=== PATIENT | female | born 1945 | race Caucasian/White ===

== ENCOUNTER 2023-02-27 00:36 | Observation (INO) ==
[2023-02-27 01:13] LABS: Basophils # (auto) 0.03 K/uL (0.00-0.20); Basophils % (auto) 0.5 %; Eosinophils # (auto) 0.15 K/uL (0.00-0.50); Eosinophils % (auto) 2.5 %; Hematocrit (blood only) 37.1 % (37.0-47.0); Hemoglobin 12.4 g/dl (12.0-16.0); Immature Granulocytes # (auto) 0.02 K/uL (0.01-0.20); Immature Granulocytes % (auto) 0.3 %; Lymphocytes # (auto) 1.72 K/uL (1.20-3.40); Lymphocytes % (auto) 28.3 %; Mean Corpuscular Hgb Conc 33.4 g/dL (32.0-36.0); Mean Corpuscular Volume 86.7 fL (80.0-100.0); Mean Platelet Volume 11.1 fL (9.4-12.4); Monocytes # (auto) 0.63 K/uL (0.11-0.59); Monocytes % (auto) 10.4 %; Neutrophils # (auto) 3.53 K/uL (1.40-6.50); Platelet Count 172 K/uL (130-400); RDW Coefficient of Variation 13.4 % (11.5-14.5); RDW Standard Deviation 41.5 fL (36.4-46.3); Red Blood Count 4.28 M/uL (4.20-5.40); White Blood Count 6.08 K/ul (4.8-10.8)
[2023-02-27 01:26] LABS: Albumin Level 3.9 gm/dl (3.4-5.0); Bilirubin,Total 0.3 mg/dl (0.2-1.0); Calcium 9.4 mg/dl (8.6-10.3); Potassium 3.9 mmol/L (3.5-5.1)
[2023-02-27 01:32] LABS: Albumin Globulin Ratio 1.4 (0.9-2); BUN Creatinine Ratio 27.6 (10-20); Creatinine Clr Calc Pharmacy 47.1 ml/min; Est GFR (African American) 73.4 ml/min; Est GFR (Non-African American) 63.4 ml/min; Globulin 2.7 gm/dl (2.5-4.0); Total Protein 6.6 gm/dl (6.0-8.3)
[2023-02-27] MEDS ORDERED: ONDANSETRON INJ 2 MG/ML 2 ML VIAL IV STA (01:46)
[2023-02-27] MEDS ORDERED: MoRPHine SULFATE 4 MG/ML 1 ML CARP\\VIAL IV STA (01:46)
--- NOTE | 2023-02-27 01:51 | Emergency Department Note ---
Impression & Plan Chest pain, Arm pain ED Provider Note NAME: SANTOS TOLEDO AGE: 77 SEX: F : 1945 ARRIVES VIA: Ambulance INFORMANT: Patient ED PROVIDER(S): Sonido Sparrow DO CHIEF COMPLAINT: chest pain and arm pain HPI: Patient is a 77-year-old female who presents to the ER with a past medical history of CAD, with bypass for chest tightness associated with right arm pain. Symptoms started around 9:00 and were severe and then improved and almost resolved. Chest tightness was to the right of the chest particular to the middle/sternal. Was initially tight and then became a pain. She was brought in by EMS. Was given nitro and aspirin. Denies any belly pain, nausea, vomiting, or diarrhea. No dysuria, urgency, or frequency. No other exacerbating or remitting factors. ADDITIONAL HISTORY OBTAINED: Per HPI Chronic Medical/Social Conditions Affecting Care: Per HPI PAST MEDICAL HISTORY:See Below PAST SURGICAL HISTORY:See Below FAMILY HISTORY:See Below SOCIAL HISTORY:See Below HOME MEDICATIONS:See Below ALLERGIES:See Below VITALS:See Below PHYSICAL EXAMINATION: GENERAL: Sitting up in bed, alert, well appearing, well nourished, no distress, non-toxic EYE EXAM: normal conjunctiva. PERRL and EOM's grossly intact. OROPHARYNX:mucous membranes are moist NECK: supple, no nuchal rigidity, no adenopathy, non-tender LUNGS: Clear to auscultation. Normal chest wall mechanics HEART: no murmurs, S1 normal and S2 normal ABDOMEN: abdomen soft, non-tender, normo-active bowel sounds, no masses, no rebound or guarding. BACK: Back is symmetrical on inspection and there is no deformity, no midline tenderness, no CVA tenderness. SKIN: no rashes and no bruising UPPER EXTREMITIES: upper extremities are grossly normal. LOWER EXTREMITIES: No pitting edema. NEURO EXAM: Normal sensorium, cranial nerves II-XII grossly intact, normal speech, no gross weakness of arms, no gross weakness of legs. No drift. Finger to nose intact. Gross sensation intact. MEDICAL DECISION MAKING: Patient is a 77-year-old female with a past medical history of aortic stenosis, CAD with a bypass, hyperlipidemia, and hypertension who presents the ER for chest pain and right arm pain. IV was established blood work was obtained. Labs show no significant leukocytosis or anemia. BMP with slightly elevated chloride at 109. LFTs bilirubin and lipase was unremarkable. Troponin was negative. She was given morphine as prior to arrival she was given aspirin nitro. Pain resolved with the morphine. Chest x-ray and EKG were clean. She was updated bedside. She was discussed with the hospitalist for further evaluation and monitoring due to her risk factors. External Records Reviewed: None Consults/Care Managements Discussions: Per MDM Triage Nursing notes reviewed. Limited review of prior medical records performed Vital Signs: reviewed and remarkable for no significant abnormalities Differential diagnosis: Cardiac ischemia, aortic dissection, pulmonary embolism, pneumothorax, pneumonia, pericarditis, myocarditis, esophageal rupture, GERD, cholecystitis, pancreatitis, musculoskeletal, as well as other pathologies. ER treatment provided: See below Diagnostics interpreted by me include EKG and cardiac monitoring as listed below: -Cardiac Monitoring: An order was placed for continuous cardiac monitoring. The monitor shows a rate of 70 with sinus rhythm. -ECG: Sinus rhythm rate of 69 Normal axis No PVCs Septal Q waves QTc 456 -Laboratory studies:Interpreted by me as stated above in MDM and shown below. Imaging studies: Xrays: As interpreted by me: Portable AP upright 1 view of the chest shows no focal infiltrate CTs show: none Procedures:none Critical Care: None Past Med/Surg History Medical History 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 Atherosclerotic heart disease of [place] coronary artery without angina pectoris CHF (congestive heart failure) Chronic pain syndrome Encephalopathy Essential hypertension GERD (gastroesophageal reflux disease) Hyperlipidemia Hypothyroidism Neurogenic claudication Osteoarthritis of shoulder region Surgical History H/O spinal fusion H/O: section History of hip replacement History of knee replacement Hx of tonsillectomy Family History Father Prostate cancer Mother Hypertension CHF (congestive heart failure) Brother Liver cancer Colon cancer Brother History of kidney cancer Diabetes CHF (congestive heart failure) Social History Smoking Status: Never smoker Hx Alcohol Use: Yes Alcohol type: wine Alcohol Intake Frequency: Monthly or Less Hx Substance Use: No Preferred Language: Georgian Feels Safe at Home: Yes Allergies Allergies Allergy/AdvReac Type Severity Reaction Status Date / Time aripiprazole Allergy Unknown UNKNOWN Unverified 08/31/21 16:00 baclofen Allergy Unknown UNKNOWN Unverified 08/31/21 16:00 diazepam Allergy Unknown UNKNOWN Unverified 08/31/21 16:00 ketorolac Allergy Unknown UNKNOWN Unverified 08/31/21 16:00 oxaprozin Allergy Unknown UNKNOWN Unverified 08/31/21 16:00 Home Meds Home Medications Medication Instructions Recorded Confirmed levothyroxine 137 mcg tablet 137 mcg PO DAILY 12/06/20 02/20/23 (Synthroid) omeprazole 20 mg tablet,delayed 20 mg PO DAILY 12/06/20 02/20/23 release potassium chloride 20 mEq oral 20 meq PO DAILY 12/06/20 02/20/23 packet trazodone 150 mg tablet 150 mg PO DAILY 12/06/20 02/20/23 atenolol 25 mg tablet 25 mg PO BID 01/17/21 02/20/23 acetaminophen 325 mg capsule 650 mg PO Q4H PRN 02/20/23 02/20/23 buspirone 7.5 mg tablet 7.5 mg PO TID 02/20/23 02/20/23 duloxetine 30 mg capsule,delayed 30 mg PO BID 02/20/23 02/20/23 release furosemide 20 mg tablet 20 mg PO BID 02/20/23 02/20/23 polyethylene glycol 3350 17 gram 17 g PO DAILY PRN 02/20/23 02/20/23 oral powder packet Previous Rx's Medication Instructions Recorded simvastatin 20 mg tablet 20 mg PO DAILY #90 tabs 08/31/21 Results & Data (ED) Vital Signs Vital Signs - 24 hr 02/27/23 00:43 02/27/23 01:00 02/27/23 01:21 Temperature 36.5 C Temperature Source Oral Pulse Rate 72 72 Pulse Rate [Apical] 71 Respiratory Rate 16 18 Blood Pressure 130/63 Blood Pressure [Right Arm] 126/64 Blood Pressure Mean 85 Blood Pressure Mean [Right Arm] 84 Pulse Oximetry 95 95 Oxygen Delivery Method Room Air Room Air Oxygen Flow Rate Sepsis Recent Fever Within 48 Hours No Sepsis New/Unexplained Change in Mental Status No Sepsis Action Taken by Nursing No Action Required Oxygen Flow Rate - Titration Pulse Oximetry Post Tiitration 02/27/23 02:31 02/27/23 02:40 02/27/23 03:00 Temperature Temperature Source Pulse Rate 69 Pulse Rate [Apical] 77 Respiratory Rate 16 18 Blood Pressure 112/66 Blood Pressure [Right Arm] 131/58 L Blood Pressure Mean 86 Blood Pressure Mean [Right Arm] 82 Pulse Oximetry 100 88 L 97 Oxygen Delivery Method Room Air Nasal Cannula Oxygen Flow Rate 0 2 Sepsis Recent Fever Within 48 Hours Sepsis New/Unexplained Change in Mental Status Sepsis Action Taken by Nursing Oxygen Flow Rate - Titration 2 Pulse Oximetry Post Tiitration 98 02/27/23 03:04 Temperature Temperature Source Pulse Rate Pulse Rate [Apical] Respiratory Rate Blood Pressure Blood Pressure [Right Arm] Blood Pressure Mean Blood Pressure Mean [Right Arm] Pulse Oximetry 98 Oxygen Delivery Method Nasal Cannula Oxygen Flow Rate 2 Sepsis Recent Fever Within 48 Hours Sepsis New/Unexplained Change in Mental Status Sepsis Action Taken by Nursing Oxygen Flow Rate - Titration Pulse Oximetry Post Tiitration Laboratory Data 02/27/23 00:44 02/27/23 00:44 Lab Results 02/27/23 Range/Units 00:44 WBC 6.08 (4.8-10.8) K/ul RBC 4.28 (4.20-5.40) M/uL Hgb 12.4 (12.0-16.0) g/dl Hct 37.1 (37.0-47.0) % MCV 86.7 (80.0-100.0) fL MCH 29.0 (25.0-34.0) pg MCHC 33.4 (32.0-36.0) g/dL RDW Std Deviation 41.5 (36.4-46.3) fL RDW Coeff of Vy 13.4 (11.5-14.5) % Plt Count 172 (130-400) K/uL MPV 11.1 (9.4-12.4) fL Immature Gran % (Auto) 0.3 % Neut % (Auto) 58.0 % Lymph % (Auto) 28.3 % [place] % (Auto) 10.4 % Eos % (Auto) 2.5 % Baso % (Auto) 0.5 % Neut # (Auto) 3.53 (1.40-6.50) K/uL Lymph # (Auto) 1.72 (1.20-3.40) K/uL [place] # (Auto) 0.63 H (0.11-0.59) K/uL Eos # (Auto) 0.15 (0.00-0.50) K/uL Baso # (Auto) 0.03 (0.00-0.20) K/uL Immature Gran # (Auto) 0.02 (0.01-0.20) K/uL Sodium 141 (136-145) mmol/L Potassium 3.9 (3.5-5.1) mmol/L Chloride 109 H (98-107) mmol/L Carbon Dioxide 26 (21-32) mmol/L Anion Gap 6 (3-11) BUN 24 H (6-23) mg/dl Creatinine 0.87 (0.6-1.2) mg/dl Est Cr Clr Drug Dosing 47.1 ml/min Est GFR ( Amer) 73.4 ml/min Est GFR (Non-Af Amer) 63.4 ml/min BUN/Creatinine Ratio 27.6 H (10-20) Glucose 99 (70-99(Fasting)) mg/dl Calcium 9.4 (8.6-10.3) mg/dl Total Bilirubin 0.3 (0.2-1.0) mg/dl AST 15 (13-39) U/L ALT 11 (7-52) U/L Alkaline Phosphatase 81 (34-104) U/L Troponin I High Sens 7.0 (0-14) pg/ml Total Protein 6.6 (6.0-8.3) gm/dl Albumin 3.9 (3.4-5.0) gm/dl Globulin 2.7 (2.5-4.0) gm/dl Albumin/Globulin Ratio 1.4 (0.9-2) Lipase 66 (11-82) U/L Administered Medications Discontinued Medications Morphine Sulfate (Morphine Sulfate 4 Mg/Ml 1 Ml Carp\Vial) 4 mg IV NOW STA Stop: 02/27/23 01:47 Last Admin: 02/27/23 01:52 Dose: 4 mg Documented By: MARY JO Ondansetron HCl (Ondansetron Inj 2 Mg/Ml 2 Ml Vial) 4 mg IV NOW STA Stop: 02/27/23 01:47 Last Admin: 02/27/23 01:52 Dose: 4 mg Documented By: MARY JO Discharge Plan Visit Data Chief Complaint: Chest Pain Stated Complaint: Chest Pain, R Arm Pain ED Provider: Sonido Sparrow Discharge Problem: Chest pain, Arm pain Forms Stand Alone Forms: My [facility] Prescriptions Prescriptions: No Action trazodone 150 mg tablet 150 mg PO DAILY levothyroxine [Synthroid] 137 mcg tablet 137 mcg PO DAILY potassium chloride 20 mEq packet 20 meq PO DAILY omeprazole 20 mg tablet,delayed release (DR/EC) 20 mg PO DAILY atenolol 25 mg tablet 25 mg PO BID furosemide 20 mg tablet 20 mg PO BID buspirone 7.5 mg tablet 7.5 mg PO TID duloxetine 30 mg capsule,delayed release(DR/EC) 30 mg PO BID acetaminophen 325 mg capsule 650 mg PO Q4H PRN polyethylene glycol 3350 17 gram powder in packet 17 g PO DAILY PRN simvastatin 20 mg tablet 20 mg PO DAILY Qty: 90 3RF Referrals Referrals: Kimberly Guerra [Primary Care Provider] - Discharge Problem: Chest pain Qualifiers: Chest pain type: unspecified Qualified Code(s): R07.9 - Chest pain, unspecified Arm pain Qualifiers: Laterality: right Qualified Code(s): M79.601 - Pain in right arm
--- NOTE | 2023-02-27 07:01 | History & Physical Report ---
Date of Service February 27, 2023 Assessment & Plan (1) Chest pain: Plan: 77-year-old female with past medical history significant for CAD s/p CABG, CHF hypertension, hyperlipidemia, hypothyroidism, aortic stenosis, after sleep apnea but not using CPAP comes from [facility] with chest pain. Chest pain History of CAD status post stents and CABG EKG and troponin Currently chest pain-free we will follow serial cardiac enzymes and echo We will repeat patient monitor in telemetry N.p.o. for now Continue atenolol and statin Consult cardiology. Chronic diastolic CHF Moderate to severe aortic stenosis Continue home Lasix Monitor for volume overload Hypothyroidism on Synthyroid Hypertension Atenolol and Lasix. Lower extremity edema mildly erythematous will check Doppler. DVT prophylaxis SCDs for now. Disposition Observation med/telemetry Full code History of Present Illness Chief Complaint: Chest pain Primary Care Provider: [facility] 77-year-old female with past medical history significant for CAD s/p CABG, CHF hypertension, hyperlipidemia, hypothyroidism, aortic stenosis, sleep apnea but not using CPAP comes from [facility] with chest pain. Around 9 PM last evening she had right-sided chest pain radiated to right arm severe in severity. Lasted until she got aspirin and nitro. Currently chest pain resolved. Denies any headache. Vision is okay. No runny nose or sore throat. No cough. No fevers. During the episode she felt short of breath. Had some dizziness. No nausea. No abdominal pain. Normal bowel and bladder movements. Ambulates with a walker. She states she has chronic lower extremity edema right greater than left because of vein graft from Right leg. Legs are slightly erythematous and she states it is chronic. Past medical history as mentioned above Past surgical history. CABG, s/p cardiac stents, bilateral hip replacement. Right knee arthroplasty. Lumbar fusion surgery. Social history. No smoking. No alcohol. No drugs. Family history. Positive for heart disease as per records Allergies Allergy/AdvReac Type Severity Reaction Status Date / Time aripiprazole Allergy Unknown UNKNOWN Unverified 08/31/21 16:00 baclofen Allergy Unknown UNKNOWN Unverified 08/31/21 16:00 diazepam Allergy Unknown UNKNOWN Unverified 08/31/21 16:00 ketorolac Allergy Unknown UNKNOWN Unverified 08/31/21 16:00 oxaprozin Allergy Unknown UNKNOWN Unverified 08/31/21 16:00 Home Medications Medication Instructions Recorded Confirmed Type levothyroxine 137 mcg tablet 137 mcg PO DAILY 12/06/20 02/27/23 History (Synthroid) omeprazole 20 mg tablet,delayed 20 mg PO DAILY 12/06/20 02/27/23 History release potassium chloride 20 mEq oral 20 meq PO DAILY 12/06/20 02/27/23 History packet trazodone 150 mg tablet 150 mg PO DAILY 12/06/20 02/27/23 History atenolol 25 mg tablet 25 mg PO BID 01/17/21 02/27/23 History simvastatin 20 mg tablet 20 mg PO DAILY #90 tabs 08/31/21 02/27/23 Rx acetaminophen 325 mg capsule 650 mg PO Q4H PRN Constipation 02/20/23 02/27/23 History buspirone 7.5 mg tablet 7.5 mg PO TID 02/20/23 02/27/23 History duloxetine 30 mg capsule,delayed 30 mg PO BID 02/20/23 02/27/23 History release furosemide 20 mg tablet 20 mg PO BID 02/20/23 02/27/23 History Past Med/Surg History Medical History 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 Atherosclerotic heart disease of [place] coronary artery without angina pectoris CHF (congestive heart failure) Chronic pain syndrome Encephalopathy Essential hypertension GERD (gastroesophageal reflux disease) Hyperlipidemia Hypothyroidism Neurogenic claudication Osteoarthritis of shoulder region Surgical History H/O spinal fusion H/O: section History of hip replacement History of knee replacement Hx of tonsillectomy Family History Father Prostate cancer Mother Hypertension CHF (congestive heart failure) Brother Liver cancer Colon cancer Brother History of kidney cancer Diabetes CHF (congestive heart failure) Social History Smoking Status: Never smoker Hx Alcohol Use: Yes Alcohol type: wine Alcohol Intake Frequency: Monthly or Less Hx Substance Use: No Preferred Language: Estonian Feels Safe at Home: Yes Review of Systems Review of Systems: All systems reviewed & are unremarkable except as noted in HPI & below Physical Exam 2 Physical Exam: General- Not in distress Head- atraumatic Eyes- PERRL. ENT- oropharynx clear Neck- supple, no JVD. Lungs- clear to auscultation no wheezing or crackles. Heart- regular rhythm; no murmur, no gallop. Abdomen- normal bowel sounds, soft, nontender, no distension. Extremities- b/l lower extremity edema present Rt>Lt. Mild erythematous changes seen in lower extremity Neuro- alert, oriented x 3; PERRL, ; no facial palsy; no dysarthria; Skin- warm & dry Results & Data Results & Data Vital Signs (Past 12 Hours) Vital Signs Temp Pulse Pulse Resp BP BP Pulse Ox 02/27/23 05:30 64 18 117/63 98 02/27/23 05:00 64 22 125/63 96 02/27/23 04:30 67 18 121/70 98 02/27/23 04:00 71 14 121/61 96 02/27/23 03:30 65 18 125/67 96 02/27/23 03:04 98 02/27/23 03:00 69 18 112/66 97 02/27/23 02:40 88 L 02/27/23 02:31 77 16 131/58 L 100 02/27/23 01:21 72 02/27/23 01:00 71 18 126/64 95 02/27/23 00:43 36.5 C 72 16 130/63 95 O2 Del Method O2 Flow Rate 02/27/23 05:30 02/27/23 05:00 02/27/23 04:30 02/27/23 04:00 02/27/23 03:30 02/27/23 03:04 Nasal Cannula 2 02/27/23 03:00 Nasal Cannula 2 02/27/23 02:40 0 02/27/23 02:31 Room Air 02/27/23 01:21 02/27/23 01:00 Room Air 02/27/23 00:43 Room Air Diagnostic Findings Laboratory Results WBC 6.08 K/ul (4.8-10.8) 02/27/23 00:44 RBC 4.28 M/uL (4.20-5.40) 02/27/23 00:44 Hgb 12.4 g/dl (12.0-16.0) 02/27/23 00:44 Hct 37.1 % (37.0-47.0) 02/27/23 00:44 MCV 86.7 fL (80.0-100.0) 02/27/23 00:44 MCH 29.0 pg (25.0-34.0) 02/27/23 00:44 MCHC 33.4 g/dL (32.0-36.0) 02/27/23 00:44 RDW Std Deviation 41.5 fL (36.4-46.3) 02/27/23 00:44 RDW Coeff of Vy 13.4 % (11.5-14.5) 02/27/23 00:44 Plt Count 172 K/uL (130-400) 02/27/23 00:44 MPV 11.1 fL (9.4-12.4) 02/27/23 00:44 Immature Gran % (Auto) 0.3 % 02/27/23 00:44 Neut % (Auto) 58.0 % 02/27/23 00:44 Lymph % (Auto) 28.3 % 02/27/23 00:44 [place] % (Auto) 10.4 % 02/27/23 00:44 Eos % (Auto) 2.5 % 02/27/23 00:44 Baso % (Auto) 0.5 % 02/27/23 00:44 Neut # (Auto) 3.53 K/uL (1.40-6.50) 02/27/23 00:44 Lymph # (Auto) 1.72 K/uL (1.20-3.40) 02/27/23 00:44 [place] # (Auto) 0.63 K/uL (0.11-0.59) H 02/27/23 00:44 Eos # (Auto) 0.15 K/uL (0.00-0.50) 02/27/23 00:44 Baso # (Auto) 0.03 K/uL (0.00-0.20) 02/27/23 00:44 Immature Gran # (Auto) 0.02 K/uL (0.01-0.20) 02/27/23 00:44 Sodium 141 mmol/L (136-145) 02/27/23 00:44 Potassium 3.9 mmol/L (3.5-5.1) 02/27/23 00:44 Chloride 109 mmol/L (98-107) H 02/27/23 00:44 Carbon Dioxide 26 mmol/L (21-32) 02/27/23 00:44 Anion Gap 6 (3-11) 02/27/23 00:44 BUN 24 mg/dl (6-23) H 02/27/23 00:44 Creatinine 0.87 mg/dl (0.6-1.2) 02/27/23 00:44 Est Cr Clr Drug Dosing 47.1 ml/min 02/27/23 00:44 Est GFR ( Amer) 73.4 ml/min 02/27/23 00:44 Est GFR (Non-Af Amer) 63.4 ml/min 02/27/23 00:44 BUN/Creatinine Ratio 27.6 (10-20) H 02/27/23 00:44 Glucose 99 mg/dl (70-99(Fasting)) 02/27/23 00:44 Calcium 9.4 mg/dl (8.6-10.3) 02/27/23 00:44 Total Bilirubin 0.3 mg/dl (0.2-1.0) 02/27/23 00:44 AST 15 U/L (13-39) 02/27/23 00:44 ALT 11 U/L (7-52) 02/27/23 00:44 Alkaline Phosphatase 81 U/L (34-104) 02/27/23 00:44 Troponin I High Sens 7.0 pg/ml (0-14) 02/27/23 00:44 Total Protein 6.6 gm/dl (6.0-8.3) 02/27/23 00:44 Albumin 3.9 gm/dl (3.4-5.0) 02/27/23 00:44 Globulin 2.7 gm/dl (2.5-4.0) 02/27/23 00:44 Albumin/Globulin Ratio 1.4 (0.9-2) 02/27/23 00:44 Lipase 66 U/L (11-82) 02/27/23 00:44 ECG Additional Comments: ECG. Normal sinus rhythm with rate of 69. No significant change was found. Code Status & VTE Plan VTE Prophylaxis Plan VTE Prophylaxis will be ordered: Yes (1) Chest pain Chest pain type: unspecified Qualified Code(s): R07.9 - Chest pain, unspecified
--- NOTE | 2023-02-27 07:05 | XRay Report ---
XR chest 1V portable HISTORY: 77 years-old Female Chest pain, nonspecific COMPARISON: Left shoulder radiographs 09/30/2018 TECHNIQUE: AP view of the chest FINDINGS: Cardiac silhouette is enlarged. Sternotomy wires are noted. No pneumothorax, pleural effusion, airspa ce consolidation or pulmonary edema. Degenerative changes of the spine and right shoulder. Left shoul calista postoperative changes with arthroplasty revision. IMPRESSION: Cardiomegaly without acute process. ACT 112: Negative or not required by law. The above report was generated using voice recognition software. It may contain grammatical, syntax o r spelling errors. Electronically signed by: Chavez Palma M.D. 02/27/2023 7:03 AM
[2023-02-27] MEDS ORDERED: POLYETHYLENE (MIRALAX) 17 GM PACK PO PRN (07:46)
[2023-02-27] MEDS ORDERED: NITROGLYCERIN SL 0.4 MG/TAB TAB SL PRN (07:46)
--- NOTE | 2023-02-27 08:36 | Electrocardiogram Report ---
Test Reason : Blood Pressure : / mmHG Vent. Rate : 069 BPM Atrial Rate : 069 BPM P-R Int : 196 ms QRS Dur : 088 ms QT Int : 426 ms P-R-T Axes : 051 -03 036 degrees QTc Int : 456 ms Normal sinus rhythm Normal ECG When compared with ECG of 04-FEB-2015 07:57, No significant change was found Confirmed by Shawn Kumar ([id number]) on 02/27/2023 8:35:45 AM Referred By: [facility] Confirmed By:Shawn Kumar
[2023-02-27] MEDS ORDERED: SIMVASTATIN 20 MG TAB PO SCH (09:00)
[2023-02-27 09:11] LABS: Basophils # (auto) 0.03 K/uL (0.00-0.20); Basophils % (auto) 0.5 %; Eosinophils # (auto) 0.15 K/uL (0.00-0.50); Eosinophils % (auto) 2.6 %; Hematocrit (blood only) 36.8 % (37.0-47.0); Hemoglobin 12.1 g/dl (12.0-16.0); Immature Granulocytes # (auto) 0.02 K/uL (0.01-0.20); Immature Granulocytes % (auto) 0.4 %; Lymphocytes % (auto) 31.7 %; Mean Corpuscular Hgb Conc 32.9 g/dL (32.0-36.0); Mean Corpuscular Volume 88.2 fL (80.0-100.0); Mean Platelet Volume 10.4 fL (9.4-12.4); Monocytes # (auto) 0.62 K/uL (0.11-0.59); Monocytes % (auto) 10.9 %; Neutrophils # (auto) 3.05 K/uL (1.40-6.50); Neutrophils % (auto) 53.9 %; Platelet Count 143 K/uL (130-400); RDW Coefficient of Variation 13.4 % (11.5-14.5); RDW Standard Deviation 43.3 fL (36.4-46.3); Red Blood Count 4.17 M/uL (4.20-5.40); White Blood Count 5.67 K/ul (4.8-10.8)
[2023-02-27 09:19] LABS: BUN Creatinine Ratio 31.7 (10-20); Calcium 9.3 mg/dl (8.6-10.3); Est GFR (African American) 78.9 ml/min; Est GFR (Non-African American) 68.1 ml/min; Potassium 4.3 mmol/L (3.5-5.1)
[2023-02-27 09:24] LABS: Troponin I High Sensitivity 5.6 pg/ml (0-14)
--- NOTE | 2023-02-27 09:51 | XCELERA ---
[id number]
[2023-02-27] MEDS: LEVOTHYROXINE SODIUM 137 MCG TABLET PO SCH (09:52)
--- NOTE | 2023-02-27 10:04 | Ultrasound Report ---
BILATERAL LOWER EXTREMITY VENOUS DOPPLER HISTORY: Acute pain and swelling of the lower legs b/l lower extremity edema and eythema. dvt? COMPARISON STUDY: 01/17/2023 FINDINGS: There is normal compressibility, flow, and augmentation within the bilateral lower extremit y deep venous systems. IMPRESSION: No DVT within the right or left lower extremity. ACT 112: Negative or not required by law. Electronically signed by: Chavez Palma M.D. 02/27/2023 10:02 AM
--- NOTE | 2023-02-27 10:45 | Cardiology Consultation ---
Date of Consultation February 27, 2023 Assessment & Plan (1) Right shoulder pain: (2) CAD (coronary artery disease): (3) S/P CABG x 2: (4) Severe aortic stenosis: (5) (HFpEF) heart failure with preserved ejection fraction: (6) Ambulatory dysfunction: (7) Essential hypertension: Plan 1. Shoulder pain: 77-year-old woman with severe aortic stenosis and longstanding coronary artery disease with multiple revascularizations (including CABG) who had abrupt onset of severe right shoulder and chest discomfort yesterday with normal ECG and negative serial troponin draws. Her shoulder pain seems most likely musculoskeletal or neuropathic and should be addressed as such. There is no evidence of ongoing myocardial ischemia, congestive heart failure, or dysrhythmia. 2. CAD/CABG: Would not recommend stress testing at this point, since an abnormal study would not likely change advisor. In the absence of lifestyle limiting symptoms directly attributable to myocardial ischemia, continued medical management of her coronary artery disease would be more appropriate than revascularization. Since her shoulder pain seems noncardiac, attempts at improving her cardiac status will not affect her symptoms. Unclear why she is no longer taking aspirin 81 mg daily, if no contraindication would resume aspirin. She has been on longstanding atenolol, the dose was reduced last year, unclear whether it was increased back to twice daily or current dosing does not reflect this change. With history of syncope, presence of severe aortic stenosis, and borderline bradycardia, would recommend reducing atenolol from 25 mg twice daily to 25 mg daily. Continue statin indefinitely, would recommend changing from simvastatin to atorvastatin 20 mg daily given reduced potential for medication interactions w ith atorvastatin. 3. Severe aortic stenosis/ambulatory dysfunction: Although echocardiographically severe, she currently does not have lifestyle limiting symptoms, as her activity is more limited by ambulatory dysfunction then valvular disease. Although she would be a transcatheter aortic valve replacement (TAVR) candidate, would only consider this if she had lifestyle limiting symptoms (severe dyspnea on exertion, angina at low workloads, recurrent syncope). 4. HFpEF: No overt heart failure or hospitalizations for heart failure. Presumptive diagnosis based on the fact she is on furosemide 20 mg twice daily. She appears euvolemic currently, no change in her routine diuretic regimen. 5. Hypertension: BP normotensive on atenolol and furosemide. As noted, would recommend reducing atenolol dosing. History of Present Illness Reason for Consultation: Chest pain Requesting Physician: Eldon Vickers MD Attending Physician: Cr Dubose MD History of Present Illness 77-year-old woman with severe aortic stenosis, longstanding coronary artery disease (remote NV, 6 stents, CABG 2017, details unavailable), mild HFpEF, and ambulatory dysfunction (walks with a walker) who is a resident of [facility] and was admitted earlier today with right shoulder discomfort radiating to her chest. 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 Although she had does have limitations from the right shoulder she does not have chronic pain. Yesterday, while at rest, she noted abrupt onset of right shoulder discomfort radiating to her chest and right elbow. She still had the pain upon ER presentation where ECG was normal and troponin unremarkable. She states that the discomfort gradually improved but never resolved, she still has a "dull ache" right shoulder which is not exacerbated by positional change. She has discomfort when pushing her right arm against resistance, but this is "different" in character than her right shoulder discomfort. She denies any diaphoresis, nausea, dyspnea, palpitations, presyncope, or syncope. She does note periodic vertigo type symptoms which can occur when she is lying down. She does have severe aortic stenosis and dyspnea on moderate levels of exertion. She states that her dyspneic symptoms are not lifestyle limiting and are unchanged over the past year. She denies orthopnea or PND. She has chronic mild right leg edema. She had a hospitalization March 2022 for ureteral stone, upon discharge she had a mechanical fall and a subsequent stay at [facility] due to ambulatory dysfunction. She did have an unexplained syncopal episode early in 2021 and it is recommended that her atenolol be reduced from 25 mg twice daily to once daily at that time. Most recently, she had been able to ambulate with her walker without difficulty and felt reasonably well. At the time of my evaluation this morning, she still had very mild right shoulder achiness but no other somatic complaints at rest. Allergies Allergy/AdvReac Type Severity Reaction Status Date / Time aripiprazole Allergy Unknown UNKNOWN Unverified 08/31/21 16:00 baclofen Allergy Unknown UNKNOWN Unverified 08/31/21 16:00 diazepam Allergy Unknown UNKNOWN Unverified 08/31/21 16:00 ketorolac Allergy Unknown UNKNOWN Unverified 08/31/21 16:00 oxaprozin Allergy Unknown UNKNOWN Unverified 08/31/21 16:00 Home Medications Medication Instructions Recorded Confirmed Type levothyroxine 137 mcg tablet 137 mcg PO DAILY 12/06/20 02/27/23 History (Synthroid) omeprazole 20 mg tablet,delayed 20 mg PO DAILY 12/06/20 02/27/23 History release potassium chloride 20 mEq oral 20 meq PO DAILY 12/06/20 02/27/23 History packet trazodone 150 mg tablet 150 mg PO DAILY 12/06/20 02/27/23 History atenolol 25 mg tablet 25 mg PO BID 01/17/21 02/27/23 History simvastatin 20 mg tablet 20 mg PO DAILY #90 tabs 08/31/21 02/27/23 Rx acetaminophen 325 mg capsule 650 mg PO Q4H PRN Constipation 02/20/23 02/27/23 History buspirone 7.5 mg tablet 7.5 mg PO TID 02/20/23 02/27/23 History duloxetine 30 mg capsule,delayed 30 mg PO BID 02/20/23 02/27/23 History release furosemide 20 mg tablet 20 mg PO BID 02/20/23 02/27/23 History Patient History Medical History Neurogenic claudication Chronic pain syndrome CHF (congestive heart failure) 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 Atherosclerotic heart disease of [place] coronary artery without angina pectoris Hypothyroidism Osteoarthritis of shoulder region Hyperlipidemia GERD (gastroesophageal reflux disease) Essential hypertension Encephalopathy Surgical History H/O: section Hx of tonsillectomy History of knee replacement History of hip replacement H/O spinal fusion Family History Father Prostate cancer Mother Hypertension CHF (congestive heart failure) Brother Liver cancer Colon cancer Brother History of kidney cancer Diabetes CHF (congestive heart failure) Social History Smoking Status: Never smoker Hx Alcohol Use: Yes Alcohol type: wine Alcohol Intake Frequency: Monthly or Less Hx Substance Use: No Communication Ability: Effective Beliefs That Will Affect Care: None Current Living Situation: Personal Care Facility Feels Safe at Home: Yes Safety Concerns: Feels Safe At This Time Physical Exam Physical Exam: No distress. BP normotensive. Pulse 64 bpm and regular without ectopy. Respirations unlabored. Skin: no ecchymoses or generalized lesions. HEENT: unremarkable. Neck: JVP at the clavicle at 90 degrees, bilateral transmitted carotid murmur. Lungs: clear. Cardiac: regular rhythm, diminished but audible aortic closure sound, 3/6 elias cendo decrescendo systolic ejection murmur right upper sternal border rating widely (carotids, left sternal border), 2/6 apical holosystolic murmur rating to the axilla, no diastolic murmur. Abdomen: benign. Extremities: Trace pretibial edema, right greater than left, pulses intact. Neurologic: normal affect and conversation, nonfocal. Results & Data Laboratory Results Troponin values of 7.0 and 5.6. Normal CBC. Normal electrolytes with BUN 26 and creatinine 0.82. Magnesium 2.0. Diagnostic Findings ECG on admission showed sinus rhythm at 69 bpm and was completely unremarkable. Compared with 2014 ECG, no significant change. Echocardiogram done today showed EF 60 to 65% with moderate LVH and grade 1 diastolic dysfunction, severe AR/mild to moderate MR. Unchanged compared with September 2021 study. Chest x-ray showed cardiomegaly without acute process. Venous Doppler showed no DVT right or left lower extremity. PG Care Time/CCT Total # of Minutes Spent Total Time Spent with Patient: Total time spent is greater than 50% in coordination of care (as documented) at patient's floor/unit and/or counseling patient: Coding Level of Care Code 53568 IN/OBS CONSULT LVL 4,60M Diagnoses Right shoulder pain M25.511 CAD (coronary artery disease) I25.10 S/P CABG x 2 Z95.1 Severe aortic stenosis I35.0 (HFpEF) heart failure with preserved ejection fraction I50.30 Ambulatory dysfunction R26.2 Essential hypertension I10
[2023-02-27] MEDS: POTASSIUM CHLORIDE PWD 20 MEQ PACK PO SCH (10:58)
[2023-02-27] MEDS: busPIRone 7.5 MG TAB PO SCH ×3 (10:59→21:43)
[2023-02-27] MEDS: DULoxetine HCL 30 MG CAP PO SCH ×3 (11:00→21:46)
[2023-02-27] MEDS: FUROSEMIDE 20 MG TAB PO SCH ×2 (11:00→17:24)
[2023-02-27] MEDS: PANTOprazole 40 MG TAB PO SCH (11:00)
[2023-02-27] MEDS: ATENOLOL 25 MG TABLET PO SCH ×2 (11:01→21:43)
--- NOTE | 2023-02-27 14:07 | XRay Report ---
XR shoulder RT min 2V routine CLINICAL HISTORY: r shoulder pain TECHNIQUE: 3 views of the right shoulder were obtained. Comparison: None available at the time of this dictation. FINDINGS: There is no evidence of an acute fracture. Degenerative changes are seen in the glenohumeral joint. T he overlying soft tissues are unremarkable. The visualized portions of the lungs are clear. IMPRESSION: Degenerative changes without evidence of acute abnormality. ACT 112: Negative or not required by law. Electronically signed by: Humza Butcher M.D. 02/27/2023 2:06 PM
[2023-02-27] MEDS ORDERED: traZODone HCL 50 MG TAB PO SCH (21:00)
[2023-02-27] MEDS: ACETAMINOPHEN 325 MG TAB PO PRN (21:41)
[2023-02-28] MEDS: LEVOTHYROXINE SODIUM 137 MCG TABLET PO SCH (06:42)
[2023-02-28] MEDS: ACETAMINOPHEN 325 MG TAB PO PRN (06:48)
[2023-02-28] MEDS: DULoxetine HCL 30 MG CAP PO SCH (08:36)
[2023-02-28] MEDS: FUROSEMIDE 20 MG TAB PO SCH ×2 (08:36→16:38)
[2023-02-28] MEDS: ATENOLOL 25 MG TABLET PO SCH (08:36)
[2023-02-28] MEDS: PANTOprazole 40 MG TAB PO SCH (08:36)
[2023-02-28] MEDS: busPIRone 7.5 MG TAB PO SCH ×2 (08:36→13:53)
[2023-02-28] MEDS: POTASSIUM CHLORIDE PWD 20 MEQ PACK PO SCH (08:36)
[2023-02-28] MEDS ORDERED: ATORVASTATIN 20 MG TAB PO SCH ×2 (09:00→21:00)
[2023-02-28] MEDS ORDERED: Nursing to Pharmacy Communication SCH (10:00)
--- NOTE | 2023-02-28 13:06 | Cardiology Progress Note ---
Date of Service February 28, 2023 Assessment & Plan (1) Right shoulder pain: (2) CAD (coronary artery disease): (3) S/P CABG x 2: (4) Severe aortic stenosis: (5) (HFpEF) heart failure with preserved ejection fraction: (6) Ambulatory dysfunction: (7) Essential hypertension: Plan As noted, pain seems either musculoskeletal or neuropathic. No cardiac testing planned. Despite significant ongoing symptoms and her ECG and enzymes remain normal. Would recommend resuming aspirin 81 mg daily for CAD/CABG patient. Given blunted heart rate response despite physiologic stress of pain/discomfort, could decrease atenolol to 25 mg daily As noted, would not proceed to TAVR in the absence of lifestyle limiting symptoms (which are not present currently). Appears euvolemic and no overt heart failure on her usual diuretic regimen of furosemide 20 mg twice daily. BP normotensive on atenolol and furosemide. Admission and Anticipated Discharge Date Admission Date: February 27, 2023 Subjective Uneventful night. Patient notes that this morning she "aches all over". No chest pain but still has right shoulder discomfort which is mild to moderate and essentially unchanged over the past 24 hours. No dyspnea, palpitations, or lightheadedness. Telemetry showed sinus rhythm in the 60 to 70 bpm range with no significant ectopy or dysrhythmia. Physical Exam Physical Exam: No distress. BP normotensive. Pulse 68 bpm and regular without ectopy. Respirations unlabored. Skin: no ecchymoses or generalized lesions. HEENT: unremarkable. Neck: JVP at the clavicle at 90 degrees, bilateral transmitted carotid murmur. Lungs: clear. Cardiac: regular rhythm, diminished but audible aortic closure sound, 3/6 crescendo decrescendo systolic ejection murmur right upper sternal border rating widely (carotids, left sternal border), 2/6 apical holosystolic murmur rating to the axilla, no diastolic murmur. Abdomen: benign. Extremities: Trace pretibial edema, right greater than left, pulses intact. Neurologic: normal affect and conversation, nonfocal. Results & Data Vital Signs (Past 12 Hours) Vital Signs Temp Pulse Pulse Resp BP Pulse Ox O2 Del Method 02/28/23 12:59 97.9 F 69 18 113/66 97 Room Air 02/28/23 08:15 69 02/28/23 08:13 97.7 F 71 14 111/69 96 Room Air 02/28/23 03:40 97.5 F L 68 18 140/82 95 Room Air Laboratory Results Troponin negative x4. Diagnostic Findings ECG today showed sinus rhythm with loss of a small R wave in V2 versus yesterday (likely lead placement), otherwise no significant change. ST segments were isoelectric. PG Care Time/CCT Total # of Minutes Spent Total Time Spent with Patient: Total time spent is greater than 50% in coordination of care (as documented) at patient's floor/unit and/or counseling patient: Coding Level of Care Code 37491 SUB INP/OBS CARE 2/35MIN Diagnoses Right shoulder pain M25.511 CAD (coronary artery disease) I25.10 S/P CABG x 2 Z95.1 Severe aortic stenosis I35.0 (HFpEF) heart failure with preserved ejection fraction I50.30 Ambulatory dysfunction R26.2 Essential hypertension I10
--- NOTE | 2023-02-28 13:59 | Hospitalist Progress Note ---
Date of Service February 28, 2023 Assessment & Plan (1) Chest pain: Plan: per admitting service notes with addendum: 77-year-old female with past medical history significant for CAD s/p CABG, CHF hypertension, hyperlipidemia, hypothyroidism, aortic stenosis, after sleep apnea but not using CPAP comes from [facility] with chest pain. 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 Kumar no further cardiac diagnostic studies/interventions at this time recommend: ASA 81mg po daily, Decrease Atenolol to 25mg daily (patient declines as she needs BID dosing for BP control), change Simvastatin to Rosuvastatin R shoulder Pain, secondary to Osteoarthritis Shoulder Xray: There is no evidence of an acute fracture. Degenerative changes are seen in the glenohumeral joint. The overlying soft tissues are unremarkable. The visualized portions of the lungs are clear. IMPRESSION: Degenerative changes without evidence of acute abnormality. patient would like to ff up with [facility] as outpatient, for possible steroid injection Chronic diastolic CHF Moderate to severe aortic stenosis Continue home Lasix Hypothyroidism on Synthyroid Hypertension Atenolol and Lasix. Lower extremity edema mildly erythematous check Doppler: no DVT DVT prophylaxis SCDs for now. Disposition return to [facility] ff up with PCP in 1 week ff up with Ortho in 1 week Admission and Anticipated Discharge Date Admission Date: February 27, 2023 Subjective ff up for R shoulder pain, etc seen resting in chair, comfortable states she feels fine overall mild R shoulder discomfort no chest pain, dyspnea, palpitations, dizziness no R arm numbness, weakness, paresthesias no other symptom Review of Systems Review of Systems: all noted and negative except for above Physical Exam Physical Exam: General- oriented x 3, not in distress, speaks in sentences with no effort or accessory muscle use Eyes- anicteric Neck- no JVD Lungs- clear breath sounds bilaterally, no rales/wheezes Heart- normal rate, regular rhythm; no murmurs Abdomen- normal bowel sounds, nondistended, soft, nontender Extremities- no pretibial edema, no calf tenderness Neuro- alert, oriented x 3; no gross focal neurologic deficits Skin- warm & dry Results & Data Results & Data Vital Signs (Past 12 Hours) Vital Signs Temp Pulse Pulse Resp BP Pulse Ox O2 Del Method 02/28/23 12:59 36.6 C 69 18 113/66 97 Room Air 02/28/23 08:15 69 02/28/23 08:13 36.5 C 71 14 111/69 96 Room Air 02/28/23 03:40 36.4 C L 68 18 140/82 95 Room Air all noted and reviewed including below (1) Chest pain Chest pain type: unspecified Qualified Code(s): R07.9 - Chest pain, unspecified
--- NOTE | 2023-02-28 14:14 | Discharge Summary ---
Discharge Summary Date of Service February 28, 2023 Notes For Next Care Provider Medication Changes From Visit TAKE A BABY ASPIRIN DAILY, ALWAYS WITH A FULL STOMACH CHANGE SIMVASTATIN TO ROSUVASTATIN Admission HPI Per Admitting Provider 77-year-old female with past medical history significant for CAD s/p CABG, CHF hypertension, hyperlipidemia, hypothyroidism, aortic stenosis, sleep apnea but not using CPAP comes from [facility] with chest pain. Around 9 PM last evening she had right-sided chest pain radiated to right arm severe in severity. Lasted until she got aspirin and nitro. Currently chest pain resolved. Denies any headache. Vision is okay. No runny nose or sore throat. No cough. No fevers. During the episode she felt short of breath. Had some dizziness. No nausea. No abdominal pain. Normal bowel and bladder movements. Ambulates with a walker. She states she has chronic lower extremity edema right greater than left because of vein graft from Right leg. Legs are slightly erythematous and she states it is chronic. Past medical history as mentioned above Past surgical history. CABG, s/p cardiac stents, bilateral hip replacement. Right knee arthroplasty. Lumbar fusion surgery. Social history. No smoking. No alcohol. No drugs. Family history. Positive for heart disease as per records Admission Exam Per Admitting Provider General- Not in distress Head- atraumatic Eyes- PERRL. ENT- oropharynx clear Neck- supple, no JVD. Lungs- clear to auscultation no wheezing or crackles. Heart- regular rhythm; no murmur, no gallop. Abdomen- normal bowel sounds, soft, nontender, no distension. Extremities- b/l lower extremity edema present Rt>Lt. Mild erythematous changes seen in lower extremity Neuro- alert, oriented x 3; PERRL, ; no facial palsy; no dysarthria; Skin- warm & dry Principal Dx & Hospital Course #1 = Principal Diagnosis (1) Chest pain: per admitting service notes with addendum: 77-year-old female with past medical history significant for CAD s/p CABG, CHF hypertension, hyperlipidemia, hypothyroidism, aortic stenosis, after sleep apnea but not using CPAP comes from [facility] with chest pain. 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 Degenerative changes are seen in the glenohumeral joint. The overlying soft tissues are unremarkable. The visualized portions of the lungs are clear. IMPRESSION: Degenerative changes without evidence of acute abnormality. patient would like to ff up with [facility] as outpatient, for possible steroid injection Chronic diastolic CHF Moderate to severe aortic stenosis Continue home Lasix Hypothyroidism on Synthyroid Hypertension Atenolol and Lasix. Lower extremity edema mildly erythematous check Doppler: no DVT DVT prophylaxis SCDs for now. Disposition return to [facility] ff up with PCP in 1 week ff up with Ortho in 1 week Discharge Exam General- oriented x 3, not in distress, speaks in sentences with no effort or accessory muscle use Eyes- anicteric Neck- no JVD Lungs- clear breath sounds bilaterally, no rales/wheezes Heart- normal rate, regular rhythm; no murmurs Abdomen- normal bowel sounds, nondistended, soft, nontender Extremities- no pretibial edema, no calf tenderness Neuro- alert, oriented x 3; no gross focal neurologic deficits Skin- warm & dry Updated Medication List Medication Instructions Recorded Confirmed Type levothyroxine 137 mcg tablet 137 mcg PO DAILY 12/06/20 02/27/23 History (Synthroid) omeprazole 20 mg tablet,delayed 20 mg PO DAILY 12/06/20 02/27/23 History release potassium chloride 20 mEq oral 20 meq PO DAILY 12/06/20 02/27/23 History packet trazodone 150 mg tablet 150 mg PO DAILY 12/06/20 02/27/23 History atenolol 25 mg tablet 25 mg PO BID 01/17/21 02/27/23 History simvastatin 20 mg tablet 20 mg PO DAILY #90 tabs 08/31/21 02/27/23 Rx acetaminophen 325 mg capsule 650 mg PO Q4H PRN Constipation 02/20/23 02/27/23 History buspirone 7.5 mg tablet 7.5 mg PO TID 02/20/23 02/27/23 History duloxetine 30 mg capsule,delayed 30 mg PO BID 02/20/23 02/27/23 History release furosemide 20 mg tablet 20 mg PO BID 02/20/23 02/27/23 History aspirin 81 mg tablet,delayed 81 mg PO DAILY #30 tabs 02/28/23 Rx release (Ecotrin Low Strength) atorvastatin 20 mg tablet 20 mg PO HS #30 tabs 02/28/23 Rx Hospital Stay Data Consultations 02/27/23 02:49 ED Decision to Admit Stat 02/27/23 08:00 Consult Cardiology Routine 02/27/23 19:33 Consult Orthopedic Surgery Routine Diagnostic Imagining Performed 02/27/23 08:13 US venous doppler LE BI Urgent Pending Results Patient Have Any Pending Studies at Discharge: No Discharge Instructions Given to Patient (Per Discharging Provider) PLEASE REFER TO YOUR NEW MEDICATION LIST AND FOLLOW INSTRUCTIONS CAREFULLY. YOUR NEW MEDICATIONS INCLUDE: TAKE A BABY ASPIRIN DAILY, ALWAYS WITH A FULL STOMACH CHANGE SIMVASTATIN TO ROSUVASTATIN PLEASE CALL YOUR PRIMARY CARE PHYSICIAN OR RETURN TO THE ER IF WITH WORSENING OF SYMPTOMS, INCLUDING WORSENING SHOULDER PAIN, ARM WEAKNESS/NUMBNESS, CHEST PAIN, SHORTNESS OF BREATH, PALPITATIONS, DIZZINESS, ETC FOLLOW UP WITH PRIMARY CARE PHYSICIAN IN 1 WEEK. FOLLOW UP WITH ORTHOPEDIC SURGEON IN 1-2 WEEKS FOR POSSIBLE STEROID INJECTION. PLEASE CONTACT THEIR OFFICE TO SET UP AN APPOINTMENT: [facility] [address] [place] [address], [place] [address] or Hours: 8 pm 5 pm Total Time Total Time Spent Total Time Spent (In Minutes): >30 MINUTES
--- NOTE | 2023-02-28 15:07 | Orthopedic Consultation ---
Date of Consultation February 28, 2023 Assessment & Plan (1) Rotator cuff tear arthropathy of right shoulder: She has obvious chronic right shoulder rotator cuff tear arthropathy. It sounds like her right shoulder pain has been progressively worsening over quite some time, but got more severe in the past few days. She has never had this treated before. No urgent orthopedic surgical intervention required. Recommend follow- up in clinic for further more detailed evaluation and treatment of this chronic shoulder problem. Follow-up with Dr. Pathak in orthopedic surgery clinic at some point 2 to 4 weeks after discharge. Please call [facility] at [phone] to make an appointment. History of Present Illness Reason for Consultation: "R shoulder pain" Attending Physician: Cr Dubose MD History of Present Illness Ms. Pham is a 77-year-old female with acute on chronic right shoulder pain. She initially stated that the right shoulder only started hurting her 2 days ago, but upon further questioning she does admit to more chronic pain. She says that her right shoulder has really been hurting her all her life. 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 She notes pain whenever she lays on that shoulder. She has had to switch most activities to her nondominant left arm over the past year due to increased right shoulder pain. She has never had the right shoulder evaluated or treated in the past. She notes multiple other joint replacements, including in her left shoulder. Allergies Allergy/AdvReac Type Severity Reaction Status Date / Time aripiprazole Allergy Unknown UNKNOWN Unverified 08/31/21 16:00 baclofen Allergy Unknown UNKNOWN Unverified 08/31/21 16:00 diazepam Allergy Unknown UNKNOWN Unverified 08/31/21 16:00 ketorolac Allergy Unknown UNKNOWN Unverified 08/31/21 16:00 oxaprozin Allergy Unknown UNKNOWN Unverified 08/31/21 16:00 Home Medications Medication Instructions Recorded Confirmed Type levothyroxine 137 mcg tablet 137 mcg PO DAILY 12/06/20 02/27/23 History (Synthroid) omeprazole 20 mg tablet,delayed 20 mg PO DAILY 12/06/20 02/27/23 History release potassium chloride 20 mEq oral 20 meq PO DAILY 12/06/20 02/27/23 History packet trazodone 150 mg tablet 150 mg PO DAILY 12/06/20 02/27/23 History atenolol 25 mg tablet 25 mg PO BID 01/17/21 02/27/23 History simvastatin 20 mg tablet 20 mg PO DAILY #90 tabs 08/31/21 02/27/23 Rx acetaminophen 325 mg capsule 650 mg PO Q4H PRN Constipation 02/20/23 02/27/23 History buspirone 7.5 mg tablet 7.5 mg PO TID 02/20/23 02/27/23 History duloxetine 30 mg capsule,delayed 30 mg PO BID 02/20/23 02/27/23 History release furosemide 20 mg tablet 20 mg PO BID 02/20/23 02/27/23 History aspirin 81 mg tablet,delayed 81 mg PO DAILY #30 tabs 02/28/23 Rx release (Ecotrin Low Strength) atorvastatin 20 mg tablet 20 mg PO HS #30 tabs 02/28/23 Rx Patient History Medical History Neurogenic claudication Chronic pain syndrome CHF (congestive heart failure) 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 Hypothyroidism Osteoarthritis of shoulder region Hyperlipidemia GERD (gastroesophageal reflux disease) Essential hypertension Encephalopathy Surgical History H/O: section Hx of tonsillectomy History of knee replacement History of hip replacement H/O spinal fusion Family History Father Prostate cancer Mother Hypertension CHF (congestive heart failure) Brother Liver cancer Colon cancer Brother History of kidney cancer Diabetes CHF (congestive heart failure) Social History Smoking Status: Never smoker Hx Alcohol Use: Yes Alcohol type: wine Alcohol Intake Frequency: Monthly or Less Hx Substance Use: No Communication Ability: Effective Beliefs That Will Affect Care: None Current Living Situation: Personal Care Facility Feels Safe at Home: Yes Safety Concerns: Feels Safe At This Time Assistive Devices: Glasses and Walker Physical Exam Physical Exam: Examination of the right shoulder is limited and suboptimal due to patient's current inpatient status in bed. She does have limited shoulder abduction up to about 80 degrees, which she states is normal for her and has been that way for many years. Results & Data Vital Signs (Past 12 Hours) Vital Signs Temp Pulse Pulse Resp BP Pulse Ox O2 Del Method 02/28/23 12:59 36.6 C 69 18 113/66 97 Room Air 02/28/23 08:15 69 02/28/23 08:13 36.5 C 71 14 111/69 96 Room Air 02/28/23 03:40 36.4 C L 68 18 140/82 95 Room Air Diagnostic Findings Right shoulder x-rays were independently interpreted by me. They show moderate to severe glenohumeral joint arthritis. There is obvious proximal migration of the humeral head with remodeling changes on the undersurface of the acromion consistent with obvious chronic rotator cuff tear arthropathy.
--- NOTE | 2023-03-01 15:29 | Electrocardiogram Report ---
Test Reason : Blood Pressure : / mmHG Vent. Rate : 065 BPM Atrial Rate : 065 BPM P-R Int : 180 ms QRS Dur : 084 ms QT Int : 436 ms P-R-T Axes : 052 -05 043 degrees QTc Int : 453 ms Poor data quality, interpretation may be adversely affected Normal sinus rhythm Left atrial enlargement Cannot rule out Old Septal infarct Abnormal ECG When compared with ECG of 27-FEB-2023 00:41, Borderline Criteria for Septal infarct is now Present Confirmed by Shawn Kumar ([id number]) on 03/01/2023 3:29:01 PM Referred By: [facility] Confirmed By:Shawn Kumar
== END 2023-02-28 17:42 ==
LOC: EDINP 00:36 → ED 00:36 → SUATTDRO 05:43 → 2N 07:47

== ENCOUNTER 2024-02-10 09:14 | Inpatient (IN) ==
[2024-02-10 09:36] LABS: Basophils # (auto) 0.06 K/uL (0.00-0.20); Basophils % (auto) 0.8 %; Eosinophils # (auto) 0.24 K/uL (0.00-0.50); Hematocrit (blood only) 38.6 % (37.0-47.0); Hemoglobin 12.6 g/dl (12.0-16.0); Immature Granulocytes # (auto) 0.02 K/uL (0.01-0.20); Immature Granulocytes % (auto) 0.3 %; Lymphocytes # (auto) 1.82 K/uL (1.20-3.40); Lymphocytes % (auto) 23.1 %; Mean Corpuscular Hgb Conc 32.6 g/dL (32.0-36.0); Mean Corpuscular Volume 88.7 fL (80.0-100.0); Mean Platelet Volume 10.6 fL (9.4-12.4); Monocytes # (auto) 0.58 K/uL (0.11-0.59); Monocytes % (auto) 7.4 %; Neutrophils # (auto) 5.16 K/uL (1.40-6.50); Neutrophils % (auto) 65.4 %; Platelet Count 198 K/uL (130-400); RDW Coefficient of Variation 13.7 % (11.5-14.5); Red Blood Count 4.35 M/uL (4.20-5.40); White Blood Count 7.88 K/ul (4.8-10.8)
--- NOTE | 2024-02-10 09:44 | XRay Report ---
XR chest 1V portable HISTORY: 78 years-old Female Chest pain, nonspecific COMPARISON: 01/24/2024 TECHNIQUE: AP view of the chest FINDINGS: Cardiac silhouette is enlarged. Median sternotomy. Mild chronic interstitial coarsening. No pneumotho rax, pleural effusion or overt pulmonary edema. Prominent epicardial fat pad redemonstrated. Unchange d appearance of the left humerus. IMPRESSION: Cardiomegaly without acute process. ACT 112: Negative or not required by law. The above report was generated using voice recognition software. It may contain grammatical, syntax o r spelling errors. Electronically signed by: Chavez Palma M.D. 02/10/2024 9:43 AM
[2024-02-10 09:57] LABS: Albumin Globulin Ratio 1.4 (0.9-2); BUN Creatinine Ratio 21.3 (10-20); Bilirubin,Total 0.4 mg/dl (0.2-1.0); Calcium 9.4 mg/dl (8.6-10.3); Creatinine Clr Calc Pharmacy 53.7 ml/min; Globulin 2.9 gm/dl (2.5-4.0); Potassium 4.1 mmol/L (3.5-5.1); Total Protein 6.9 gm/dl (6.0-8.3)
[2024-02-10] MEDS: NITROGLYCERIN SL 0.4 MG/TAB TAB SL STA (09:58)
[2024-02-10 10:00] LABS: Prothrombin Time 10.5 Seconds (9.0-12.0)
--- NOTE | 2024-02-10 10:02 | Emergency Department Note ---
Impression & Plan Chest pain ED Provider Note HISTORY OF PRESENT ILLNESS: Patient is an 78-year-old female presenting with chest pain. Patient reports that she was in bed at around 6 AM this morning when she developed substernal chest pressure. Describes the pain as a pressure sensation and states that it does not radiate. She reports she was short of breath with the chest pain. She states this pain feels similar to her previous episodes of chest pain when she is required stenting or a bypass. She was given 324 mg of aspirin and a nitro prehospital. Reports that her pain went from a 10 to a 6 out of 10. She is still complaining of some substernal chest pressure. She reports that the nitro she was given did seem to help. She has a history of cardiac stents and cardiac bypass. She is on aspirin daily but no other anticoagulation or antiplatelet therapy. She denies any recent cough or fevers. Denies any nausea or vomiting. Denies any abdominal pain ROS: as above PHYSICAL EXAM: Constitutional: Patient appears in no acute distress. HENT: Head: Normocephalic and atraumatic. Eyes: EOMI, PERRL Mouth/Throat: Mucous membranes moist. Neck: Trachea midline. Neck supple. Cardiovascular: RRR, No murmurs, rubs or gallops. Intact distal pulses. Pulmonary/Chest: No respiratory distress. Breath sounds clear and equal bilaterally. No wheezes or rales. Abdominal: Abdomen soft, no tenderness, rebound or guarding. Musculoskeletal: No edema, tenderness or deformity noted. Skin: Warm and dry. No rash, erythema, pallor or cyanosis Psychiatric: Appropriate mood and affect for situation. Neurological: Alert and keenly responsive. CN II-XII grossly intact, moving all extremities equally and fully. MDM: - Vitals signs showed hypertension - History obtained via patient. History as above. - Chronic conditions affecting care: CAD (S/p CABG); CHF; HTN; HLD; hypothyroidism; aortic stenosis - Differential diagnoses include, but are not limited to: Acute coronary syndrome; pulmonary embolism; dissection; tension pneumothorax; esophageal rupture; pneumonia - Order placed for continuous cardiac monitoring. At this time, monitor showed rate of 80 bpm with normal sinus rhythm, per my interpretation. - External medical records reviewed. Cardiology visit note dated was reviewed. Patient follows in their clinic for her multiple cardiac etiologies. She was switched to bumetanide from furosemide at that visit. - EKG interpreted by myself showed normal sinus rhythm. Rate 72 bpm. QT 408. No acute ischemic changes. Noted to have some ST depressions in V5. - Laboratory workup interpreted by myself showed normal WBC; stable electrolytes; normal troponin; elevated BNP (172); normal lipase - CXR negative for pneumonia, per my interpretation - Patient given 0.4 mg SL nitro in ER with some slight improvement in her chest pressure - Repeat troponin within normal limits. - Moderate HEART score. No recent cardiac testing in our system. - Discussion was had with case checker about patient's case and need for admission - Hospitalist consulted for admission [facility] ASSESSMENT AND PLAN: Diagnosis: Chest pain Plan: admit Past Med/Surg History Problem List (Updated 02/10/24 @ 12:08 by Debbie Gleason MD) Chest pain (Acute) Stented coronary artery LVH (left ventricular hypertrophy) Rotator cuff tear arthropathy of right shoulder (HFpEF) heart failure with preserved ejection fraction S/P CABG x 2 (Acute) Ambulatory dysfunction CAD (coronary artery disease) Severe aortic stenosis Right shoulder pain Arm pain (Acute) Chest pain (Acute) Antiplatelet or antithrombotic long-term use Neurogenic claudication Lumbar spinal stenosis Chronic pain syndrome (Acute) Atherosclerotic heart disease of [place] coronary artery without angina pectoris Hypothyroidism Hyperlipidemia GERD (gastroesophageal reflux disease) Essential hypertension Weakness generalized (Acute) Medical History Neurogenic claudication Chronic pain syndrome CHF (congestive heart failure) 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 Hypothyroidism Osteoarthritis of shoulder region Hyperlipidemia GERD (gastroesophageal reflux disease) Essential hypertension Encephalopathy Surgical History H/O: section Hx of tonsillectomy History of knee replacement History of hip replacement H/O spinal fusion Family History Father Prostate cancer Mother Hypertension CHF (congestive heart failure) Brother Liver cancer Colon cancer Brother History of kidney cancer Diabetes CHF (congestive heart failure) Social History Smoking Status: Never smoker Hx Alcohol Use: Yes Alcohol type: wine Alcohol Intake Frequency: Monthly or Less Hx Substance Use: No Communication Ability: Effective Beliefs That Will Affect Care: None Current Living Situation: Personal Care Facility Feels Safe at Home: Yes Assistive Devices: Glasses and Walker Allergies Allergies Allergy/AdvReac Type Severity Reaction Status Date / Time aripiprazole Allergy Unknown UNKNOWN Unverified 01/24/24 18:52 baclofen Allergy Unknown UNKNOWN Unverified 01/24/24 18:52 diazepam Allergy Unknown UNKNOWN Unverified 01/24/24 18:52 ketorolac Allergy Unknown UNKNOWN Unverified 01/24/24 18:52 oxaprozin Allergy Unknown UNKNOWN Unverified 01/24/24 18:52 Home Meds Home Medications Medication Instructions Recorded Confirmed levothyroxine 137 mcg tablet 112 mcg PO QAM 12/06/20 02/10/24 (Synthroid) trazodone 150 mg tablet 150 mg PO HS 12/06/20 02/10/24 atenolol 25 mg tablet 25 mg PO BID 01/17/21 02/10/24 acetaminophen 325 mg capsule 650 mg PO Q4H PRN mild pain/fever 02/20/23 02/10/24 duloxetine 30 mg capsule,delayed 30 mg PO QAM 08/01/23 02/10/24 release omeprazole 20 mg capsule,delayed 20 mg PO QAM 01/24/24 02/10/24 release oxybutynin chloride 10 mg 10 mg PO QAM 01/24/24 02/10/24 tablet,extended release 24 hr potassium chloride 20 mEq 20 meq PO QAM 01/24/24 02/10/24 tablet,extended release(part/cryst) aspirin 81 mg tablet,delayed 81 mg PO QAM 02/10/24 02/10/24 release (Ecotrin Low Strength) bumetanide 1 mg tablet 3 mg PO UD 02/10/24 02/10/24 lidocaine 5 % topical patch 1 patch topical DAILY PRN Pain 02/10/24 02/10/24 polyethylene glycol 3350 17 17 g PO DAILY PRN Constipation 02/10/24 02/10/24 gram/dose oral powder (Miralax) Previous Rx's Medication Instructions Recorded atorvastatin 20 mg tablet 20 mg PO HS #30 tabs 11/16/23 Results & Data (ED) Vital Signs Vital Signs - 24 hr 02/10/24 09:14 02/10/24 09:14 02/10/24 09:24 Temperature 36.6 C Temperature Source Oral Pulse Rate 82 Pulse Rate [Apical] Respiratory Rate 17 Respiratory Effort / Characteristics Non-Labored Respiratory Depth Normal Blood Pressure 152/76 H Blood Pressure [Right Arm] Blood Pressure Mean 101 Blood Pressure Mean [Right Arm] Blood Pressure Position Lying Pulse Oximetry 95 98 Oxygen Delivery Method Room Air Room Air Room Air Sepsis Recent Fever Within 48 Hours No Sepsis New/Unexplained Change in Mental Status No Sepsis Action Taken by Nursing No Action Required 02/10/24 09:45 02/10/24 11:22 Temperature Temperature Source Pulse Rate 79 Pulse Rate [Apical] 71 Respiratory Rate 20 Respiratory Effort / Characteristics Non-Labored Respiratory Depth Normal Blood Pressure Blood Pressure [Right Arm] 134/83 Blood Pressure Mean Blood Pressure Mean [Right Arm] 100 Blood Pressure Position Pulse Oximetry 98 Oxygen Delivery Method Room Air Sepsis Recent Fever Within 48 Hours Sepsis New/Unexplained Change in Mental Status Sepsis Action Taken by Nursing Laboratory Data 02/10/24 09:22 02/10/24 09:22 Lab Results 02/10/24 02/10/24 02/10/24 Range/Units 09:22 09:29 11:19 WBC 7.88 (4.8-10.8) K/ul RBC 4.35 (4.20-5.40) M/uL Hgb 12.6 (12.0-16.0) g/dl Hct 38.6 (37.0-47.0) % MCV 88.7 (80.0-100.0) fL MCH 29.0 (25.0-34.0) pg MCHC 32.6 (32.0-36.0) g/dL RDW Std Deviation 45.0 (36.4-46.3) fL RDW Coeff of Vy 13.7 (11.5-14.5) % Plt Count 198 (130-400) K/uL MPV 10.6 (9.4-12.4) fL Immature Gran % (Auto) 0.3 % Neut % (Auto) 65.4 % Lymph % (Auto) 23.1 % [place] % (Auto) 7.4 % Eos % (Auto) 3.0 % Baso % (Auto) 0.8 % Neut # (Auto) 5.16 (1.40-6.50) K/uL Lymph # (Auto) 1.82 (1.20-3.40) K/uL [place] # (Auto) 0.58 (0.11-0.59) K/uL Eos # (Auto) 0.24 (0.00-0.50) K/uL Baso # (Auto) 0.06 (0.00-0.20) K/uL Immature Gran # (Auto) 0.02 (0.01-0.20) K/uL PT 10.5 (9.0-12.0) Seconds INR 1.0 (0.9-1.1) Sodium 141 (136-145) mmol/L Potassium 4.1 (3.5-5.1) mmol/L Chloride 110 H (98-107) mmol/L Carbon Dioxide 24 (21-32) mmol/L Anion Gap 7 (3-11) BUN 17 (6-23) mg/dl Creatinine 0.80 (0.6-1.2) mg/dl Est Cr Clr Drug Dosing 53.7 ml/min eGFR 74.44 BUN/Creatinine Ratio 21.3 H (10-20) Glucose 95 (70-99(Fasting)) mg/dl Calcium 9.4 (8.6-10.3) mg/dl Magnesium 2.0 (1.7-2.4) mg/dl Total Bilirubin 0.4 (0.2-1.0) mg/dl AST 16 (13-39) U/L ALT 12 (7-52) U/L Alkaline Phosphatase 91 (34-104) U/L Troponin I High Sens 9.8 7.7 (0-14) pg/ml B-Natriuretic Peptide 172 H (0-100) pg/ml Total Protein 6.9 (6.0-8.3) gm/dl Albumin 4.0 (3.4-5.0) gm/dl Globulin 2.9 (2.5-4.0) gm/dl Albumin/Globulin Ratio 1.4 (0.9-2) Lipase 36 (11-82) U/L Administered Medications Discontinued Medications Nitroglycerin (Nitroglycerin Sl 0.4 Mg/Tab Tab) 0.4 mg SL NOW STA Stop: 02/10/24 09:52 Last Admin: 02/10/24 09:58 Dose: 0.4 mg Documented By: ES Imaging Data Radiologist's Impression: Chest X-Ray 02/10/24 09:23 XR chest 1V portable HISTORY: 78 years-old Female Chest pain, nonspecific COMPARISON: 01/24/2024 TECHNIQUE: AP view of the chest FINDINGS: Cardiac silhouette is enlarged. Median sternotomy. Mild chronic interstitial coarsening. No pneumothorax, pleural effusion or overt pulmonary edema. Prominent epicardial fat pad redemonstrated. Unchanged appearance of the left humerus. IMPRESSION: Cardiomegaly without acute process. ACT 112: Negative or not required by law. The above report was generated using voice recognition software. It may contain grammatical, syntax or spelling errors. Electronically signed by: Chavez Palma M.D. 02/10/2024 9:43 AM Discharge Plan Visit Data Chief Complaint: Chest Pain Stated Complaint: chest pain ED Provider: Debbie Gleason Discharge Problem: Chest pain Forms Stand Alone Forms: [facility] Prescriptions Prescriptions: No Action trazodone 150 mg tablet 150 mg PO HS levothyroxine [Synthroid] 137 mcg tablet 112 mcg PO QAM atenolol 25 mg tablet 25 mg PO BID acetaminophen 325 mg capsule 650 mg PO Q4H PRN (Reason: mild pain/fever) duloxetine 30 mg capsule,delayed release(DR/EC) 30 mg PO QAM atorvastatin 20 mg Tablet 20 mg PO HS Qty: 30 2RF oxybutynin chloride 10 mg tablet extended release 24hr 10 mg PO QAM potassium chloride 20 mEq tablet,ER particles/crystals 20 meq PO QAM omeprazole 20 mg capsule,delayed release(DR/EC) 20 mg PO QAM lidocaine 5 % Adhesive Patch,Medicated 1 patch TOPICAL DAILY PRN (Reason: Pain) Rx Instructions: leave on most painful area for up to 12 hrs polyethylene glycol 3350 [Miralax] 17 gram/dose Powder 17 g PO DAILY PRN (Reason: Constipation) aspirin [Ecotrin Low Strength] 81 mg tablet,delayed release (DR/EC) 81 mg PO QAM bumetanide 1 mg tablet 3 mg PO UD Rx Instructions: Take 3 tablets by mouth daily until breathing and body weight are at baseline. When at baseline take 2mg (1mg x2) [facility]
[2024-02-10 10:04] LABS: Troponin I High Sensitivity 9.8 pg/ml (0-14)
--- NOTE | 2024-02-10 12:20 | History & Physical Report ---
Date of Service February 10, 2024 Assessment & Plan (1) Chest pain: Plan: This is an 78 y/o female with hx CAD s/p CABG x 2, PCI x 2, severe aortic stenosis, HFpEF, moderate LVH, HTN, GERD, dyslipidemia, OA, hypothyroid, and depression who presented to the ED today from [facility] with chest pain. Today's episode of chest discomfort and shortness of breath at rest was preceded by approximately one week of progressive exertional symptoms that have gradually worsened. Initial work-up in the ED showed normal troponin x 2, mildly elevated BNP, chest x-ray without acute process. She received nitro x 2 doses with improvement but not resolution of pain. Due to her multiple cardiac risk factors, pt was referred for admission for further cardiac evaluation. She is on aspirin but not plavix at baseline. - Admit to PCU - Trend troponin, repeat EKG in the AM - Update ECHO - Consult cardiology for additional recommendations - Continue aspirin, pt is not on clopidogrel at baseline (2) CAD (coronary artery disease): Plan: See plan for #1 (3) Severe aortic stenosis: Plan: Plan per last cardio note was for TAVR but pt has not been able to lie flat for the cardiac cath Update ECHO as above Cardio consult as discussed (4) (HFpEF) heart failure with preserved ejection fraction: Plan: Chronic Continue outpatient bumetanide (5) Essential hypertension: Plan: Chronic, stable Continue outpatient regimen (6) GERD (gastroesophageal reflux disease): Plan: Chronic, stable Continue daily PPI (7) Hypothyroidism: Plan: Chronic, stable Continue levothyroxine (8) Hyperlipidemia: Plan: Chronic, stable Continue statin Plan Pt seen and reviewed with Dr. Woodruff. Plan of care discussed and as outlined above. Code status: Full code DVT prophylaxis: lovenox Admit to PCU Noa Johnson PA-C History of Present Illness Chief Complaint: chest pain Primary Care Provider: Eren Ybarra DO This is an 78 y/o female with hx CAD s/p CABG x 2, PCI x 2, severe aortic stenosis, HFpEF, moderate LVH, HTN, GERD, dyslipidemia, OA, hypothyroid, and depression who presented to the ED today from [facility] with chest pain. She reports that this morning, around 6 am, she developed chest discomfort and pressure in the substernal region with associated shortness of breath. She reports about one week of dyspnea on exertion with occasional similar chest discomfort. This FERNÁNDEZ has been worsening in severity, and she now finds that the she has to stop and rest multiple times just walking from her room to the dining room at the facility, which is new for her. Today was the first time she had symptoms at rest. She notes sleeping in a chair chronically since she has difficulty lying flat. EMS was called and gave patient aspirin and a dose of nitro pre-hospital with improvement but not resolution of pain. In the ED, pt received another dose of nitro with improvement though still not resolution of the discomfort. She now notes associated upped back discomfort as well. She denies palpitations, syncope, DELA CRUZ, N/V. Her breathing has improved. She denies significant peripheral edema, recent illness, changes in bowel or bladder function. She follows with [facility] with last visit in July 2023 at which time her diuretics were changed from furosemide to bumetanide as the furosemide no longer seemed to be working. She has known severe aortic stenosis and was being considered for a TAVR once her HF was improved (specifically needing to be able to lie flat for the pre-valve cardia cath, but patient reports nothing has been discussed regarding the procedure since her last appointment. She reports being compliant with her medications. ECHO - EF 60-65%, normal LV wall motion, moderate concentric LVH, grade I diastolic dysfunction, severe valvular aortic stenosis, moderate mitral annular calcification, mild to moderate mitral regurgitation. Allergies Allergy/AdvReac Type Severity Reaction Status Date / Time aripiprazole Allergy Unknown UNKNOWN Unverified 01/24/24 18:52 baclofen Allergy Unknown UNKNOWN Unverified 01/24/24 18:52 diazepam Allergy Unknown UNKNOWN Unverified 01/24/24 18:52 ketorolac Allergy Unknown UNKNOWN Unverified 01/24/24 18:52 oxaprozin Allergy Unknown UNKNOWN Unverified 01/24/24 18:52 Home Medications Medication Instructions Recorded Confirmed Type levothyroxine 137 mcg tablet 112 mcg PO QAM 12/06/20 02/10/24 History (Synthroid) trazodone 150 mg tablet 150 mg PO HS 12/06/20 02/10/24 History atenolol 25 mg tablet 25 mg PO BID 01/17/21 02/10/24 History acetaminophen 325 mg capsule 650 mg PO Q4H PRN mild pain/fever 02/20/23 02/10/24 History atorvastatin 20 mg tablet 20 mg PO HS #30 tabs 02/28/23 02/10/24 Rx duloxetine 30 mg capsule,delayed 30 mg PO QAM 08/01/23 02/10/24 History release omeprazole 20 mg capsule,delayed 20 mg PO QAM 01/24/24 02/10/24 History release oxybutynin chloride 10 mg 10 mg PO QAM 01/24/24 02/10/24 History tablet,extended release 24 hr potassium chloride 20 mEq 20 meq PO QAM 01/24/24 02/10/24 History tablet,extended release(part/cryst) aspirin 81 mg tablet,delayed 81 mg PO QAM 02/10/24 02/10/24 History release (Ecotrin Low Strength) bumetanide 1 mg tablet 3 mg PO UD 02/10/24 02/10/24 History lidocaine 5 % topical patch 1 patch topical DAILY PRN Pain 02/10/24 02/10/24 History polyethylene glycol 3350 17 17 g PO DAILY PRN Constipation 02/10/24 02/10/24 History gram/dose oral powder (Miralax) Past Med/Surg History Problem List (Updated 02/10/24 @ 12:56 by Isidra Johnson PA-C) Chest pain (Acute) Stented coronary artery LVH (left ventricular hypertrophy) Rotator cuff tear arthropathy of right shoulder (HFpEF) heart failure with preserved ejection fraction S/P CABG x 2 (Acute) Ambulatory dysfunction CAD (coronary artery disease) Severe aortic stenosis Right shoulder pain Arm pain (Acute) Chest pain (Acute) Antiplatelet or antithrombotic long-term use Neurogenic claudication Lumbar spinal stenosis Chronic pain syndrome (Acute) Atherosclerotic heart disease of [place] coronary artery without angina pectoris Hypothyroidism Hyperlipidemia GERD (gastroesophageal reflux disease) Essential hypertension Weakness generalized (Acute) Medical History Neurogenic claudication Chronic pain syndrome CHF (congestive heart failure) 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 Atherosclerotic heart disease of [place] coronary artery without angina pectoris Hypothyroidism Osteoarthritis of shoulder region Hyperlipidemia GERD (gastroesophageal reflux disease) Essential hypertension Encephalopathy Surgical History H/O: section Hx of tonsillectomy History of knee replacement History of hip replacement H/O spinal fusion Family History Father Prostate cancer Mother Hypertension CHF (congestive heart failure) Brother Liver cancer Colon cancer Brother History of kidney cancer Diabetes CHF (congestive heart failure) Social History Smoking Status: Never smoker Hx Alcohol Use: Yes Alcohol type: wine Alcohol Intake Frequency: Monthly or Less Hx Substance Use: No Communication Ability: Effective Beliefs That Will Affect Care: None Current Living Situation: Personal Care Facility Feels Safe at Home: Yes Assistive Devices: Glasses and Walker Review of Systems Review of Systems: All systems reviewed & are unremarkable except as noted in Subjective Physical Exam Physical Exam: General: awake, alert, NAD HEENT: no scleral icterus, moist oral mucosa Heart: RRR, +systolic murmur Lungs: CTA bilaterally, no W/R/R Abdomen: soft, NT, +BS Extremities: no pedal edema Skin: warm, dry, no jaundice Neurologic: O x 3, no confusion or dysarthria, moving all extremities, no focal deficits Results & Data Results & Data Vital Signs (Past 12 Hours) Vital Signs Temp Pulse Pulse Resp BP BP Pulse Ox 02/10/24 11:22 71 20 134/83 98 02/10/24 09:45 79 02/10/24 09:24 98 02/10/24 09:14 95 02/10/24 09:14 36.6 C 82 17 152/76 H O2 Del Method 02/10/24 11:22 Room Air 02/10/24 09:45 02/10/24 09:24 Room Air 02/10/24 09:14 Room Air 02/10/24 09:14 Room Air Laboratory Results Lab Results 02/10/24 02/10/24 02/10/24 Range/Units 09:22 09:29 11:19 WBC 7.88 (4.8-10.8) K/ul RBC 4.35 (4.20-5.40) M/uL Hgb 12.6 (12.0-16.0) g/dl Hct 38.6 (37.0-47.0) % MCV 88.7 (80.0-100.0) fL MCH 29.0 (25.0-34.0) pg MCHC 32.6 (32.0-36.0) g/dL RDW Std Deviation 45.0 (36.4-46.3) fL RDW Coeff of Vy 13.7 (11.5-14.5) % Plt Count 198 (130-400) K/uL MPV 10.6 (9.4-12.4) fL Immature Gran % (Auto) 0.3 % Neut % (Auto) 65.4 % Lymph % (Auto) 23.1 % [place] % (Auto) 7.4 % Eos % (Auto) 3.0 % Baso % (Auto) 0.8 % Neut # (Auto) 5.16 (1.40-6.50) K/uL Lymph # (Auto) 1.82 (1.20-3.40) K/uL [place] # (Auto) 0.58 (0.11-0.59) K/uL Eos # (Auto) 0.24 (0.00-0.50) K/uL Baso # (Auto) 0.06 (0.00-0.20) K/uL Immature Gran # (Auto) 0.02 (0.01-0.20) K/uL PT 10.5 (9.0-12.0) Seconds INR 1.0 (0.9-1.1) Sodium 141 (136-145) mmol/L Potassium 4.1 (3.5-5.1) mmol/L Chloride 110 H (98-107) mmol/L Carbon Dioxide 24 (21-32) mmol/L Anion Gap 7 (3-11) BUN 17 (6-23) mg/dl Creatinine 0.80 (0.6-1.2) mg/dl Est Cr Clr Drug Dosing 53.7 ml/min eGFR 74.44 BUN/Creatinine Ratio 21.3 H (10-20) Glucose 95 (70-99(Fasting)) mg/dl Calcium 9.4 (8.6-10.3) mg/dl Magnesium 2.0 (1.7-2.4) mg/dl Total Bilirubin 0.4 (0.2-1.0) mg/dl AST 16 (13-39) U/L ALT 12 (7-52) U/L Alkaline Phosphatase 91 (34-104) U/L Troponin I High Sens 9.8 7.7 (0-14) pg/ml B-Natriuretic Peptide 172 H (0-100) pg/ml Total Protein 6.9 (6.0-8.3) gm/dl Albumin 4.0 (3.4-5.0) gm/dl Globulin 2.9 (2.5-4.0) gm/dl Albumin/Globulin Ratio 1.4 (0.9-2) Lipase 36 (11-82) U/L Diagnostic Findings Chest X-Ray 02/10/24 09:23 XR chest 1V portable HISTORY: 78 years-old Female Chest pain, nonspecific COMPARISON: 01/24/2024 TECHNIQUE: AP view of the chest FINDINGS: Cardiac silhouette is enlarged. Median sternotomy. Mild chronic interstitial coarsening. No pneumothorax, pleural effusion or overt pulmonary edema. Prominent epicardial fat pad redemonstrated. Unchanged appearance of the left humerus. IMPRESSION: Cardiomegaly without acute process. ACT 112: Negative or not required by law. The above report was generated using voice recognition software. It may contain grammatical, syntax or spelling errors. Electronically signed by: Chavez Palma M.D. 02/10/2024 9:43 AM Medications Administered Discontinued Medications Nitroglycerin (Nitroglycerin Sl 0.4 Mg/Tab Tab) 0.4 mg SL NOW STA Stop: 02/10/24 09:52 Last Admin: 02/10/24 09:58 Dose: 0.4 mg Documented By: [place] Supervising Physician Co-Signing Physician Notes Attending addendum: The patient was seen and examined in the emergency room She has been complaining of exertional shortness of breath associated with chest tightness/pain for the last few days Her chest pain does not radiate and is not associated with any radiation, palpitation, nausea and vomiting She has cough without any phlegm She does not have any leg swelling On examination Lying in bed without any acute distress Remains hemodynamically stable with blood pressure at 152/72 Chestminimal crackles at the bases HeartS1-S2 regular with a 2/6 ESM over precordium Abdomenbenign Extremities trace edema bilaterally CNSalert, awake and oriented x 3 Her admission labs, EKG and imaging studies reviewed Came in with chest pain and exertional dyspnea with significant cardiac history of stent placement and CABG. No evidence of any ACS with normal troponin and EKG now Will get serial troponins and an echo Cardiology evaluation Agree with assessment and plan as outlined above by Karen Johnson PA-C and take the full response rate of the care Dr Regine Woodruff (1) Chest pain Chest pain type: unspecified Qualified Code(s): R07.9 - Chest pain, unspecified (2) CAD (coronary artery disease) Associated angina: without angina Coronary Disease-Associated Artery/Lesion type: [place] artery [place] vs. transplanted heart: [place] heart Qualified Code(s): I25.10 - Atherosclerotic heart disease of [place] coronary artery without angina pectoris (4) (HFpEF) heart failure with preserved ejection fraction Heart failure chronicity: acute on chronic Qualified Code(s): I50.33 - Acute on chronic diastolic (congestive) heart failure (6) GERD (gastroesophageal reflux disease) Esophagitis presence: esophagitis presence not specified Qualified Code(s): K21.9 - Gastro-esophageal reflux disease without esophagitis (7) Hypothyroidism Hypothyroidism type: unspecified Qualified Code(s): E03.9 - Hypothyroidism, unspecified (8) Hyperlipidemia Hyperlipidemia type: unspecified Qualified Code(s): E78.5 - Hyperlipidemia, unspecified
[2024-02-10] MEDS ORDERED: POLYETHYLENE (MIRALAX) 17 GM PACK PO PRN (13:40)
[2024-02-10] MEDS ORDERED: NITROGLYCERIN SL 0.4 MG/TAB TAB SL PRN (13:40)
--- NOTE | 2024-02-10 15:19 | Cardiology Consultation ---
Date of Consultation February 10, 2024 Assessment & Plan (1) Chest pain: (2) CAD (coronary artery disease): (3) Severe aortic stenosis: (4) Shortness of breath: Plan 1. Chest pain: Possibly related to her known aortic stenosis. This would account for some exertional symptoms but not her rest symptoms. This does not appear to be related to coronary insufficiency or an acute coronary syndrome. Extended episodes without elevation of biomarkers. She does have a history of "atypical" chest pain as well. This can be treated symptomatically. 2. Dyspnea: This appears to be a chronic issue as well. She states that it was worse over the past couple of weeks. She does not appear to be hypervolemic. Lung examination relatively unremarkable. Chest x-ray also clear. She seems quite comfortable lying in bed currently. I think she can continue on her daily dose of diuretic. Dyspnea on exertion could be related to her valvular heart disease as well. 3. Coronary disease: She has an extensive history of coronary disease with postsurgical and percutaneous revascularization. As noted above her current symptoms do not appear to be related to ischemic heart disease. At this point she is simply continue on her aspirin, atenolol and atorvastatin. 4. Aortic stenosis: Noted to be severe. Echocardiogram today confirmed the severity of her aortic stenosis. This certainly could account for much of her symptoms. It seems she was being prepared for evaluation of a TAVR. She seems interested in proceeding. 1 step would simply be coronary angiography prior to referral and this could possibly be accomplished tomorrow. 5. Mitral valve disease: She also has an element of mitral valve disease both moderate insufficiency and stenosis. Not likely to be causing symptoms at this point. History of Present Illness Reason for Consultation: Chest pain, breathing difficulty, known aortic stenosis Requesting Physician: Alex Attending Physician: Adelia Woodruff MD History of Present Illness The patient is an 78-year-old woman with a known history of coronary artery disease having previously undergone both percutaneous and surgical revascularization. She is also known to have severe aortic stenosis a history of heart failure with preserved ejection fraction and sleep apnea. She lives in an assisted living facility. It seems that she requested transfer to the hospital due to symptoms of chest pressure. The patient will occasionally have symptoms of chest pressure. She describes this as a heavy feeling in the precordium. This tends to occur when she is walking long distances or moving more quickly than usual. Over the years she states that she has learned to "pace herself" and if she does so she rarely has these symptoms. More recently she has been short of breath as well. She states this seems to be worse over t he past 2 weeks. Due to the intense nature of her chest pressure and the fact that it did not resolve rapidly she sought medical attention. She did receive some nitroglycerin in the emergency room with limited relief. She continues to have an element of mild chest discomfort. No breathing difficulty at rest. She does not describe overt orthopnea, but seems to have some difficulty laying flat both due to back pain and difficulty taking a deep breath. There are no pleuritic symptoms. She has not noticed any palpitations or rapid heartbeats. She states that she does have an element of mild dizziness when changing positions but not presyncope. No history of syncope. She has not been checking her weight recently. She has not noticed any lower extremity edema. Allergies Allergy/AdvReac Type Severity Reaction Status Date / Time aripiprazole Allergy Unknown UNKNOWN Unverified 01/24/24 18:52 baclofen Allergy Unknown UNKNOWN Unverified 01/24/24 18:52 diazepam Allergy Unknown UNKNOWN Unverified 01/24/24 18:52 ketorolac Allergy Unknown UNKNOWN Unverified 01/24/24 18:52 oxaprozin Allergy Unknown UNKNOWN Unverified 01/24/24 18:52 Home Medications Medication Instructions Recorded Confirmed Type levothyroxine 137 mcg tablet 112 mcg PO QAM 12/06/20 02/10/24 History (Synthroid) trazodone 150 mg tablet 150 mg PO HS 12/06/20 02/10/24 History atenolol 25 mg tablet 25 mg PO BID 01/17/21 02/10/24 History acetaminophen 325 mg capsule 650 mg PO Q4H PRN mild pain/fever 02/20/23 02/10/24 History atorvastatin 20 mg tablet 20 mg PO HS #30 tabs 02/28/23 02/10/24 Rx duloxetine 30 mg capsule,delayed 30 mg PO QAM 08/01/23 02/10/24 History release omeprazole 20 mg capsule,delayed 20 mg PO QAM 01/24/24 02/10/24 History release oxybutynin chloride 10 mg 10 mg PO QAM 01/24/24 02/10/24 History tablet,extended release 24 hr potassium chloride 20 mEq 20 meq PO QAM 01/24/24 02/10/24 History tablet,extended release(part/cryst) aspirin 81 mg tablet,delayed 81 mg PO QAM 02/10/24 02/10/24 History release (Ecotrin Low Strength) bumetanide 1 mg tablet 3 mg PO UD 02/10/24 02/10/24 History lidocaine 5 % topical patch 1 patch topical DAILY PRN Pain 02/10/24 02/10/24 History polyethylene glycol 3350 17 17 g PO DAILY PRN Constipation 02/10/24 02/10/24 History gram/dose oral powder (Miralax) Patient History Medical History Neurogenic claudication Chronic pain syndrome CHF (congestive heart failure) 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 Atherosclerotic heart disease of [place] coronary artery without angina pectoris Hypothyroidism Osteoarthritis of shoulder region Hyperlipidemia GERD (gastroesophageal reflux disease) Essential hypertension Encephalopathy Surgical History H/O: section Hx of tonsillectomy History of knee replacement History of hip replacement H/O spinal fusion Family History Father Prostate cancer Mother Hypertension CHF (congestive heart failure) Brother Liver cancer Colon cancer Brother History of kidney cancer Diabetes CHF (congestive heart failure) Social History Smoking Status: Never smoker Hx Alcohol Use: Yes Alcohol type: wine Alcohol Intake Frequency: Monthly or Less Hx Substance Use: No Communication Ability: Effective Sisal Operator Required: No Beliefs That Will Affect Care: None Current Living Situation: Personal Care Facility Other Information That Helps Us Care for You: No Feels Safe at Home: Yes Safety Concerns: Feels Safe At This Time Assistive Devices: CPAP, Glasses and Walker Review of Systems Review of Systems: Per HPI Physical Exam Physical Exam: She is alert and oriented x3. Mood affect appear normal. She answered all questions appropriately. Lying somewhat upright. HEENT: Sclerae are anicteric. Pupils are equal and reactive to light and accommodation. Extraocular movements were intact. Neuro: Cranial nerves intact Lungs: Lungs are clear to auscultation bilaterally. There are no rales wheezes or rhonchi. She has normal respiratory effort without use of accessory muscles. There is normal pulmonary excursion. Cardiac: The rhythm was regular. S1 and S2 were normal. Fairly soft crescendo systolic murmur. The PMI was not markedly displaced on palpation. Abdomen: The abdomen was soft and nontender. Obese Extremities: Patient has bilateral radial pulses that are equal in intensity. There is no evidence cyanosis or clubbing. There was no evidence of significant peripheral edema bilaterally. Skin: There are no rashes noted on examination today. Results & Data Vital Signs (Past 12 Hours) Vital Signs Temp Pulse Pulse Resp BP BP Pulse Ox 02/10/24 14:18 74 02/10/24 13:17 02/10/24 13:17 36.5 C 78 18 152/80 H 97 02/10/24 12:52 62 20 133/75 96 02/10/24 12:15 64 20 152/72 H 96 02/10/24 11:22 71 20 134/83 98 02/10/24 09:45 79 02/10/24 09:24 98 02/10/24 09:14 95 02/10/24 09:14 36.6 C 82 17 152/76 H O2 Del Method 02/10/24 14:18 02/10/24 13:17 Room Air 02/10/24 13:17 Room Air 02/10/24 12:52 Room Air 02/10/24 12:15 Room Air 02/10/24 11:22 Room Air 02/10/24 09:45 02/10/24 09:24 Room Air 02/10/24 09:14 Room Air 02/10/24 09:14 Room Air Laboratory Results Abnormal Lab Results 02/10/24 02/10/24 02/10/24 09:22 09:29 11:19 WBC 7.88 RBC 4.35 Hgb 12.6 Hct 38.6 MCV 88.7 MCH 29.0 MCHC 32.6 RDW Std Deviation 45.0 RDW Coeff of Vy 13.7 Plt Count 198 MPV 10.6 Immature Gran % (Auto) 0.3 Neut % (Auto) 65.4 Lymph % (Auto) 23.1 [place] % (Auto) 7.4 Eos % (Auto) 3.0 Baso % (Auto) 0.8 Neut # (Auto) 5.16 Lymph # (Auto) 1.82 [place] # (Auto) 0.58 Eos # (Auto) 0.24 Baso # (Auto) 0.06 Immature Gran # (Auto) 0.02 PT 10.5 INR 1.0 Sodium 141 Potassium 4.1 Chloride 110 H Carbon Dioxide 24 Anion Gap 7 BUN 17 Creatinine 0.80 Est Cr Clr Drug Dosing 53.7 eGFR 74.44 BUN/Creatinine Ratio 21.3 H Glucose 95 Calcium 9.4 Magnesium 2.0 Total Bilirubin 0.4 AST 16 ALT 12 Alkaline Phosphatase 91 Troponin I High Sens 9.8 7.7 B-Natriuretic Peptide 172 H Total Protein 6.9 Albumin 4.0 Globulin 2.9 Albumin/Globulin Ratio 1.4 Lipase 36 Diagnostic Findings Echocardiogram 02/27/2023: Normal LV systolic function with ejection fraction of 60 to 65%. Moderate LVH. Severe aortic stenosis. Moderate mitral annular calcification and mild to moderate mitral regurgitation. Echocardiogram 02/02/2024: Normal LV systolic function with ejection fraction of 60 to 65%. Mild LVH. Severe calcific aortic stenosis. Moderate mitral annular calcification. Moderate mitral stenosis and regurgitation. Chest x-ray obtained the time admission not really acute cardiopulmonary process. ECG Additional Comments: EKG obtained the time admission revealed normal sinus rhythm with sinus arrhythmia. Forearm progression in the precordial leads without other notable findings. PG Care Time/CCT Total # of Minutes Spent Total Time Spent with Patient: Total time spent is greater than 50% in coordination of care (as documented) at patient's floor/unit and/or counseling patient: Coding Level of Care Code 75520 INT INP/OBS CARE 3/75MIN Diagnoses Chest pain, unspecified type R07.9 Chest pain type: unspecified Coronary artery disease involving [place] coronary artery of [place] heart without angina pectoris I25.10 Associated angina: without angina Coronary Disease-Associated Artery/Lesion type: [place] artery [place] vs. transplanted heart: [place] heart Severe aortic stenosis I35.0 Shortness of breath R06.02 (1) Chest pain Chest pain type: unspecified Qualified Code(s): R07.9 - Chest pain, unspecified (2) CAD (coronary artery disease) Associated angina: without angina Coronary Disease-Associated Artery/Lesion type: [place] artery [place] vs. transplanted heart: [place] heart Qualified Code(s): I25.10 - Atherosclerotic heart disease of [place] coronary artery without angina pectoris
[2024-02-10] MEDS: ACETAMINOPHEN 325 MG TAB PO PRN (15:25)
--- NOTE | 2024-02-10 15:56 | XCELERA ---
[id number]
--- NOTE | 2024-02-10 17:23 | Electrocardiogram Report ---
Test Reason : Blood Pressure : */* mmHG Vent. Rate : 72 BPM Atrial Rate : 72 BPM P-R Int : 192 ms QRS Dur : 80 ms QT Int : 408 ms P-R-T Axes : 51 -23 65 degrees QTcB Int : 446 ms Normal sinus rhythm with sinus arrhythmia Possible Left atrial enlargement Minimal voltage criteria for LVH, may be normal variant Abnormal ECG When compared with ECG of 24-Jan-2024 17:59, T wave inversion now evident in Lateral leads Confirmed by Albino Power ([id number]) on 02/10/2024 5:22:45 PM Referred By: [facility] Confirmed By: Albino Power
[2024-02-10] MEDS: ATENOLOL 25 MG TABLET PO SCH (19:57)
[2024-02-10] MEDS: ATORVASTATIN 20 MG TAB PO SCH (19:57)
[2024-02-10] MEDS: traZODone HCL 50 MG TAB PO SCH (19:57)
[2024-02-11] MEDS: LEVOTHYROXINE SODIUM 112 MCG TABLET PO SCH (06:29)
[2024-02-11 07:25] LABS: Basophils # (auto) 0.05 K/uL (0.00-0.20); Basophils % (auto) 0.6 %; Eosinophils # (auto) 0.24 K/uL (0.00-0.50); Hematocrit (blood only) 39.3 % (37.0-47.0); Hemoglobin 13.4 g/dl (12.0-16.0); Immature Granulocytes # (auto) 0.03 K/uL (0.01-0.20); Immature Granulocytes % (auto) 0.4 %; Lymphocytes # (auto) 1.88 K/uL (1.20-3.40); Lymphocytes % (auto) 23.9 %; Mean Corpuscular Hgb Conc 34.1 g/dL (32.0-36.0); Mean Corpuscular Volume 88.1 fL (80.0-100.0); Mean Platelet Volume 10.8 fL (9.4-12.4); Monocytes # (auto) 0.64 K/uL (0.11-0.59); Monocytes % (auto) 8.1 %; Neutrophils # (auto) 5.04 K/uL (1.40-6.50); Platelet Count 182 K/uL (130-400); RDW Coefficient of Variation 13.8 % (11.5-14.5); RDW Standard Deviation 44.9 fL (36.4-46.3); Red Blood Count 4.46 M/uL (4.20-5.40); White Blood Count 7.88 K/ul (4.8-10.8)
[2024-02-11 07:40] LABS: BUN Creatinine Ratio 22.7 (10-20); Calcium 9.7 mg/dl (8.6-10.3); Magnesium 2.1 mg/dl (1.7-2.4); Potassium 4.4 mmol/L (3.5-5.1)
[2024-02-11 07:55] LABS: Thyroid Stimulating Hormone 0.408 uIu/ml (0.300-4.500)
--- NOTE | 2024-02-11 08:13 | Hospitalist Progress Note ---
Date of Service February 11, 2024 Assessment & Plan (1) Chest pain: Plan: This is an 78 y/o female with hx CAD s/p CABG x 2, PCI x 2, severe aortic stenosis, HFpEF, moderate LVH, HTN, GERD, dyslipidemia, OA, hypothyroid, and depression who presented to the ED from [facility] with chest pain. Current episode of chest discomfort and shortness of breath at rest was preceded by approximately one week of progressive exertional symptoms that have gradually worsened. Initial work-up in the ED showed normal troponin x 2, mildly elevated BNP, chest x-ray without acute process. She received nitro x 2 doses with improvement but not resolution of pain. Due to her multiple cardiac risk factors, pt was referred for admission for further cardiac evaluation. She is on aspirin but not plavix at baseline. - Admitted to PCU - Trending troponin, repeated EKG - Update echo - Continue aspirin, pt is not on clopidogrel at baseline - Consulted cardiology for additional recommendations and discussed with - Plan for cardiac cath / preparation for TAVR - cath postponed as awaiting records from [place] regarding her CABG, pt wants to wait another night - if not able to get cath tmrw - will plan for DC and outpt follow up/ outpt cath scheduled (2) CAD (coronary artery disease): Plan: See plan for #1 (3) Severe aortic stenosis: Plan: Plan per last cardio note was for TAVR but pt has not been able to lie flat for the cardiac cath Update ECHO as above Cardio consult as discussed (4) (HFpEF) heart failure with preserved ejection fraction: Plan: Chronic Continue outpatient bumetanide (5) Essential hypertension: Plan: Chronic, stable Continue outpatient regimen (6) GERD (gastroesophageal reflux disease): Plan: Chronic, stable Continue daily PPI (7) Hypothyroidism: Plan: Chronic, stable Continue levothyroxine (8) Hyperlipidemia: Plan: Chronic, stable Continue statin Plan DVT prophylaxis: lovenox Admit to PCU Admission and Anticipated Discharge Date Admission Date: February 10, 2024 Subjective Pt seen in follow up of chest pain, hx of Currently sitting up in chair in NAD, overall says she is feeling better She has hx of chest pain and dyspnea on exertion Plan for cardiac cath / preparation for TAVR - discussed with cardiology and the pt in detail - cath postponed as awaiting records from [place] regarding her CABG, pt wants to wait another night - if not able to get cath tmrw - will plan for DC and outpt follow up/ outpt cath scheduled Review of Systems Review of Systems: All systems reviewed & are unremarkable except as noted in Subjective Physical Exam Physical Exam: General: awake, alert, NAD HEENT: no scleral icterus, moist oral mucosa Heart: RRR, +systolic murmur Lungs: CTA bilaterally, no W/R/R Abdomen: soft, NT, +BS Extremities: no pedal edema Skin: warm, dry, no jaundice Neurologic: awake, alert, O x 3, no confusion or dysarthria, moving all extremities, no focal deficits Results & Data Results & Data Vital Signs (Past 12 Hours) Vital Signs Temp Pulse Pulse Resp BP Pulse Ox O2 Del Method 02/11/24 07:55 36.4 C L 66 18 179/68 H 97 Room Air 02/11/24 02:30 36.3 C L 71 18 129/76 98 Room Air 02/10/24 22:45 36.4 C L 60 18 137/75 96 Room Air 02/10/24 22:42 60 Laboratory Results 02/11/24 02/11/24 02/10/24 Range/Units 06:48 01:13 18:38 WBC 7.88 (4.8-10.8) K/ul RBC 4.46 (4.20-5.40) M/uL Hgb 13.4 (12.0-16.0) g/dl Hct 39.3 (37.0-47.0) % MCV 88.1 (80.0-100.0) fL MCH 30.0 (25.0-34.0) pg MCHC 34.1 (32.0-36.0) g/dL RDW Std Deviation 44.9 (36.4-46.3) fL RDW Coeff of Vy 13.8 (11.5-14.5) % Plt Count 182 (130-400) K/uL MPV 10.8 (9.4-12.4) fL Immature Gran % (Auto) 0.4 % Neut % (Auto) 64.0 % Lymph % (Auto) 23.9 % [place] % (Auto) 8.1 % Eos % (Auto) 3.0 % Baso % (Auto) 0.6 % Neut # (Auto) 5.04 (1.40-6.50) K/uL Lymph # (Auto) 1.88 (1.20-3.40) K/uL [place] # (Auto) 0.64 H (0.11-0.59) K/uL Eos # (Auto) 0.24 (0.00-0.50) K/uL Baso # (Auto) 0.05 (0.00-0.20) K/uL Immature Gran # (Auto) 0.03 (0.01-0.20) K/uL PT (9.0-12.0) Seconds INR (0.9-1.1) Sodium 142 (136-145) mmol/L Potassium 4.4 (3.5-5.1) mmol/L Chloride 110 H (98-107) mmol/L Carbon Dioxide 25 (21-32) mmol/L Anion Gap 7 (3-11) BUN 17 (6-23) mg/dl Creatinine 0.75 (0.6-1.2) mg/dl Est Cr Clr Drug Dosing 57.0 ml/min eGFR 80.43 BUN/Creatinine Ratio 22.7 H (10-20) Glucose 89 (70-99(Fasting)) mg/dl Calcium 9.7 (8.6-10.3) mg/dl Magnesium 2.1 (1.7-2.4) mg/dl Total Bilirubin (0.2-1.0) mg/dl AST (13-39) U/L ALT (7-52) U/L Alkaline Phosphatase (34-104) U/L Troponin I High Sens 9.2 7.2 (0-14) pg/ml B-Natriuretic Peptide (0-100) pg/ml Total Protein (6.0-8.3) gm/dl Albumin (3.4-5.0) gm/dl Globulin (2.5-4.0) gm/dl Albumin/Globulin Ratio (0.9-2) Lipase (11-82) U/L TSH 0.408 (0.300-4.500) uIu/ml 02/10/24 02/10/24 02/10/24 Range/Units 11:19 09:29 09:22 WBC 7.88 (4.8-10.8) K/ul RBC 4.35 (4.20-5.40) M/uL Hgb 12.6 (12.0-16.0) g/dl Hct 38.6 (37.0-47.0) % MCV 88.7 (80.0-100.0) fL MCH 29.0 (25.0-34.0) pg MCHC 32.6 (32.0-36.0) g/dL RDW Std Deviation 45.0 (36.4-46.3) fL RDW Coeff of Vy 13.7 (11.5-14.5) % Plt Count 198 (130-400) K/uL MPV 10.6 (9.4-12.4) fL Immature Gran % (Auto) 0.3 % Neut % (Auto) 65.4 % Lymph % (Auto) 23.1 % [place] % (Auto) 7.4 % Eos % (Auto) 3.0 % Baso % (Auto) 0.8 % Neut # (Auto) 5.16 (1.40-6.50) K/uL Lymph # (Auto) 1.82 (1.20-3.40) K/uL [place]undy # (Auto) 0.58 (0.11-0.59) K/uL Eos # (Auto) 0.24 (0.00-0.50) K/uL Baso # (Auto) 0.06 (0.00-0.20) K/uL Immature Gran # (Auto) 0.02 (0.01-0.20) K/uL PT 10.5 (9.0-12.0) Seconds INR 1.0 (0.9-1.1) Sodium 141 (136-145) mmol/L Potassium 4.1 (3.5-5.1) mmol/L Chloride 110 H (98-107) mmol/L Carbon Dioxide 24 (21-32) mmol/L Anion Gap 7 (3-11) BUN 17 (6-23) mg/dl Creatinine 0.80 (0.6-1.2) mg/dl Est Cr Clr Drug Dosing 53.7 ml/min eGFR 74.44 BUN/Creatinine Ratio 21.3 H (10-20) Glucose 95 (70-99(Fasting)) mg/dl Calcium 9.4 (8.6-10.3) mg/dl Magnesium 2.0 (1.7-2.4) mg/dl Total Bilirubin 0.4 (0.2-1.0) mg/dl AST 16 (13-39) U/L ALT 12 (7-52) U/L Alkaline Phosphatase 91 (34-104) U/L Troponin I High Sens 7.7 9.8 (0-14) pg/ml B-Natriuretic Peptide 172 H (0-100) pg/ml Total Protein 6.9 (6.0-8.3) gm/dl Albumin 4.0 (3.4-5.0) gm/dl Globulin 2.9 (2.5-4.0) gm/dl Albumin/Globulin Ratio 1.4 (0.9-2) Lipase 36 (11-82) U/L TSH (0.300-4.500) uIu/ml Medications Administered Current Inpatient Medications Acetaminophen (Acetaminophen 325 Mg Tab) 650 mg PO Q4H PRN PRN Reason: Pain or Fever Stop: 03/11/24 13:39 Last Admin: 02/10/24 19:59 Dose: 650 mg Aspirin (Aspirin 81 Mg Ectab) 81 mg PO QAM CALLIE Stop: 03/12/24 08:59 Atenolol (Atenolol 25 Mg Tablet) 25 mg PO BID CALLIE Stop: 03/11/24 20:59 Last Admin: 02/10/24 19:57 Dose: 25 mg Atorvastatin Calcium (Atorvastatin 20 Mg Tab) 20 mg PO HS CALLIE Stop: 03/11/24 20:59 Last Admin: 02/10/24 19:57 Dose: 20 mg Bumetanide (Bumetanide 1 Mg Tab) 2 mg PO DAILY CALLIE Stop: 03/12/24 08:59 Duloxetine HCl (Duloxetine Hcl 30 Mg Cap) 30 mg PO QAM CALLIE Stop: 03/12/24 08:59 Enoxaparin Sodium (Enoxaparin Inj 40 Mg/0.4 Ml Syr) 40 mg SQ QAM CALLIE Stop: 03/12/24 08:59 Levothyroxine Sodium (Levothyroxine Sodium 112 Mcg Tablet) 112 mcg PO DAILYBB CALLIE Stop: 03/12/24 06:29 Last Admin: 02/11/24 06:29 Dose: 112 mcg Nitroglycerin (Nitroglycerin Sl 0.4 Mg/Tab Tab) 0.4 mg SL Q5M PRN PRN Reason: Chest Pain Stop: 03/11/24 13:39 Oxybutynin Chloride (Oxybutynin Chloride Xl 5 Mg Tabcr) 10 mg PO QAM CALLIE Stop: 03/12/24 08:59 Pantoprazole Sodium (Pantoprazole 40 Mg Tab) 40 mg PO QAM CALLIE Stop: 03/12/24 08:59 Polyethylene Glycol (Polyethylene (Miralax) 17 Gm Pack) 17 gm PO DAILY PRN PRN Reason: Constipation Stop: 03/11/24 13:39 Potassium Chloride (Potassium Chloride Crtab 20 Meq Tabcr) 20 meq PO QAM CALLIE Stop: 03/12/24 08:59 Trazodone HCl (Trazodone Hcl 50 Mg Tab) 150 mg PO HS CALLIE Stop: 03/11/24 20:59 Last Admin: 02/10/24 19:57 Dose: 150 mg (1) Chest pain Chest pain type: unspecified Qualified Code(s): R07.9 - Chest pain, unspecified (2) CAD (coronary artery disease) Associated angina: without angina Coronary Disease-Associated Artery/Lesion type: [place] artery [place] vs. transplanted heart: [place] heart Qualified Code(s): I25.10 - Atherosclerotic heart disease of [place] coronary artery without angina pectoris (4) (HFpEF) heart failure with preserved ejection fraction Heart failure chronicity: acute on chronic Qualified Code(s): I50.33 - Acute on chronic diastolic (congestive) heart failure (6) GERD (gastroesophageal reflux disease) Esophagitis presence: esophagitis presence not specified Qualified Code(s): K21.9 - Gastro-esophageal reflux disease without esophagitis (7) Hypothyroidism Hypothyroidism type: unspecified Qualified Code(s): E03.9 - Hypothyroidism, unspecified (8) Hyperlipidemia Hyperlipidemia type: unspecified Qualified Code(s): E78.5 - Hyperlipidemia, unspecified
[2024-02-11] MEDS: OXYBUTYNIN CHLORIDE XL 5 MG TABCR PO SCH (08:21)
[2024-02-11] MEDS: DULoxetine HCL 30 MG CAP PO SCH (08:22)
[2024-02-11] MEDS: PANTOprazole 40 MG TAB PO SCH (08:22)
[2024-02-11] MEDS: POTASSIUM CHLORIDE CRTAB 20 MEQ TABCR PO SCH (08:22)
[2024-02-11] MEDS: ASPIRIN 81 MG ECTAB PO SCH (08:22)
[2024-02-11] MEDS ORDERED: ENOXAPARIN INJ 40 MG/0.4 ML SYR SQ SCH (09:00)
[2024-02-11] MEDS: BUMETANIDE 1 MG TAB PO SCH (11:07)
--- NOTE | 2024-02-11 11:19 | Electrocardiogram Report ---
Test Reason : Blood Pressure : */* mmHG Vent. Rate : 50 BPM Atrial Rate : 50 BPM P-R Int : 188 ms QRS Dur : 92 ms QT Int : 472 ms P-R-T Axes : 59 -8 51 degrees QTcB Int : 430 ms Sinus bradycardia Possible Left atrial enlargement Abnormal ECG When compared with ECG of 10-Feb-2024 09:19, Nonspecific T wave abnormality now evident in Inferior leads Confirmed by Albino Power ([id number] on 02/11/2024 11:19:00 AM Referred By: [facility] Confirmed By: Albino Power
--- NOTE | 2024-02-11 16:33 | Cardiology Progress Note ---
Date of Service February 11, 2024 Assessment & Plan (1) Chest pain: (2) CAD (coronary artery disease): (3) Severe aortic stenosis: (4) Shortness of breath: Plan 1. Chest pain: Most of her chest pain appears to be noncardiac. She continues to have symptoms of chest pain even at rest. Extended in duration without elevation in biomarkers. Not related to aortic stenosis. 2. Dyspnea: She seems very comfortable today. I have asked to see how she responds to ambulation. 3. Coronary disease: She has an extensive history of coronary disease with postsurgical and percutaneous revascularization. As noted above her current symptoms do not appear to be related to ischemic heart disease. At this point she is simply continue on her aspirin, atenolol and atorvastatin. 4. Aortic stenosis: Noted to be severe. It would seem reasonable to begin an evaluation for possible valve replacement. Several factors are of concern 1 being her inability to lay flat. I think she would be able to tolerate coronary angiography although if this were performed via the femoral arterial approach it could be quite difficult. Apparently she has had attempts at catheterization through the right arm previously but this arm cannot be laid straight and would not facilitate passage of a catheter. She is also had extensive surgery on the left shoulder and diminished pulse in the left wrist. Again, femoral access could be used but this may pose a problem afterwards if she needs to lay flat for an extended period. Additionally, we do not know her coronary anatomy. We are still trying to obtain the records of her bypass surgery performed in 2017. She believes it was performed in [place] at [facility]. Will make some inquiries. At this point it is unclear when angiography could be performed. I would not perform the procedure unless we had her operative report from 2017. This can certainly be addressed in the outpatient setting if she is otherwise ready for discharge. 5. Mitral valve disease: She also has an element of mitral valve disease both moderate insufficiency and stenosis. Not likely to be causing symptoms at this point. Admission and Anticipated Discharge Date Admission Date: February 10, 2024 Subjective This morning patient clinically feeling well. Stated that her breathing was improved. She has not been very ambulatory. No sense of palpitation. Continue chest pain. Review of Systems Review of Systems: Per HPI Physical Exam Physical Exam: She is alert and oriented x3. Mood affect appear normal. She answered all qu estions appropriately. HEENT: Sclerae are anicteric. Pupils are equal and reactive to light and accommodation. Extraocular movements were intact. Neuro: Cranial nerves intact Lungs: Lungs are clear to auscultation bilaterally. There are no rales wheezes or rhonchi. She has normal respiratory effort without use of accessory muscles. There is normal pulmonary excursion. Cardiac: The rhythm was regular. S1 and S2 were normal. Fairly soft crescendo systolic murmur. The PMI was not markedly displaced on palpation. Extremities: Patient has bilateral radial pulses that are equal in intensity. There is no evidence cyanosis or clubbing. There was no evidence of significant peripheral edema bilaterally. Skin: There are no rashes noted on examination today. Results & Data Vital Signs (Past 12 Hours) Vital Signs Temp Pulse Pulse Resp BP Pulse Ox O2 Del Method 02/11/24 15:44 36.7 C 67 20 115/73 96 Room Air 02/11/24 14:04 72 02/11/24 11:11 36.6 C 80 18 178/81 H 97 Room Air 02/11/24 08:00 53 L 02/11/24 07:55 36.4 C L 66 18 179/68 H 97 Room Air Laboratory Results Abnormal Lab Results 02/10/24 02/11/24 02/11/24 18:38 01:13 06:48 WBC 7.88 RBC 4.46 Hgb 13.4 Hct 39.3 MCV 88.1 MCH 30.0 MCHC 34.1 RDW Std Deviation 44.9 RDW Coeff of Vy 13.8 Plt Count 182 MPV 10.8 Immature Gran % (Auto) 0.4 Neut % (Auto) 64.0 Lymph % (Auto) 23.9 [place] % (Auto) 8.1 Eos % (Auto) 3.0 Baso % (Auto) 0.6 Neut # (Auto) 5.04 Lymph # (Auto) 1.88 [place] # (Auto) 0.64 H Eos # (Auto) 0.24 Baso # (Auto) 0.05 Immature Gran # (Auto) 0.03 Sodium 142 Potassium 4.4 Chloride 110 H Carbon Dioxide 25 Anion Gap 7 BUN 17 Creatinine 0.75 Est Cr Clr Drug Dosing 57.0 eGFR 80.43 BUN/Creatinine Ratio 22.7 H Glucose 89 Calcium 9.7 Magnesium 2.1 Troponin I High Sens 7.2 9.2 TSH 0.408 PG Care Time/CCT Total # of Minutes Spent Total Time Spent with Patient: Total time spent is greater than 50% in coordination of care (as documented) at patient's floor/unit and/or counseling patient: Coding Level of Care Code 99360 SUB INP/OBS CARE 2/35MIN Diagnoses Chest pain, unspecified type R07.9 Chest pain type: unspecified Coronary artery disease involving [place] coronary artery of [place] heart without angina pectoris I25.10 Coronary Disease-Associated Artery/Lesion type: [place] artery [place] vs. transplanted heart: [place] heart Associated angina: without angina Severe aortic stenosis I35.0 Shortness of breath R06.02 (1) Chest pain Chest pain type: unspecified Qualified Code(s): R07.9 - Chest pain, unspecified (2) CAD (coronary artery disease) Coronary Disease-Associated Artery/Lesion type: [place] artery [place] vs. transplanted heart: [place] heart Associated angina: without angina Qualified Code(s): I25.10 - Atherosclerotic heart disease of [place] coronary artery without angina pectoris
[2024-02-12 07:16] VITALS: RESP 18
[2024-02-12 07:20] LABS: Hematocrit (blood only) 38.4 % (37.0-47.0); Hemoglobin 12.8 g/dl (12.0-16.0); Mean Corpuscular Hemoglobin 29.4 pg (25.0-34.0); Mean Corpuscular Hgb Conc 33.3 g/dL (32.0-36.0); Mean Corpuscular Volume 88.1 fL (80.0-100.0); Mean Platelet Volume 11.5 fL (9.4-12.4); Platelet Count 178 K/uL (130-400); RDW Coefficient of Variation 13.7 % (11.5-14.5); RDW Standard Deviation 44.3 fL (36.4-46.3); Red Blood Count 4.36 M/uL (4.20-5.40); White Blood Count 7.55 K/ul (4.8-10.8)
[2024-02-12 07:40] LABS: BUN Creatinine Ratio 24.2 (10-20); Calcium 9.2 mg/dl (8.6-10.3); Creatinine Clr Calc Pharmacy 45.5 ml/min; Phosphorus 3.2 mg/dl (2.5-4.9); Potassium 4.2 mmol/L (3.5-5.1)
[2024-02-12 11:25] VITALS: BP 125/78; TEMP 97.3; O2SAT 94
--- NOTE | 2024-02-12 11:52 | Electrocardiogram Report ---
Test Reason : Blood Pressure : */* mmHG Vent. Rate : 76 BPM Atrial Rate : 76 BPM P-R Int : 188 ms QRS Dur : 92 ms QT Int : 436 ms P-R-T Axes : 55 -13 72 degrees QTcB Int : 490 ms Normal sinus rhythm Possible Left atrial enlargement Nonspecific T wave abnormality Prolonged QT Abnormal ECG When compared with ECG of 11-Feb-2024 05:14, Vent. rate has increased by 26 bpm Nonspecific T wave abnormality no longer evident in Inferior leads QT has lengthened Confirmed by Albino Power ([id number]) on 02/12/2024 11:52:12 AM Referred By: [facility] Confirmed By: Albino Power
--- NOTE | 2024-02-12 13:59 | Cardiology Progress Note ---
Date of Service February 12, 2024 Assessment & Plan (1) Chest pain: (2) CAD (coronary artery disease): (3) Severe aortic stenosis: (4) Shortness of breath: Plan 1. Chest pain: Most of her chest pain appears to be noncardiac. She continues to have symptoms of chest pain even at rest. Extended in duration without elevation in biomarkers. Not related to aortic stenosis. 2. Dyspnea: She seems very comfortable today. Some dyspnea with ambulation. Certainly possible this is related to her aortic stenosis. However she is also quite deconditioned and may have dyspnea for other reasons as well. 3. Coronary disease: She has an extensive history of coronary disease with postsurgical and percutaneous revascularization. As noted above her current symptoms do not appear to be related to ischemic heart disease. At this point she is simply continue on her aspirin, atenolol and atorvastatin. 4. Aortic stenosis: Noted to be severe. Will refer her for an evaluation. Possible TAVR candidate. She does have an element of mitral valve disease as well. This can be accomplished in the outpatient setting. 5. Mitral valve disease: She also has an element of mitral valve disease both moderate insufficiency and stenosis. Not likely to be causing symptoms at this point. Admission and Anticipated Discharge Date Admission Date: February 10, 2024 Subjective This afternoon the patient reported continued chest pain. This precordial in nature. Improved with lying down. Worse with sitting up or activity. She did report ambulating earlier today. Some dyspnea. Some chest pain. She reports sleeping somewhat upright last night and at home sleeps nearly entirely upright in a recliner with her feet elevated. Review of Systems Review of Systems: Per HPI Physical Exam Physical Exam: She is alert and oriented x3. Mood affect appear normal. She answered all questions appropriately. HEENT: Sclerae are anicteric. Pupils are equal and reactive to light and accommodation. Extraocular movements were intact. Neuro: Cranial nerves intact Lungs: Lungs are clear in the apices. Some crackles at the bases bilaterally. No expiratory wheezing. She has normal respiratory effort without use of accessory muscles. There is normal pulmonary excursion. Cardiac: The rhythm was regular. S1 and S2 were normal. Fairly soft crescendo systolic murmur. The PMI was not markedly displaced on palpation. Extremities: Patient has bilateral radial pulses that are equal in intensity. There is no evidence cyanosis or clubbing. There was no evidence of significant peripheral edema bilaterally. Skin: There are no rashes noted on examination today. Results & Data Vital Signs (Past 12 Hours) Vital Signs Temp Pulse Pulse Resp BP Pulse Ox O2 Del Method 02/12/24 11:24 36.3 C L 71 18 125/78 94 Room Air 02/12/24 08:00 74 02/12/24 07:15 36.6 C 79 18 119/73 96 Room Air 02/12/24 04:20 36.4 C L 76 16 163/86 H 95 Room Air Laboratory Results Abnormal Lab Results 02/12/24 06:36 WBC 7.55 RBC 4.36 Hgb 12.8 Hct 38.4 MCV 88.1 MCH 29.4 MCHC 33.3 RDW Std Deviation 44.3 RDW Coeff of Vy 13.7 Plt Count 178 MPV 11.5 Sodium 140 Potassium 4.2 Chloride 108 H Carbon Dioxide 25 Anion Gap 7 BUN 22 Creatinine 0.91 Est Cr Clr Drug Dosing 45.5 eGFR 63.78 BUN/Creatinine Ratio 24.2 H Glucose 93 Calcium 9.2 Phosphorus 3.2 Magnesium 2.0 PG Care Time/CCT Total # of Minutes Spent Total Time Spent with Patient: Total time spent is greater than 50% in coordination of care (as documented) at patient's floor/unit and/or counseling patient: Coding Level of Care Code 94318 SUB INP/OBS CARE 235MIN Diagnoses Chest pain, unspecified type R07.9 Chest pain type: unspecified Coronary artery disease involving [place] coronary artery of [place] heart without angina pectoris I25.10 Coronary Disease-Associated Artery/Lesion type: [place] artery [place] vs. transplanted heart: [place] heart Associated angina: without angina Severe aortic stenosis I35.0 Shortness of breath R06.02 (1) Chest pain Chest pain type: unspecified Qualified Code(s): R07.9 - Chest pain, unspecified (2) CAD (coronary artery disease) Coronary Disease-Associated Artery/Lesion type: [place] artery [place] vs. transplanted heart: [place] heart Associated angina: without angina Qualified Code(s): I25.10 - Atherosclerotic heart disease of [place] coronary artery without angina pectoris
[2024-02-12 14:43] VITALS: PULSE 71
--- NOTE | 2024-02-13 00:06 | Discharge Summary ---
Discharge Summary Date of Service February 12, 2024 Principal Dx & Hospital Course #1 = Principal Diagnosis Admission HPI Per Admitting Provider This is an 78 y/o female with hx CAD s/p CABG x 2, PCI x 2, severe aortic stenosis, HFpEF, moderate LVH, HTN, GERD, dyslipidemia, OA, hypothyroid, and depression who presented to the ED today from [facility] with chest pain. She reports that this morning, around 6 am, she developed chest discomfort and pressure in the substernal region with associated shortness of breath. She reports about one week of dyspnea on exertion with occasional similar chest discomfort. This FERNÁNDEZ has been worsening in severity, and she now finds that the she has to stop and rest multiple times just walking from her room to the dining room at the facility, which is new for her. Today was the first time she had symptoms at rest. She notes sleeping in a chair chronically since she has difficulty lying flat. EMS was called and gave patient aspirin and a dose of nitro pre-hospital with improvement but not resolution of pain. In the ED, pt received another dose of nitro with improvement though still not resolution of the discomfort. She now notes associated upped back discomfort as well. She denies palpitations, syncope, DELA CRUZ, N/V. Her breathing has improved. She denies significant peripheral edema, recent illness, changes in bowel or bladder function. She follows with [facility] cardiology with last visit in July 2023 at which time her diuretics were changed from furosemide to bumetanide as the furosemide no longer seemed to be working. She has known severe aortic stenosis and was being considered for a TAVR once her HF was improved (specifically needing to be able to lie flat for the pre-valve cardia cath, but patient reports nothing has been discussed regarding the procedure since her last appointment. She reports being compliant with her medications. ECHO - EF 60-65%, normal LV wall motion, moderate concentric LVH, grade I diastolic dysfunction, severe valvular aortic stenosis, moderate mitral annular calcification, mild to moderate mitral regurgitation. Updated Medication List Medication Instructions Recorded Confirmed Type levothyroxine 137 mcg tablet 112 mcg PO QAM 12/06/20 02/10/24 History (Synthroid) trazodone 150 mg tablet 150 mg PO HS 12/06/20 02/10/24 History atenolol 25 mg tablet 25 mg PO BID 01/17/21 02/10/24 History acetaminophen 325 mg capsule 650 mg PO Q4H PRN mild pain/fever 02/20/23 02/10/24 History atorvastatin 20 mg tablet 20 mg PO HS #30 tabs 02/28/23 02/10/24 Rx duloxetine 30 mg capsule,delayed 30 mg PO QAM 08/01/23 02/10/24 History release omeprazole 20 mg capsule,delayed 20 mg PO QAM 01/24/24 02/10/24 History release oxybutynin chloride 10 mg 10 mg PO QAM 01/24/24 02/10/24 History tablet,extended release 24 hr potassium chloride 20 mEq 20 meq PO QAM 01/24/24 02/10/24 History tablet,extended release(part/cryst) aspirin 81 mg tablet,delayed 81 mg PO QAM 02/10/24 02/10/24 History release (Ecotrin Low Strength) bumetanide 1 mg tablet 3 mg PO UD 02/10/24 02/10/24 History lidocaine 5 % topical patch 1 patch topical DAILY PRN Pain 02/10/24 02/10/24 History polyethylene glycol 3350 17 17 g PO DAILY PRN Constipation 02/10/24 02/10/24 History gram/dose oral powder (Miralax) Hospital Stay Data Consultations 02/10/24 11:22 ED Decision to Admit Stat 02/10/24 13:40 Consult Cardiology Routine Discharge Instructions Given to Patient (Per Discharging Provider) Claudia, You are seen by the fishery division chief for your chest pain. There is concerned that your aortic valve might need to be replaced as well as the possibility of you needing to have a heart catheterization completed. Your fishery division chief recommends outpatient follow-up for this at the [facility] after further discussion with you. They recommend that you continue the aspirin, atenolol, and your home atorvastatin. Please keep close follow-up with your fishery division chief after discharge. Please also keep close follow up with your primary care provider after discharge. Please do not hesitate to come back to the emergency room if your symptoms wo rsen or return. It was a pleasure taking care of you while you were here.
== END 2024-02-12 15:22 | disposition home or self-care (01) | DRG 313 ==
LOC: ED 09:14 → 2S 12:00 → SUATTDRO 12:00 → 2S 12:52

== ENCOUNTER 2024-04-22 17:25 | Inpatient (IN) ==
--- NOTE | 2024-04-22 17:45 | Emergency Department Note ---
Impression & Plan Chest pain, (HFpEF) heart failure with preserved ejection fraction, Hypervolemia, Elevated troponin ED Provider Note NAME: SANTOS TOLEDO AGE: 78 SEX: F : 1945 ARRIVES VIA: Ambulance INFORMANT: Patient ED PROVIDER(S): Erasmo Morgan MD CHIEF COMPLAINT: Chest pain PLAN: Disposition: Admit MEDICAL DECISION MAKING: The patient is a pleasant 78-year-old woman with a past medical history of LVH, CHF with preserved EF, CAD, history of CABG x 2, severe aortic stenosis, spinal stenosis, hypertension, hyperlipidemia, GERD, hypothyroidism who presents to emergency department via EMS from her personal fdc at [facility] for evaluation of chest pain that began this afternoon after eating lunch and she reports has been intermittent and feels like a pressure. She reports increased belching but does not feel this is her reflux. She reports having worsening pain after ambulate to the dining hussein and felt short of breath. She was given 324 mg of aspirin by EMS. She reports mild residual pressure at this time. She denies weighing herself daily to monitor use of her Bumex but reports her legs have felt more swollen recently. She denies any fevers. She reports mild cough. She denies any GI or symptoms. On evaluation the patient is no distress, afebrile with heart in the 90s duarte otherwise stable. She appears hypervolemic with 1+ bilateral lower extremity edema. Patient's weight today is 88.5 kg which appears to be at least 6kg up from patient's baseline. EKG without overt acute ischemia. CXR negative for acute cardiopulmonary process per my personal preliminary review/interpretation. WBC, Hbg and platelets within normal limits. Chemistry without metabolic acidosis. Electrolytes without significant abnormality. Initial high sensitivity troponin was 209 with delta 2-hour HS troponin 216, nonspecific and suspected to be related to the patient's hypervolemia. Respiratory BioFire was negative. Given the patient's elevated troponin in the setting of her chest pain and hypervolemia patient was referred to the hospital service for admission for further management. Treatment initiated with IV Bumex. Case was discussed with Dr. Vickers, [facility] hospitalist, who will evaluate the patient for admission. Further management per admitting team. Triage Nursing notes reviewed and agree them. Prior/external medical records reviewed Vital Signs: reviewed Differential diagnosis: Cardiac ischemia, aortic dissection, pulmonary embolism, pneumothorax, pneumonia, pericarditis, myocarditis, esophageal rupture, GERD, cholecystitis, pancreatitis, musculoskeletal, as well as other pathologies. ER treatment provided: See below. Diagnostics interpreted by me: ECG: Normal sinus rhythm, 94 bpm, no ectopy, no overt ST elevation or depression, QTc 497, QRS 80. Cardiac Monitoring: An order for continuous cardiac monitoring was placed and demonstrated Normal sinus rhythm, 94 bpm, no ectopy. Laboratory studies: See below Imaging studies: See below Consultation(s): Case was discussed with Dr. Vickers, [facility] hospitalist, who will evaluate the patient for admission. HPI: The patient is a pleasant 78-year-old woman with a past medical history of LVH, CHF with preserved EF, CAD, history of CABG x 2, severe aortic stenosis, spinal stenosis, hypertension, hyperlipidemia, GERD, hypothyroidism who presents to emergency department via EMS from her personal fdc at [facility] for evaluation of chest pain that began this afternoon after eating lunch and she reports has been intermittent and feels like a pressure. She reports increased belching but does not feel this is her reflux. She reports having worsening pain after ambulate to the dining hussein and felt short of breath. She was given 324 mg of aspirin by EMS. She reports mild residual pressure at this time. She denies weighing herself daily to monitor use of her Bumex but reports her legs have felt more swollen recently. She denies any fevers. She reports mild cough. She denies any GI or symptoms. ROS: See above HPI for pertinent positives & negatives. A total of 10 systems reviewed and were otherwise negative. VITALS:See Below PHYSICAL EXAMINATION: GENERAL: Awake, alert, in no distress, BMI 37.9. HENT: Normocephalic, atraumatic. Oropharynx unremarkable. EYES: Normal conjunctiva. Sclera non-icteric. NECK: Supple. No nuchal rigidity. FROM. No JVD. RESPIRATORY: Clear to auscultation. CARDIAC: Regular rate, normal rhythm. 3/6 systolic murmur. Extremities warm and well perfused. Pulses equal. ABDOMEN: Soft, non-distended. No tenderness to palpation. No rebound or guarding. No masses. MUSCULOSKELETAL: Chest examination reveals no tenderness. The back is symmetrical on inspection without obvious abnormality. There is no CVA tenderness to palpation. No joint edema. LOWER EXTREMITIES: Calves are equal size bilaterally and non-tender. 1+ BLE pitting edema. No discoloration. NEURO: Normal sensorium. No sensory or motor deficits noted. SKIN: No rash or jaundice noted. Erasmo Morgan MD Past Med/Surg History Problem List (Updated 04/23/24 @ 19:16 by Erasmo Morgan MD) Exertional angina Demand ischemia Acute CHF Elevated troponin (Acute) Hypervolemia (Acute) Chest pain (Acute) Atypical chest pain Stented coronary artery LVH (left ventricular hypertrophy) Rotator cuff tear arthropathy of right shoulder (HFpEF) heart failure with preserved ejection fraction (Acute) S/P CABG x 2 (Acute) Ambulatory dysfunction CAD (coronary artery disease) Severe aortic stenosis Right shoulder pain Arm pain (Acute) Chest pain (Acute) Antiplatelet or antithrombotic long-term use Neurogenic claudication Lumbar spinal stenosis Chronic pain syndrome (Acute) Atherosclerotic heart disease of [place] coronary artery without angina pectoris Hypothyroidism Hyperlipidemia GERD (gastroesophageal reflux disease) Essential hypertension Weakness generalized (Acute) Medical History CHF (congestive heart failure) 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 Encephalopathy Surgical History H/O: section Hx of tonsillectomy History of knee replacement History of hip replacement H/O spinal fusion Family History Father Prostate cancer Mother Hypertension CHF (congestive heart failure) Brother Liver cancer Colon cancer Brother History of kidney cancer Diabetes CHF (congestive heart failure) Social History Smoking Status: Never smoker Hx Alcohol Use: Yes Alcohol type: wine Alcohol Intake Frequency: Monthly or Less Hx Substance Use: No Preferred Language: Kitt[place] Communication Ability: Effective Sustainability Purchasing Agent Required: No Beliefs That Will Affect Care: None Current Living Situation: Personal Care Facility Other Information That Helps Us Care for You: No Feels Safe at Home: Yes Safety Concerns: Feels Safe At This Time Assistive Devices: Walker Allergies Allergies Allergy/AdvReac Type Severity Reaction Status Date / Time aripiprazole Allergy Unknown UNKNOWN Unverified 04/12/24 12:28 baclofen Allergy Unknown UNKNOWN Unverified 02/27/24 10:31 diazepam Allergy Unknown UNKNOWN Unverified 02/27/24 10:31 ketorolac Allergy Unknown UNKNOWN Unverified 02/27/24 10:31 oxaprozin Allergy Unknown UNKNOWN Unverified 02/27/24 10:31 Home Meds Home Medications Medication Instructions Recorded Confirmed aspirin 81 mg tablet,delayed 81 mg PO DAILY 04/22/24 04/22/24 release atenolol 25 mg tablet 25 mg PO BID 04/22/24 04/22/24 atorvastatin 20 mg tablet 20 mg PO DAILY 04/22/24 04/22/24 bumetanide 1 mg tablet 3 mg PO DAILY 04/22/24 04/22/24 duloxetine 30 mg capsule,delayed 30 mg PO DAILY 04/22/24 04/22/24 release levothyroxine 137 mcg tablet 137 mcg PO DAILY 04/22/24 04/22/24 lidocaine 5 % topical patch 1 patch topical DAILY PRN Pain 04/22/24 04/22/24 omeprazole 20 mg capsule,delayed 20 mg PO DAILY 04/22/24 04/22/24 release oxybutynin chloride 10 mg 10 mg PO DAILY 04/22/24 04/22/24 tablet,extended release 24 hr polyethylene glycol 3350 17 gram 17 g PO DAILY PRN Constipation 04/22/24 04/22/24 oral powder packet (Miralax) potassium chloride 20 mEq 20 meq PO DAILY 04/22/24 04/22/24 tablet,extended release trazodone 150 mg tablet 150 mg PO HS 04/22/24 04/22/24 Results & Data (ED) Vital Signs Vital Signs - 24 hr 04/22/24 19:20 04/22/24 20:39 Pulse Rate [Apical] 93 H 94 H Respiratory Rate 18 Blood Pressure [Right Arm] 142/85 H 157/90 H Blood Pressure Mean [Right Arm] 104 112 Blood Pressure Position [Right Arm] Semi-fowlers Oxygen Delivery Method Room Air Laboratory Data Attestation: I reviewed the patient's lab results. 04/23/24 05:25 04/23/24 05:25 Lab Results 04/22/24 04/22/24 04/22/24 Range/Units 17:44 18:40 20:17 WBC 10.65 (4.8-10.8) K/ul RBC 4.14 L (4.20-5.40) M/uL Hgb 12.1 (12.0-16.0) g/dl Hct 35.9 L (37.0-47.0) % MCV 86.7 (80.0-100.0) fL MCH 29.2 (25.0-34.0) pg MCHC 33.7 (32.0-36.0) g/dL RDW Std Deviation 43.0 (36.4-46.3) fL RDW Coeff of Vy 14.0 (11.5-14.5) % Plt Count 179 (130-400) K/uL MPV 10.5 (9.4-12.4) fL Immature Gran % (Auto) 0.4 % Neut % (Auto) 74.2 % Lymph % (Auto) 17.2 % Parmer % (Auto) 6.6 % Eos % (Auto) 1.2 % Baso % (Auto) 0.4 % Neut # (Auto) 7.91 H (1.40-6.50) K/uL Lymph # (Auto) 1.83 (1.20-3.40) K/uL Parmer # (Auto) 0.70 H (0.11-0.59) K/uL Eos # (Auto) 0.13 (0.00-0.50) K/uL Baso # (Auto) 0.04 (0.00-0.20) K/uL Immature Gran # (Auto) 0.04 (0.01-0.20) K/uL PT 10.0 (9.0-12.0) Seconds INR 0.9 (0.9-1.1) Sodium 140 (136-145) mmol/L Potassium 4.0 (3.5-5.1) mmol/L Chloride 110 H (98-107) mmol/L Carbon Dioxide 23 (21-32) mmol/L Anion Gap 7 (3-11) BUN 17 (6-23) mg/dl Creatinine 0.83 (0.6-1.2) mg/dl Est Cr Clr Drug Dosing 52.3 ml/min eGFR 71.22 BUN/Creatinine Ratio 20.5 H (10-20) Glucose 93 (70-99(Fasting)) mg/dl Calcium 9.4 (8.6-10.3) mg/dl Phosphorus 3.2 (2.5-4.9) mg/dl Magnesium 1.9 (1.7-2.4) mg/dl Total Bilirubin 0.3 (0.2-1.0) mg/dl AST 17 (13-39) U/L ALT 11 (7-52) U/L Alkaline Phosphatase 84 (34-104) U/L Troponin I High Sens 209.6 H* 216.1 H* (0-14) pg/ml B-Natriuretic Peptide 196 H (0-100) pg/ml Total Protein 6.7 (6.0-8.3) gm/dl Albumin 3.8 (3.4-5.0) gm/dl Globulin 2.9 (2.5-4.0) gm/dl Albumin/Globulin Ratio 1.3 (0.9-2) Lipase 82 (11-82) U/L Adenovirus (PCR) Not Detected (NotDetected) B. pertussis DNA (PCR) Not Detected (NotDetected) B.parapertussis DNA PCR Not Detected (NotDetected) C. pneumoniae DNA (PCR) Not Detected (NotDetected) Coronavirus OC43 (PCR) Not Detected (NotDetected) Coronavirus HKU1 (PCR) Not Detected (NotDetected) Coronavirus 229E (PCR) Not Detected (NotDetected) SARS-CoV-2 (PCR) Not Detected (NotDetected) Coronavirus NL63 (PCR) Not Detected (NotDetected) Human Metapneumovir PCR Not Detected (NotDetected) Influenza Type A (PCR) Not Detected (NotDetected) Influenza Type B (PCR) Not Detected (NotDetected) M. pneumoniae (PCR) Not Detected (NotDetected) Parainfluenza 1 (PCR) Not Detected (NotDetected) Parainfluenza 2 (PCR) Not Detected (NotDetected) Parainfluenza 3 (PCR) Not Detected (NotDetected) Parainfluenza 4 (PCR) Not Detected (NotDetected) RSV (PCR) Not Detected (NotDetected) Entero/Rhino (PCR) Not Detected (NotDetected) Administered Medications Acetaminophen (Acetaminophen 325 Mg Tab) 650 mg PO Q4H PRN PRN Reason: Pain or Fever Stop: 05/22/24 23:04 Last Admin: 04/23/24 10:36 Dose: 650 mg Documented By: WILY Aspirin (Aspirin 81 Mg Ectab) 81 mg PO DAILY [facility] Stop: 05/23/24 08:59 Last Admin: 04/23/24 08:50 Dose: 81 mg Documented By: WILY Atenolol (Atenolol 25 Mg Tablet) 25 mg PO BID [facility] Stop: 05/22/24 23:04 Last Admin: 04/23/24 08:50 Dose: 25 mg Documented By: Admin: 04/23/24 00:28 Dose: 25 mg Documented By: ADRI Atorvastatin Calcium (Atorvastatin 20 Mg Tab) 20 mg PO DAILY [facility] Stop: 05/23/24 08:59 Last Admin: 04/23/24 08:50 Dose: 20 mg Documented By: WILY Clotrimazole (Clotrimazole 1% Cr 15 Gm Tube) 1 appln EXT BID [facility] Stop: 05/23/24 11:29 Last Admin: 04/23/24 13:01 Dose: 1 appln Documented By: WILY Duloxetine HCl (Duloxetine Hcl 30 Mg Cap) 30 mg PO DAILY [facility] Stop: 05/23/24 08:59 Last Admin: 04/23/24 08:50 Dose: 30 mg Documented By: WILY Enoxaparin Sodium (Enoxaparin Inj 40 Mg/0.4 Ml Syr) 40 mg SQ Q24H [facility] Stop: 05/22/24 23:04 Last Admin: 04/23/24 00:28 Dose: 40 mg Documented By: ADRI Levothyroxine Sodium (Levothyroxine Sodium 137 Mcg Tablet) 137 mcg PO DAILYBB [facility] Stop: 05/23/24 06:29 Last Admin: 04/23/24 06:44 Dose: 137 mcg Documented By: JED Miscellaneous (Remove Lidoderm Patch) 1 each N/A DAILY@2100 [facility] Stop: 05/22/24 23:04 Last Admin: 04/23/24 00:28 Dose: 1 each Documented By: ADRI Oxybutynin Chloride (Oxybutynin Chloride Xl 5 Mg Tabcr) 10 mg PO DAILY [facility] Stop: 05/23/24 08:59 Last Admin: 04/23/24 08:50 Dose: 10 mg Documented By: WILY Pantoprazole Sodium (Pantoprazole 40 Mg Tab) 40 mg PO DAILY [facility] Stop: 05/23/24 08:59 Last Admin: 04/23/24 08:50 Dose: 40 mg Documented By: WILY Potassium Chloride (Potassium Chloride Crtab 20 Meq Tabcr) 20 meq PO DAILY [facility] Stop: 05/23/24 08:59 Last Admin: 04/23/24 08:52 Dose: 20 meq Documented By: WILY Trazodone HCl (Trazodone Hcl 50 Mg Tab) 150 mg PO HS [facility] Stop: 05/22/24 23:04 Last Admin: 04/23/24 00:27 Dose: 150 mg Documented By: ADRI Discontinued Medications Bumetanide 4 mg/ Syringe 16 mls @ 4 mls/min IV ONE ONE Stop: 04/22/24 19:27 Last Admin: 04/22/24 20:39 Dose: 4 mls/min Documented By: GWEN Bumetanide 4 mg/ Syringe 16 mls @ 4 mls/min IV DAILY [facility] Stop: 05/23/24 08:59 Last Admin: 04/23/24 08:50 Dose: 4 mls/min Documented By: WILY Perflutren Lipid Microsphere (Perflutren Lipid Microsphere (Definity)) 2 ml IV ONCE ONE Stop: 04/23/24 08:49 Last Admin: 04/23/24 08:48 Dose: 2 ml Documented By: WILY Imaging Data Radiologist's Impression: Chest X-Ray 04/22/24 17:44 Chest radiograph, one view History: Chest pain Comparison: 04/12/2024 Findings: Single AP view of the chest performed. No focal consolidation or pleural effusion. No pneumothorax. The cardiomediastinal silhouette is within normal limits. CABG changes. Normal pulmonary vascularity. No evidence for lymphadenopathy. No visualized bony or soft tissue abnormality. Median sternotomy wires in place. Chronic deformity of the left shoulder. Impression: No acute process Electronically signed by Albino Barker 04-22-2024 6:11 PM Discharge Plan Visit Data Chief Complaint: Cardiac Assessment Stated Complaint: CHEST PAIN ED Provider: Erasmo Morgan Discharge Problem: Chest pain, (HFpEF) heart failure with preserved ejection fraction, Hypervolemia, Elevated troponin Patient Disposition: Admitted As Inpatient Discharge Instructions Interventions: ED Discharge Assessment Last Done: 04/22/24 22:16 Discharge Problem: Chest pain Qualifiers: Chest pain type: unspecified Qualified Code(s): R07.9 - Chest pain, unspecified (HFpEF) heart failure with preserved ejection fraction Qualifiers: Heart failure chronicity: acute on chronic Qualified Code(s): I50.33 - Acute on chronic diastolic (congestive) heart failure Hypervolemia Qualifiers: Hypervolemia type: unspecified Qualified Code(s): E87.70 - Fluid overload, unspecified
[2024-04-22 18:07] LABS: Basophils # (auto) 0.04 K/uL (0.00-0.20); Basophils % (auto) 0.4 %; Eosinophils # (auto) 0.13 K/uL (0.00-0.50); Eosinophils % (auto) 1.2 %; Hematocrit (blood only) 35.9 % (37.0-47.0); Hemoglobin 12.1 g/dl (12.0-16.0); Immature Granulocytes # (auto) 0.04 K/uL (0.01-0.20); Immature Granulocytes % (auto) 0.4 %; Lymphocytes # (auto) 1.83 K/uL (1.20-3.40); Lymphocytes % (auto) 17.2 %; Mean Corpuscular Hemoglobin 29.2 pg (25.0-34.0); Mean Corpuscular Hgb Conc 33.7 g/dL (32.0-36.0); Mean Corpuscular Volume 86.7 fL (80.0-100.0); Mean Platelet Volume 10.5 fL (9.4-12.4); Monocytes % (auto) 6.6 %; Neutrophils # (auto) 7.91 K/uL (1.40-6.50); Neutrophils % (auto) 74.2 %; Platelet Count 179 K/uL (130-400); Red Blood Count 4.14 M/uL (4.20-5.40); White Blood Count 10.65 K/ul (4.8-10.8)
--- NOTE | 2024-04-22 18:11 | XRay Report ---
Chest radiograph, one view History: Chest pain Comparison: 04/12/2024 Findings: Single AP view of the chest performed. No focal consolidation or pleural effusion. No pneumothorax. The cardiomediastinal silhouette is within normal limits. CABG changes. Normal pulmonary vascularity. No evidence for lymphadenopathy. No visualized bony or soft tissue abnormality. Median sternotomy wires in place. Chronic deformity of the left shoulder. Impression: No acute process Electronically signed by Albino Barker 04-22-2024 6:11 PM
[2024-04-22 18:25] LABS: Albumin Globulin Ratio 1.3 (0.9-2); Albumin Level 3.8 gm/dl (3.4-5.0); BUN Creatinine Ratio 20.5 (10-20); Bilirubin,Total 0.3 mg/dl (0.2-1.0); Calcium 9.4 mg/dl (8.6-10.3); Creatinine Clr Calc Pharmacy 52.3 ml/min; Globulin 2.9 gm/dl (2.5-4.0); Magnesium 1.9 mg/dl (1.7-2.4); Phosphorus 3.2 mg/dl (2.5-4.9); Total Protein 6.7 gm/dl (6.0-8.3)
[2024-04-22 18:36] LABS: INR 0.9 (0.9-1.1)
[2024-04-22 18:45] LABS: Troponin I High Sensitivity 209.6 pg/ml (0-14)
[2024-04-22 19:36] LABS: Adenovirus PCR Not Detected (NotDetected); Bordetella parapertussis PCR Not Detected (NotDetected); Bordetella pertussis PCR Not Detected (NotDetected); Chlamydia pneumoniae PCR Not Detected (NotDetected); Coronavirus 229E PCR Not Detected (NotDetected); Coronavirus CoV-2 (COVID19)PCR Not Detected (NotDetected); Coronavirus HKU1 PCR Not Detected (NotDetected); Coronavirus NL63 PCR Not Detected (NotDetected); Coronavirus OC43PCR Not Detected (NotDetected); Human Metapneumovirus PCR Not Detected (NotDetected); Influenza A PCR Not Detected (NotDetected); Influenza B PCR Not Detected (NotDetected); Mycoplasma pneumoniae PCR Not Detected (NotDetected); Parainfluenza Virus 1 PCR Not Detected (NotDetected); Parainfluenza Virus 2 PCR Not Detected (NotDetected); Parainfluenza Virus 3 PCR Not Detected (NotDetected); Parainfluenza Virus 4 PCR Not Detected (NotDetected); Respiratory Syncytial VirusPCR Not Detected (NotDetected); Rhinovirus/Enterovirus PCR Not Detected (NotDetected)
[2024-04-22] MEDS: BUMETANIDE 4 MG in SYRINGE 0 ML IV ONE (20:39)
[2024-04-22] MEDS ORDERED: POLYETHYLENE (MIRALAX) 17 GM PACK PO PRN ×2 (23:05)
[2024-04-22] MEDS ORDERED: LIDOCAINE 5% 1 PATCH TD PRN (23:05)
[2024-04-23] MEDS: traZODone HCL 50 MG TAB PO SCH (00:27)
[2024-04-23] MEDS: ATENOLOL 25 MG TABLET PO SCH (00:28)
[2024-04-23] MEDS: ENOXAPARIN INJ 40 MG/0.4 ML SYR SQ SCH (00:28)
[2024-04-23 02:08] LABS: Appearance Urine Clear (Clear); Bilirubin Urine Negative (Negative); Blood Urine Negative (Negative); Color Urine Yellow; Glucose Urine UA Negative (Negative); Ketones Urine Negative (Negative); Leukocyte Esterase Urine Negative (Negative); Nitrite Urine Negative (Negative); Protein Urine Negative (Negative); Specific Gravity Urine 1.006 (1.000-1.030); Urobilinogen Urine Negative (Negative)
--- NOTE | 2024-04-23 05:49 | History & Physical Report ---
Date of Service April 22, 2024 Assessment & Plan (1) Acute CHF: Plan: 78-year-old female with past medical history significant for CAD status post CABG, PCI x 2, severe aortic stenosis, heart failure with preserved ejection fraction, moderate LVH, hypertension GERD, hypothyroidism, depression comes because of chest pain and shortness of breath. Patient states she has been short of breath for last couple of weeks. For last couple of days having chest pain in the center of the chest. Currently pain is better. Denies any nausea. No cough. No fevers. No headache. Says always dizzy. No abdominal pain. Normal bowel and bladder movements. Has swelling of the legs and some mild erythema in the legs. Acute CHF History of severe aortic stenosis Acute heart failure with preserved ejection fraction Ongoing short of breath. Lower extremity edema. Received IV Bumex 4 mg in the ER. Hold home p.o. Bumex Will continue with IV Bumex 4 mg daily Telemetry Cardiology consult in a.m. for further recommendations Chest pains On and off EKG no acute findings Initial troponin 209 and repeat is 216 N.p.o. Follow serial cardiac enzymes and echo Consult cardiology. History of CAD status post CABG and stents On aspirin, atorvastatin, atenolol Will follow echo History of sleep apnea Patient says she is not using CPAP currently seems she do not have supplies Needs help with a new CPAP Hypothyroidism On Synthyroid DVT prophylaxis Lovenox Disposition Telemetry Full code. History of Present Illness Chief Complaint: Chest pain and shortness of breath Primary Care Provider: Eren Ybarra DO 78-year-old female with past medical history significant for CAD status post CABG, PCI x 2, severe aortic stenosis, heart failure with preserved ejection fraction, moderate LVH, hypertension GERD, hypothyroidism, depression comes because of chest pain and shortness of breath. Patient states she has been short of breath for last couple of weeks. For last couple of days having chest pain in the center of the chest. Currently pain is better. Denies any nausea. No cough. No fevers. No headache. Says always dizzy. No abdominal pain. Normal bowel and bladder movements. Has swelling of the legs and some mild erythema in the legs. Past medical history. As mentioned above Past surgical history. . Tonsillectomy. Knee replacement. Hip replacement spinal fusion. Family history.. Father had prostate cancer. Mother had hypertension and CHF. Brother had liver cancer, colon cancer. Brother had kidney cancer. Diabetes. CHF. Social history. No smoking. Occasional alcohol. No drug use. Allergies Allergy/AdvReac Type Severity Reaction Status Date / Time aripiprazole Allergy Unknown UNKNOWN Unverified 04/12/24 12:28 baclofen Allergy Unknown UNKNOWN Unverified 02/27/24 10:31 diazepam Allergy Unknown UNKNOWN Unverified 02/27/24 10:31 ketorolac Allergy Unknown UNKNOWN Unverified 02/27/24 10:31 oxaprozin Allergy Unknown UNKNOWN Unverified 02/27/24 10:31 Home Medications Medication Instructions Recorded Confirmed Type aspirin 81 mg tablet,delayed 81 mg PO DAILY 04/22/24 04/22/24 History release atenolol 25 mg tablet 25 mg PO BID 04/22/24 04/22/24 History atorvastatin 20 mg tablet 20 mg PO DAILY 04/22/24 04/22/24 History bumetanide 1 mg tablet 3 mg PO DAILY 04/22/24 04/22/24 History duloxetine 30 mg capsule,delayed 30 mg PO DAILY 04/22/24 04/22/24 History release levothyroxine 137 mcg tablet 137 mcg PO DAILY 04/22/24 04/22/24 History lidocaine 5 % topical patch 1 patch topical DAILY PRN Pain 04/22/24 04/22/24 History omeprazole 20 mg capsule,delayed 20 mg PO DAILY 04/22/24 04/22/24 History release oxybutynin chloride 10 mg 10 mg PO DAILY 04/22/24 04/22/24 History tablet,extended release 24 hr polyethylene glycol 3350 17 gram 17 g PO DAILY PRN Constipation 04/22/24 04/22/24 History oral powder packet (Miralax) potassium chloride 20 mEq 20 meq PO DAILY 04/22/24 04/22/24 History tablet,extended release trazodone 150 mg tablet 150 mg PO HS 04/22/24 04/22/24 History Past Med/Surg History Problem List (Updated 04/23/24 @ 05:45 by Eldon Vickers MD) Acute CHF Elevated troponin (Acute) Hypervolemia (Acute) Chest pain (Acute) Chest pain (Acute) Atypical chest pain Chest pain (Acute) Stented coronary artery LVH (left ventricular hypertrophy) Rotator cuff tear arthropathy of right shoulder (HFpEF) heart failure with preserved ejection fraction (Acute) S/P CABG x 2 (Acute) Ambulatory dysfunction CAD (coronary artery disease) Severe aortic stenosis Right shoulder pain Arm pain (Acute) Chest pain (Acute) Antiplatelet or antithrombotic long-term use Neurogenic claudication Lumbar spinal stenosis Chronic pain syndrome (Acute) Atherosclerotic heart disease of [place] coronary artery without angina pectoris Hypothyroidism Hyperlipidemia GERD (gastroesophageal reflux disease) Essential hypertension Weakness generalized (Acute) Medical History CHF (congestive heart failure) 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 Encephalopathy Surgical History H/O: section Hx of tonsillectomy History of knee replacement History of hip replacement H/O spinal fusion Family History Father Prostate cancer Mother Hypertension CHF (congestive heart failure) Brother Liver cancer Colon cancer Brother History of kidney cancer Diabetes CHF (congestive heart failure) Social History Smoking Status: Never smoker Hx Alcohol Use: Yes Alcohol type: wine Alcohol Intake Frequency: Monthly or Less Hx Substance Use: No Preferred Language: Taiwanese Communication Ability: Effective Ware Finisher Required: No Beliefs That Will Affect Care: None Current Living Situation: Personal Care Facility Other Information That Helps Us Care for You: No Feels Safe at Home: Yes Safety Concerns: Feels Safe At This Time Assistive Devices: Glasses Review of Systems Review of Systems: All systems reviewed & are unremarkable except as noted in HPI & below Physical Exam Physical Exam: General-Not in distress. Head- atraumatic Eyes- PERRL. ENT- oropharynx clear Neck- supple, no JVD. Lungs- clear to auscultation no wheezing or crackles Heart- regular rate and rhythm; no murmur, no gallop. Abdomen- normal bowel sounds, soft, nontender, no distension Extremities-b/l lower extremity edema present with mild erythema. Neuro- alert, oriented PERRL, no facial palsy; no dysarthria; moves extremities Results & Data Results & Data Vital Signs (Past 12 Hours) Vital Signs Temp Pulse Pulse Resp BP BP Pulse Ox 04/22/24 20:39 94 H 157/90 H 04/22/24 19:20 93 H 18 142/85 H 04/22/24 17:49 92 H 04/22/24 17:47 04/22/24 17:33 04/22/24 17:33 36.5 C 93 H 23 135/86 94 O2 Del Method 04/22/24 20:39 04/22/24 19:20 Room Air 04/22/24 17:49 04/22/24 17:47 Room Air 04/22/24 17:33 Room Air 04/22/24 17:33 Room Air Diagnostic Findings Laboratory Results WBC 10.65 K/ul (4.8-10.8) 04/22/24 17:44 RBC 4.14 M/uL (4.20-5.40) L 04/22/24 17:44 Hgb 12.1 g/dl (12.0-16.0) 04/22/24 17:44 Hct 35.9 % (37.0-47.0) L 04/22/24 17:44 MCV 86.7 fL (80.0-100.0) 04/22/24 17:44 MCH 29.2 pg (25.0-34.0) 04/22/24 17:44 MCHC 33.7 g/dL (32.0-36.0) 04/22/24 17:44 RDW Std Deviation 43.0 fL (36.4-46.3) 04/22/24 17:44 RDW Coeff of Vy 14.0 % (11.5-14.5) 04/22/24 17:44 Plt Count 179 K/uL (130-400) 04/22/24 17:44 MPV 10.5 fL (9.4-12.4) 04/22/24 17:44 Immature Gran % (Auto) 0.4 % 04/22/24 17:44 Neut % (Auto) 74.2 % 04/22/24 17:44 Lymph % (Auto) 17.2 % 04/22/24 17:44 [place] % (Auto) 6.6 % 04/22/24 17:44 Eos % (Auto) 1.2 % 04/22/24 17:44 Baso % (Auto) 0.4 % 04/22/24 17:44 Neut # (Auto) 7.91 K/uL (1.40-6.50) H 04/22/24 17:44 Lymph # (Auto) 1.83 K/uL (1.20-3.40) 04/22/24 17:44 [place] # (Auto) 0.70 K/uL (0.11-0.59) H 04/22/24 17:44 Eos # (Auto) 0.13 K/uL (0.00-0.50) 04/22/24 17:44 Baso # (Auto) 0.04 K/uL (0.00-0.20) 04/22/24 17:44 Immature Gran # (Auto) 0.04 K/uL (0.01-0.20) 04/22/24 17:44 PT 10.0 Seconds (9.0-12.0) 04/22/24 17:44 INR 0.9 (0.9-1.1) 04/22/24 17:44 Sodium 140 mmol/L (136-145) 04/22/24 17:44 Potassium 4.0 mmol/L (3.5-5.1) 04/22/24 17:44 Chloride 110 mmol/L (98-107) H 04/22/24 17:44 Carbon Dioxide 23 mmol/L (21-32) 04/22/24 17:44 Anion Gap 7 (3-11) 04/22/24 17:44 BUN 17 mg/dl (6-23) 04/22/24 17:44 Creatinine 0.83 mg/dl (0.6-1.2) 04/22/24 17:44 Est Cr Clr Drug Dosing 52.3 ml/min 04/22/24 17:44 eGFR 71.22 04/22/24 17:44 BUN/Creatinine Ratio 20.5 (10-20) H 04/22/24 17:44 Glucose 93 mg/dl (70-99(Fasting)) 04/22/24 17:44 Calcium 9.4 mg/dl (8.6-10.3) 04/22/24 17:44 Phosphorus 3.2 mg/dl (2.5-4.9) 04/22/24 17:44 Magnesium 1.9 mg/dl (1.7-2.4) 04/22/24 17:44 Total Bilirubin 0.3 mg/dl (0.2-1.0) 04/22/24 17:44 AST 17 U/L (13-39) 04/22/24 17:44 ALT 11 U/L (7-52) 04/22/24 17:44 Alkaline Phosphatase 84 U/L (34-104) 04/22/24 17:44 Troponin I High Sens 216.1 pg/ml (0-14) H* 04/22/24 20:17 B-Natriuretic Peptide 196 pg/ml (0-100) H 04/22/24 17:44 Total Protein 6.7 gm/dl (6.0-8.3) 04/22/24 17:44 Albumin 3.8 gm/dl (3.4-5.0) 04/22/24 17:44 Globulin 2.9 gm/dl (2.5-4.0) 04/22/24 17:44 Albumin/Globulin Ratio 1.3 (0.9-2) 04/22/24 17:44 Lipase 82 U/L (11-82) 04/22/24 17:44 Urine Color Yellow 04/23/24 01:56 Urine Appearance Clear (Clear) 04/23/24 01:56 Urine pH 6.0 (4.5-7.5) 04/23/24 01:56 Ur Specific [place] 1.006 (1.000-1.030) 04/23/24 01:56 Urine Protein Negative (Negative) 04/23/24 01:56 Urine Glucose (UA) Negative (Negative) 04/23/24 01:56 Urine Ketones Negative (Negative) 04/23/24 01:56 Urine Blood Negative (Negative) 04/23/24 01:56 Urine Nitrite Negative (Negative) 04/23/24 01:56 Urine Bilirubin Negative (Negative) 04/23/24 01:56 Urine Urobilinogen Negative (Negative) 04/23/24 01:56 Ur Leukocyte Esterase Negative (Negative) 04/23/24 01:56 Nasal Screen MRSA (PCR) Negative (Negative) 04/23/24 Unknown Adenovirus (PCR) Not Detected (NotDetected) 04/22/24 18:40 B. pertussis DNA (PCR) Not Detected (NotDetected) 04/22/24 18:40 B.parapertussis DNA PCR Not Detected (NotDetected) 04/22/24 18:40 C. pneumoniae DNA (PCR) Not Detected (NotDetected) 04/22/24 18:40 Coronavirus OC43 (PCR) Not Detected (NotDetected) 04/22/24 18:40 Coronavirus HKU1 (PCR) Not Detected (NotDetected) 04/22/24 18:40 Coronavirus 229E (PCR) Not Detected (NotDetected) 04/22/24 18:40 SARS-CoV-2 (PCR) Not Detected (NotDetected) 04/22/24 18:40 Coronavirus NL63 (PCR) Not Detected (NotDetected) 04/22/24 18:40 Human Metapneumovir PCR Not Detected (NotDetected) 04/22/24 18:40 Influenza Type A (PCR) Not Detected (NotDetected) 04/22/24 18:40 Influenza Type B (PCR) Not Detected (NotDetected) 04/22/24 18:40 M. pneumoniae (PCR) Not Detected (NotDetected) 04/22/24 18:40 Parainfluenza 1 (PCR) Not Detected (NotDetected) 04/22/24 18:40 Parainfluenza 2 (PCR) Not Detected (NotDetected) 04/22/24 18:40 Parainfluenza 3 (PCR) Not Detected (NotDetected) 04/22/24 18:40 Parainfluenza 4 (PCR) Not Detected (NotDetected) 04/22/24 18:40 RSV (PCR) Not Detected (NotDetected) 04/22/24 18:40 Entero/Rhino (PCR) Not Detected (NotDetected) 04/22/24 18:40 Impressions Chest X-Ray 04/22/24 17:44 Chest radiograph, one view History: Chest pain Comparison: 04/12/2024 Findings: Single AP view of the chest performed. No focal consolidation or pleural effusion. No pneumothorax. The cardiomediastinal silhouette is within normal limits. CABG changes. Normal pulmonary vascularity. No evidence for lymphadenopathy. No visualized bony or soft tissue abnormality. Median sternotomy wires in place. Chronic deformity of the left shoulder. Impression: No acute process Electronically signed by Albino Barker 04-22-2024 6:11 PM ECG Additional Comments: ECG. Normal sinus rhythm rate of 94. Possible left atrial enlargement. Nonspecific T wave abnormality in inferior leads. QTc 497 Code Status & VTE Plan VTE Prophylaxis Plan VTE Prophylaxis will be ordered: Yes
[2024-04-23 06:26] LABS: Basophils # (auto) 0.04 K/uL (0.00-0.20); Basophils % (auto) 0.4 %; Eosinophils # (auto) 0.13 K/uL (0.00-0.50); Eosinophils % (auto) 1.3 %; Hemoglobin 12.8 g/dl (12.0-16.0); Immature Granulocytes # (auto) 0.04 K/uL (0.01-0.20); Immature Granulocytes % (auto) 0.4 %; Lymphocytes # (auto) 1.41 K/uL (1.20-3.40); Lymphocytes % (auto) 14.3 %; Mean Corpuscular Hemoglobin 29.1 pg (25.0-34.0); Mean Corpuscular Hgb Conc 33.7 g/dL (32.0-36.0); Mean Corpuscular Volume 86.4 fL (80.0-100.0); Mean Platelet Volume 10.5 fL (9.4-12.4); Monocytes # (auto) 0.64 K/uL (0.11-0.59); Monocytes % (auto) 6.5 %; Neutrophils # (auto) 7.59 K/uL (1.40-6.50); Neutrophils % (auto) 77.1 %; Platelet Count 181 K/uL (130-400); RDW Standard Deviation 43.8 fL (36.4-46.3); White Blood Count 9.85 K/ul (4.8-10.8)
[2024-04-23 06:40] LABS: BUN Creatinine Ratio 22.5 (10-20); Calcium 9.2 mg/dl (8.6-10.3); Creatinine Clr Calc Pharmacy 53.1 ml/min; Magnesium 1.9 mg/dl (1.7-2.4); Potassium 3.6 mmol/L (3.5-5.1)
[2024-04-23] MEDS: LEVOTHYROXINE SODIUM 137 MCG TABLET PO SCH (06:44)
[2024-04-23 06:49] LABS: Troponin I High Sensitivity 159.5 pg/ml (0-14)
--- NOTE | 2024-04-23 08:05 | Electrocardiogram Report ---
Test Reason : Blood Pressure : */* mmHG Vent. 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
--- NOTE | 2024-04-23 08:40 | Electrocardiogram Report ---
Test Reason : Blood Pressure : */* mmHG Vent. 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
[2024-04-23] MEDS: PERFLUTREN LIPID MICROSPHERE (DEFINITY) IV ONE (08:48)
[2024-04-23] MEDS: PANTOprazole 40 MG TAB PO SCH (08:50)
[2024-04-23] MEDS: ASPIRIN 81 MG ECTAB PO SCH (08:50)
[2024-04-23] MEDS: OXYBUTYNIN CHLORIDE XL 5 MG TABCR PO SCH (08:50)
[2024-04-23] MEDS: ATORVASTATIN 20 MG TAB PO SCH (08:50)
[2024-04-23] MEDS: DULoxetine HCL 30 MG CAP PO SCH (08:50)
[2024-04-23] MEDS: BUMETANIDE 4 MG in SYRINGE 0 ML IV SCH (08:50)
[2024-04-23] MEDS: POTASSIUM CHLORIDE CRTAB 20 MEQ TABCR PO SCH (08:52)
--- NOTE | 2024-04-23 10:13 | Ultrasound Report ---
BILATERAL LOWER EXTREMITY VENOUS DOPPLER CLINICAL HISTORY: b/l lower ext edema. dvt? COMPARISON STUDY: Bilateral lower extremity venous Doppler ultrasound February 27, 2023. TECHNIQUE: Sonography of the deep venous system of the bilateral lower extremities was performed. Co mpression and augmentation were evaluated. FINDINGS: The bilateral common femoral, superficial femoral and popliteal veins were compressible. A ugmentation was normal. Flow was shown within the deep calf vessels. IMPRESSION: No evidence of deep venous thrombus within the bilateral lower extremities. ACT 112: Negative or not required by law. Electronically signed by: Roberto Harrison M.D. 04/23/2024 10:11 AM
[2024-04-23] MEDS: ACETAMINOPHEN 325 MG TAB PO PRN (10:36)
--- NOTE | 2024-04-23 11:09 | XCELERA ---
[id number]
--- NOTE | 2024-04-23 12:58 | Cardiology Consultation ---
Date of Consultation April 23, 2024 Assessment & Plan (1) Severe aortic stenosis: (2) Exertional angina: (3) (HFpEF) heart failure with preserved ejection fraction: (4) Demand ischemia: (5) CAD (coronary artery disease): (6) S/P CABG x 2: (7) Lumbar spinal stenosis: Plan 78-year-old woman with CAD (status post CABG and prior PCI's) who has severe aortic stenosis for which transcatheter aortic valve replacement (TAVR) is planned at [facility] later this month, presents with progressive dyspnea on exertion and exertional angina. Doubt acute coronary syndrome, no substantial rest symptoms and troponin is only mildly elevated with flat curve. Rather, suspect demand ischemia from her severe aortic stenosis, which obviously is best remedied by proceeding to TAVR. Would continue aspirin for known CAD and atenolol to maintain her currently favorable hemodynamics. She may have been mildly volume overloaded on admission, but chest x-ray was unremarkable and currently her neck veins are not elevated and there is no evidence of persistent volume overload. In the absence of evidence for overt volume overload, particularly given risk of hypotension in the context of severe aortic stenosis, would return to her maintenance home diuretic dose of bumetanid e 3 mg orally daily. She has likely returned to her baseline clinical status, but given severity of aortic stenosis and changing volume status post IV diuretic would observe for another day to ensure hemodynamics are optimized and stable and that she has no rest symptoms. Upon discharge, continue usual medications, would recommend that she markedly restrict activity (could use a wheelchair to take her to dinner) and that arrangements are made to expedite her TAVR. Dr. More will be rounding tomorrow, will ask him to check in on her. Outpatient follow-up is with Dr. Power as well as at [facility]. History of Present Illness Reason for Consultation: chest pain and sob Requesting Physician: Efrain Brandon MD Attending Physician: Efrain Brandon MD History of Present Illness 78-year-old woman who resides at [place], cardiac history notable for CAD (status post CABG and PCI's), severe aortic stenosis (TAVR planned for sometime this month) and HFpEF, medical history notable for sleep apnea and chronic pain secondary to spinal stenosis, who was admitted 04/22/2024 with dyspnea and chest discomfort on exertion. Evaluation here with initial ECG showed sinus rhythm with old septal infarct but no initial ST deviation, ECG today did show anterolateral T wave inversion which was new, echocardiogram showed normal LV systolic function with no wall motion abnormalities but with severe aortic stenosis. Moderate MR and mild AI also noted. Chest x-ray unremarkable. Lower extremity venous Doppler negative. Troponin values 209, 216, 159, 186. She has done well overnight with no further chest discomfort and no dyspnea at rest. She is able to walk to the bathroom and back without dyspnea, but noted that at her assisted living facility she could not walk the length of the hallway to dinner without developing dyspnea and chest pressure. Aside from her chronic back pain, no somatic complaints at the time of my evaluation this morning. Allergies Allergy/AdvReac Type Severity Reaction Status Date / Time aripiprazole Allergy Unknown UNKNOWN Unverified 04/12/24 12:28 baclofen Allergy Unknown UNKNOWN Unverified 02/27/24 10:31 diazepam Allergy Unknown UNKNOWN Unverified 02/27/24 10:31 ketorolac Allergy Unknown UNKNOWN Unverified 02/27/24 10:31 oxaprozin Allergy Unknown UNKNOWN Unverified 02/27/24 10:31 Home Medications Medication Instructions Recorded Confirmed Type aspirin 81 mg tablet,delayed 81 mg PO DAILY 04/22/24 04/22/24 History release atenolol 25 mg tablet 25 mg PO BID 04/22/24 04/22/24 History atorvastatin 20 mg tablet 20 mg PO DAILY 04/22/24 04/22/24 History bumetanide 1 mg tablet 3 mg PO DAILY 04/22/24 04/22/24 History duloxetine 30 mg capsule,delayed 30 mg PO DAILY 04/22/24 04/22/24 History release levothyroxine 137 mcg tablet 137 mcg PO DAILY 04/22/24 04/22/24 History lidocaine 5 % topical patch 1 patch topical DAILY PRN Pain 04/22/24 04/22/24 History omeprazole 20 mg capsule,delayed 20 mg PO DAILY 04/22/24 04/22/24 History release oxybutynin chloride 10 mg 10 mg PO DAILY 04/22/24 04/22/24 History tablet,extended release 24 hr polyethylene glycol 3350 17 gram 17 g PO DAILY PRN Constipation 04/22/24 04/22/24 History oral powder packet (Miralax) potassium chloride 20 mEq 20 meq PO DAILY 04/22/24 04/22/24 History tablet,extended release trazodone 150 mg tablet 150 mg PO HS 04/22/24 04/22/24 History Patient History Medical History CHF (congestive heart failure) 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 Encephalopathy Surgical History H/O: section Hx of tonsillectomy History of knee replacement History of hip replacement H/O spinal fusion Family History Father Prostate cancer Mother Hypertension CHF (congestive heart failure) Brother Liver cancer Colon cancer Brother History of kidney cancer Diabetes CHF (congestive heart failure) Social History Smoking Status: Never smoker Hx Alcohol Use: Yes Alcohol type: wine Alcohol Intake Frequency: Monthly or Less Hx Substance Use: No Preferred Language: Bulgarian Communication Ability: Effective Auto Clocks Repairer Required: No Beliefs That Will Affect Care: None Current Living Situation: Personal Care Facility Other Information That Helps Us Care for You: No Feels Safe at Home: Yes Safety Concerns: Feels Safe At This Time Assistive Devices: Walker Physical Exam Physical Exam: Elderly white female in no distress. BP normotensive. Pulse 66 bpm and regular. Respirations 18 unlabored. Skin: no ecchymoses or generalized lesions. HEENT: unremarkable. Neck: JVP at the clavicle at 90 degrees, soft transmitted murmur to the carotids. Lungs: Mildly decreased breath sounds but generally clear. Cardiac: Very faint heart tones, regular rhythm, systolic murmur best heard in the suprasternal notch, closure sound is likely pulmonic (given severe ), no diastolic murmur appreciated. Abdomen: benign. Extremities: Trace pretibial edema, pulses intact. Neurologic: normal affect and conversation, nonfocal. Results & Data Vital Signs (Past 12 Hours) Vital Signs Temp Pulse Pulse Resp BP Pulse Ox O2 Del Method 04/23/24 11:20 97.2 F L 66 18 116/62 95 Room Air 04/23/24 07:30 Room Air 04/23/24 07:06 97.5 F L 73 18 106/67 94 Room Air 04/23/24 03:37 97.3 F L 76 18 117/68 96 Room Air 04/23/24 02:00 104 H 04/23/24 02:00 114/76 04/23/24 01:15 97.5 F L 101 H 20 107/73 93 Room Air Laboratory Results Troponin as per HPI. Normal electrolytes, BUN 18, creatinine 0.8. Normal CBC. Diagnostic Findings ECG and imaging studies as per HPI. PG Care Time/CCT Total # of Minutes Spent Total Time Spent with Patient: Total time spent is greater than 50% in coordination of care (as documented) at patient's floor/unit and/or counseling patient: Coding Level of Care Code 69267 IN/OBS CONSULT LVL 5,80M Diagnoses Severe aortic stenosis I35.0 Exertional angina I20.89 Acute on chronic heart failure with preserved ejection fraction I50.30 Demand ischemia I24.89 Coronary artery disease involving [place] coronary artery of [place] heart without angina pectoris I25.10 Coronary Disease-Associated Artery/Lesion type: [place] artery [place] vs. transplanted heart: [place] heart Associated angina: without angina S/P CABG x 2 Z95.1 Lumbar spinal stenosis M48.061 (5) CAD (coronary artery disease) Coronary Disease-Associated Artery/Lesion type: [place] artery [place] vs. transplanted heart: [place] heart Associated angina: without angina Qualified Code(s): I25.10 - Atherosclerotic heart disease of [place] coronary artery without angina pectoris
[2024-04-23] MEDS: CLOTRIMAZOLE 1% CR 15 GM TUBE EXT SCH (13:01)
--- NOTE | 2024-04-23 15:37 | Hospitalist Progress Note ---
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 she is being managed for the following: Acute Exacerbation of HFpEF History of severe aortic stenosis Patient presenting with complaint of progressive shortness of breath associated with chest discomfort and lower extremity edema. Patient reports compliance with home p.o. Bumex and cardiac medication. Echo this admission: EF of 65 to 70%, grade 1 diastolic dysfunction, severe valvular aortic stenosis. Left ventricular wall motion is normal. Cardiology on board, patient being diuresed, Patient switched back to her home diuretic dose per cardiology. Strict I's and O's, fluid restriction of 1.8 L/day, monitor replete electrolytes, continue telemetry monitoring, Sparks catheter for I's and O's. Follow-up with cardiology, and [facility] for TAVR upon discharge. Chest pains, Likely demand ischemia ISO severe aortic stenosis Troponin elevated, flat trend, EKG with no acute finding, echo as above. Cardiology evaluated, appreciate recommendation. Continue telemetry. Other chronic medical conditions: Continue with/resume home meds as and when able. History of CAD status post CABG and stents: On aspirin, atorvastatin, atenolol History of sleep apnea: Patient says she is not using CPAP currently seems she do not have supplies. Needs help with a new CPAP, reached out to cm for assistance. Hypothyroidism: On Synthyroid DVT prophylaxis: Lovenox Disposition: Telemetry. PT/OT, CM to assist w/ dc plan. Full code. Admission and Anticipated Discharge Date Admission Date: April 22, 2024 Subjective Patient was seen and examined at bedside. Patient was sitting up in chair, on room air, NAD, resting comfortably. Patient reports little improvement in her shortness of breath/dry cough/chest discomfort. Patient reports eating okay and moving bowels okay. Per RN, no new acute event overnight. Physical Exam Physical Exam: General-Not in distress. Head- atraumatic Eyes- PERRL. ENT- oropharynx clear Neck- supple, no JVD. Lungs- clear to auscultation no wheezing or crackles Heart- regular rate and rhythm; no murmur, no gallop. Abdomen- normal bowel sounds, soft, nontender, no distension Extremities-b/l lower extremity trace edema present, noerythema. Neuro- alert, oriented PERRL, no facial palsy; no dysarthria; moves extremities Results & Data Results & Data Vital Signs (Past 12 Hours) Vital Signs Temp Pulse Resp BP Pulse Ox O2 Del Method 04/23/24 15:10 36.7 C 62 18 116/77 97 Room Air 04/23/24 11:20 36.2 C L 66 18 116/62 95 Room Air 04/23/24 07:30 Room Air 04/23/24 07:06 36.4 C L 73 18 106/67 94 Room Air 04/23/24 03:37 36.3 C L 76 18 117/68 96 Room Air
[2024-04-23] MEDS ORDERED: Nursing to Pharmacy Communication SCH (20:45)
[2024-04-24 06:08] LABS: Hematocrit (blood only) 36.9 % (37.0-47.0); Hemoglobin 12.4 g/dl (12.0-16.0); Mean Corpuscular Hemoglobin 29.1 pg (25.0-34.0); Mean Corpuscular Hgb Conc 33.6 g/dL (32.0-36.0); Mean Corpuscular Volume 86.6 fL (80.0-100.0); Mean Platelet Volume 10.8 fL (9.4-12.4); Platelet Count 201 K/uL (130-400); RDW Coefficient of Variation 13.8 % (11.5-14.5); RDW Standard Deviation 43.3 fL (36.4-46.3); Red Blood Count 4.26 M/uL (4.20-5.40); White Blood Count 8.85 K/ul (4.8-10.8)
[2024-04-24 06:26] LABS: BUN Creatinine Ratio 28.4 (10-20); Creatinine Clr Calc Pharmacy 45.1 ml/min; Magnesium 1.9 mg/dl (1.7-2.4); Phosphorus 3.2 mg/dl (2.5-4.9); Potassium 3.9 mmol/L (3.5-5.1)
[2024-04-24] MEDS: BUMETANIDE 1 MG TAB PO SCH (09:12)
--- NOTE | 2024-04-24 14:05 | Hospitalist Progress Note ---
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 she is being managed for th e following: Acute Exacerbation of HFpEF History of severe aortic stenosis Patient presenting with complaint of progressive shortness of breath associated with chest discomfort and lower extremity edema. Patient reports compliance with home p.o. Bumex and cardiac medication. Echo this admission: EF of 65 to 70%, grade 1 diastolic dysfunction, severe valvular aortic stenosis. Left ventricular wall motion is normal. Cardiology evaled, pt transitioned to home bumex 04/24, recommends she markedly restrict activity (could use a wheelchair to take her to dinner) until [place] [facility] [place] Strict I's and O's, fluid restriction of 1.8 L/day, monitor replete electrolytes, continue telemetry monitoring, Sparks catheter for I's and O's. Follow-up with cardiology, and [facility] for TAVR upon discharge. Chest pains, Likely demand ischemia ISO severe aortic stenosis Troponin elevated, flat trend, EKG with no acute finding, echo as above. Cardiology evaluated, appreciate recommendation. Continue telemetry. chest pain resolved. Other chronic medical conditions: Continue with/resume home meds as and when able. History of CAD status post CABG and stents: On aspirin, atorvastatin, atenolol History of sleep apnea: Patient says she is not using CPAP currently seems she do not have supplies. Needs help with a new CPAP, reached out to cm for assistance. Hypothyroidism: On Synthyroid DVT prophylaxis: Lovenox Disposition: Telemetry. PT/OT, CM assisting w/ return back to [facility]. can dc once p ch able to take her back Full code. Admission and Anticipated Discharge Date Admission Date: April 22, 2024 Subjective Patient was seen and examined at bedside. Patient was sitting up in chair, on room air, NAD, resting comfortably. Patient reports improvement in her shortness of breath/dry cough/chest discomfort back to her baseline, she has FERNÁNDEZ at baseline iso severe . Pt w/ no new complaints in the interval. Physical Exam Physical Exam: General-Not in distress. Head- atraumatic Eyes- PERRL. ENT- oropharynx clear Neck- supple, no JVD. Lungs- clear to auscultation no wheezing or crackles Heart- regular rate and rhythm; no murmur, no gallop. Abdomen- normal bowel sounds, soft, nontender, no distension Extremities-b/l lower extremity trace edema present, noerythema. Neuro- alert, oriented PERRL, no facial palsy; no dysarthria; moves extremities Results & Data Results & Data Vital Signs (Past 12 Hours) Vital Signs Temp Pulse Pulse Resp BP Pulse Ox O2 Del Method 04/24/24 10:38 36.6 C 69 18 114/76 95 Room Air 04/24/24 08:04 36.6 C 71 18 105/68 94 Room Air 04/24/24 07:15 71 04/24/24 07:15 Room Air 04/24/24 03:12 36.5 C 72 20 125/70 93 Room Air
--- NOTE | 2024-04-24 17:31 | Electrocardiogram Report ---
Test Reason : Blood Pressure : */* mmHG Vent. Rate : 73 BPM Atrial Rate : 73 BPM P-R Int : 184 ms QRS Dur : 96 ms QT Int : 458 ms P-R-T Axes : 60 -15 124 degrees QTcB Int : 504 ms Normal sinus rhythm Possible Left atrial enlargement Septal infarct (cited on or before 12-Apr-2024) Abnormal ECG When compared with ECG of 23-Apr-2024 06:27, Questionable change in initial forces of Septal leads T wave inversion no longer evident in Anterolateral leads Confirmed by Johnnie Cox ([id number]) on 04/24/2024 5:31:02 PM Referred By: REFERRED SELF Confirmed By: Johnnie Cox
[2024-04-24] MEDS: oxyCODONE HCL IR 5 MG TAB (IMMEDIATE RELEASE) PO STA (20:06)
[2024-04-25 06:26] LABS: Calcium 8.9 mg/dl (8.6-10.3); Creatinine Clr Calc Pharmacy 41.9 ml/min; Magnesium 1.9 mg/dl (1.7-2.4); Potassium 3.7 mmol/L (3.5-5.1)
--- NOTE | 2024-04-25 14:41 | Hospitalist Progress Note ---
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 she is being managed for th e following: Acute Exacerbation of HFpEF History of severe aortic stenosis Patient presenting with complaint of progressive shortness of breath associated with chest discomfort and lower extremity edema. Patient reports compliance with home p.o. Bumex and cardiac medication. Echo this admission: EF of 65 to 70%, grade 1 diastolic dysfunction, severe valvular aortic stenosis. Left ventricular wall motion is normal. Cardiology evaled, pt transitioned to home bumex 04/24, recommends she markedly restrict activity (could use a wheelchair to take her to dinner) until TAVR which is planned later this [place] [facility] [place] Strict I's and O's, fluid restriction of 1.8 L/day, monitor replete electrolytes, continue telemetry monitoring, Sparks catheter for I's and O's. Follow-up with cardiology, and [facility] for TAVR upon discharge. Chest pains, Likely demand ischemia ISO severe aortic stenosis Troponin elevated, flat trend, EKG with no acute finding, echo as above. Cardiology evaluated, appreciate recommendation. Continue telemetry. chest pain resolved. Other chronic medical conditions: Continue with/resume home meds as and when able. History of CAD status post CABG and stents: On aspirin, atorvastatin, atenolol History of sleep apnea: Patient says she is not using CPAP currently seems she do not have supplies. Needs help with a new CPAP, reached out to cm for assistance. Hypothyroidism: On Synthyroid DVT prophylaxis: Lovenox Disposition: Telemetry. PT/OT, CM assisting w/ return back to [facility]. can dc once p ch able to take her back. Psy consult placed per request from CM to assist w/ placement. Full code. Admission and Anticipated Discharge Date Admission Date: April 22, 2024 Subjective Patient was seen and examined at bedside. Patient was sitting up in chair, on room air, NAD, resting comfortably. Patient reports improvement in her shortness of breath/dry cough/chest discomfort back to her baseline, she has FERNÁNDEZ at baseline iso severe . Pt w/ no new complaints in the interval. Physical Exam Physical Exam: General-Not in distress. Head- atraumatic Eyes- PERRL. ENT- oropharynx clear Neck- supple, no JVD. Lungs- clear to auscultation no wheezing or crackles Heart- regular rate and rhythm; no murmur, no gallop. Abdomen- normal bowel sounds, soft, nontender, no distension Extremities-b/l lower extremity trace edema present, noerythema. Neuro- alert, oriented PERRL, no facial palsy; no dysarthria; moves extremities Results & Data Results & Data Vital Signs (Past 12 Hours) Vital Signs Temp Pulse Pulse Resp BP Pulse Ox O2 Del Method 04/25/24 12:16 86 04/25/24 11:41 36.4 C L 67 18 107/64 95 Room Air 04/25/24 08:00 Room Air 04/25/24 07:30 36.6 C 69 18 113/46 L 93 Room Air 04/25/24 04:31 36.5 C 73 18 112/67 93 Room Air
--- NOTE | 2024-04-25 20:43 | Psychiatric Consultation ---
Date of Consultation April 25, 2024 Impression / Recommendations Impression Mild Neurocognitive Disorder vs. altered mental status. (1) Depression, unspecified: At this time, pt demonstrates capacity to make decisions regarding her own disposition, despite evidence of mild-moderate neurocognitive impairment. Currently able to weigh pros and cons of a decision regarding disposition and demonstrates an understanding of the risks, benefits and alternatives. Recommend involving pt in decision-making to the extent possible, leveraging the influence of her family, considering her needs, wishes and preferences. Continue Cymbalta at current dose. Consider Reconsult psychiatry if needed. Depression Type: unspecified Qualified Code(s): F32.A - De pression, unspecified Psych History Identifying Data 78-year-old woman with a past medical history of LVH, CHF with preserved EF, CAD, history of CABG x 2, severe aortic stenosis, spinal stenosis, hypertension, hyperlipidemia, GERD, hypothyroidism. Background: She presents to emergency department via EMS from her personal residential at [facility] for evaluation of chest pain. She reports a psychiatric history of Depression since her 30s and has been on Cymbalta for it for many years. Psychiatry was consulted to evaluate for capacity to make decisions about her disposition. Medical Disposition Plan: Acute Exacerbation of HFpEF History of severe aortic stenosis Patient presenting with complaint of progressive shortness of breath associated with chest discomfort and lower extremity edema. Patient reports compliance with home p.o. Bumex and cardiac medication. Echo this admission: EF of 65 to 70%, grade 1 diastolic dysfunction, severe valvular aortic stenosis. Left ventricular wall motion is normal. Cardiology evaled, pt transitioned to home bumex 04/24, recommends she markedly restrict activity (could use a wheelchair to take her to dinner) until TAVR which is planned later this month at [facility] [place]. Strict I's and O's, fluid restriction of 1.8 L/day, monitor replete electrolytes, continue telemetry monitoring, Sparks catheter for I's and O's. Follow-up with cardiology, and [facility] for TAVR upon discharge. Chest pains, Likely demand ischemia ISO severe aortic stenosis Troponin elevated, flat trend, EKG with no acute finding, echo as above. Cardiology evaluated, appreciate recommendation. Continue telemetry. chest pain resolved. Other chronic medical conditions: Continue with/resume home meds as and when able. History of CAD status post CABG and stents: On aspirin, atorvastatin, atenolol History of sleep apnea: Patient says she is not using CPAP currently seems she do not have supplies. Needs help with a new CPAP, reached out to cm for assistance. Hypothyroidism: On Synthyroid DVT prophylaxis: Lovenox Chief Complaint "I don't like people telling me what to do. I don't want to go back there". History of Present Illness Pt reports that she was discharged from a recent admission to a different hospital ([facility]) back to her personal residential ([facility]), where she has been living for 18 months. She reports she was not consulted prior to being placed at [facility] in the first place and never wanted to live there. She does not get along with staff. She admits to sometimes refusing some doses of her medication but states this is because the ones she refuses make her sleepy. She states she regularly takes Lasix and Cymbalta but not Bumex. She however, could not list all her medications. She understands that this variable adherence may contribute to her readmissions for poor control of her CHF. She is aware that it may lead to serious medical consequences including . She states she has already made her peace with God, being 78 years old, and is ok with that. Despite this, she denied being suicidal. She denied any current mood symptoms, psychosis, HI or anxiety. She states her family is aware of her stance. She is reluctant to return to the facility, which has served hr a 30 day notice because she won't follow rules. It appears that the facility is also reluctant to take her back. Pt is scheduled for TAKR on 05/01/24 at a different hospital. Per Liaison, she appeared somewhat less cognitively intact during this interview, compared with when seen by psychiatric liaison earlier today. 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 Past Psychiatric History Previous Psych History: Limited information available. Reports no prior psychiatric admissions. Initial episode of depression occurred when her marriage ended in her 30s. She has been "up and down" but never bad enough that she need hospitalization or was unable to function. Pt appears to have some degree of cognitive impairment. Current Psychiatric Diagnosis: Depressive Disorder Unspecified. Neurocognitive Disorder Unspecified. Previous Psych Admissions: None Do You Have Access To A Gun?: No History of Previous Suicide Attempt: No Past Medication Trials: Cymbalta and Trazodone Allergies Allergy/AdvReac Type Severity Reaction Status Date / Time aripiprazole Allergy Unknown UNKNOWN Unverified 04/12/24 12:28 baclofen Allergy Unknown UNKNOWN Unverified 02/27/24 10:31 diazepam Allergy Unknown UNKNOWN Unverified 02/27/24 10:31 ketorolac Allergy Unknown UNKNOWN Unverified 02/27/24 10:31 oxaprozin Allergy Unknown UNKNOWN Unverified 02/27/24 10:31 Home Medications Medication Instructions Recorded Confirmed Type aspirin 81 mg tablet,delayed 81 mg PO DAILY 04/22/24 04/22/24 History release atenolol 25 mg tablet 25 mg PO BID 04/22/24 04/22/24 History atorvastatin 20 mg tablet 20 mg PO DAILY 04/22/24 04/22/24 History bumetanide 1 mg tablet 3 mg PO DAILY 04/22/24 04/22/24 History duloxetine 30 mg capsule,delayed 30 mg PO DAILY 04/22/24 04/22/24 History release levothyroxine 137 mcg tablet 137 mcg PO DAILY 04/22/24 04/22/24 History lidocaine 5 % topical patch 1 patch topical DAILY PRN Pain 04/22/24 04/22/24 History omeprazole 20 mg capsule,delayed 20 mg PO DAILY 04/22/24 04/22/24 History release oxybutynin chloride 10 mg 10 mg PO DAILY 04/22/24 04/22/24 History tablet,extended release 24 hr polyethylene glycol 3350 17 gram 17 g PO DAILY PRN Constipation 04/22/24 04/22/24 History oral powder packet (Miralax) potassium chloride 20 mEq 20 meq PO DAILY 04/22/24 04/22/24 History tablet,extended release trazodone 150 mg tablet 150 mg PO HS 04/22/24 04/22/24 History Patient History Medical History (Updated 04/25/24 @ 20:38 by Kimberli Fox MD) Depression, unspecified CHF (congestive heart failure) 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 Encephalopathy Surgical History H/O: section Hx of tonsillectomy History of knee replacement History of hip replacement H/O spinal fusion Family History Father Prostate cancer Mother Hypertension CHF (congestive heart failure) Brother Liver cancer Colon cancer Brother History of kidney cancer Diabetes CHF (congestive heart failure) Social History Smoking Status: Never smoker Hx Alcohol Use: Yes Alcohol type: wine Alcohol Intake Frequency: Monthly or Less Hx Substance Use: No Preferred Language: Kazakh Communication Ability: Effective 911 Operator Required: No Beliefs That Will Affect Care: None Current Living Situation: Personal Care Facility Other Information That Helps Us Care for You: No Feels Safe at Home: Yes Safety Concerns: Feels Safe At This Time Assistive Devices: Walker Physical Exam Psychiatric: A+Ox3, euthymic affect Alert, cooperative Oriented to person, hospital, floor. Could not state date, year, weekday. Apperance: appropriately dressed, appropriately groomed and appeared stated age Eye Contact: good eye contact Motor Behavior: no abnormal motor movements Speech: normal rate/rhythm/volume of speech Affect: euthymic affect and mood congruent with affect Euthymic mood Thought Process: goal directed thought process and clear/coherent thought process Thought Content: reality based without delusions Suicidal Thoughts: denies suicidal thoughts, denies suicidal plan and denies suicidal intent Homicidal Thoughts: denies homicidal thoughts, denies homicidal plan and denies homicidal intent Denied any Limited fund of general knowledge. Concentration poor. Attention good. Registration 3/3. Immediate recall 3/3. Delayed recall 0/3. Unable to subtract serial 3s. Able to abstract a proverb, good judgment in a hypothetical situation. Estimated Intelligence: average estimated intelligence Insight: + fair insight Judgment: + fair judgement Vital Signs (Past 24 Hours): Last Vital Signs Temp 36.9 C 04/25/24 19:26 Pulse 74 04/25/24 19:26 Resp 18 04/25/24 19:26 BP 100/65 04/25/24 19:26 Pulse Ox 93 04/25/24 19:26 O2 Del Method Room Air 04/25/24 19:26 Results & Data (PSY) Medications Administered Acetaminophen (Acetaminophen 325 Mg Tab) 650 mg PO Q4H PRN PRN Reason: Pain or Fever Stop: 05/22/24 23:04 Last Admin: 04/24/24 16:06 Dose: 650 mg Documented By: Admin: 04/24/24 07:16 Dose: 650 mg Documented By: Admin: 04/23/24 10:36 Dose: 650 mg Documented By: WILY Aspirin (Aspirin 81 Mg Ectab) 81 mg PO DAILY CALLIE Stop: 05/23/24 08:59 Last Admin: 04/25/24 08:35 Dose: 81 mg Documented By: Admin: 04/24/24 08:46 Dose: 81 mg Documented By: Admin: 04/23/24 08:50 Dose: 81 mg Documented By: WILY Atenolol (Atenolol 25 Mg Tablet) 25 mg PO BID CALLIE Stop: 05/22/24 23:04 Last Admin: 04/25/24 20:01 Dose: 25 mg Documented By: Admin: 04/25/24 08:35 Dose: 25 mg Documented By: Admin: 04/24/24 20:07 Dose: 25 mg Documented By: Admin: 04/24/24 08:46 Dose: 25 mg Documented By: Admin: 04/23/24 20:38 Dose: 25 mg Documented By: Admin: 04/23/24 08:50 Dose: 25 mg Documented By: Admin: 04/23/24 00:28 Dose: 25 mg Documented By: ADRI Atorvastatin Calcium (Atorvastatin 20 Mg Tab) 20 mg PO DAILY CALLIE Stop: 05/23/24 08:59 Last Admin: 04/25/24 08:36 Dose: 20 mg Documented By: Admin: 04/24/24 08:45 Dose: 20 mg Documented By: Admin: 04/23/24 08:50 Dose: 20 mg Documented By: WILY Bumetanide (Bumetanide 1 Mg Tab) 3 mg PO DAILY CALLIE Stop: 05/24/24 08:59 Last Admin: 04/25/24 08:35 Dose: 3 mg Documented By: Admin: 04/24/24 09:12 Dose: 3 mg Documented By: WILY Clotrimazole (Clotrimazole 1% Cr 15 Gm Tube) 1 appln EXT BID CALLIE Stop: 05/23/24 11:29 Last Admin: 04/25/24 20:01 Dose: 1 appln Documented By: Admin: 04/25/24 08:37 Dose: 1 appln Documented By: Admin: 04/24/24 20:07 Dose: 1 appln Documented By: Admin: 04/24/24 08:47 Dose: 1 appln Documented By: Admin: 04/23/24 20:38 Dose: 1 appln Documented By: Admin: 04/23/24 13:01 Dose: 1 appln Documented By: WILY Duloxetine HCl (Duloxetine Hcl 30 Mg Cap) 30 mg PO DAILY CALLIE Stop: 05/23/24 08:59 Last Admin: 04/25/24 08:37 Dose: 30 mg Documented By: Admin: 04/24/24 08:45 Dose: 30 mg Documented By: Admin: 04/23/24 08:50 Dose: 30 mg Documented By: WILY Enoxaparin Sodium (Enoxaparin Inj 40 Mg/0.4 Ml Syr) 40 mg SQ Q24H CALLIE Stop: 05/22/24 23:04 Last Admin: 04/25/24 20:01 Dose: 40 mg Documented By: Admin: 04/24/24 20:06 Dose: 40 mg Documented By: Admin: 04/23/24 21:20 Dose: 40 mg Documented By: Admin: 04/23/24 00:28 Dose: 40 mg Documented By: ADRI Levothyroxine Sodium (Levothyroxine Sodium 137 Mcg Tablet) 137 mcg PO DAILYBB [facility] Stop: 05/23/24 06:29 Last Admin: 04/25/24 05:45 Dose: 137 mcg Documented By: Admin: 04/24/24 05:44 Dose: 137 mcg Documented By: Admin: 04/23/24 06:44 Dose: 137 mcg Documented By: JED Miscellaneous (Remove Lidoderm Patch) 1 each N/A DAILY@2100 CALLIE Stop: 05/22/24 23:04 Last Admin: 04/25/24 20:01 Dose: Not Given Documented By: Admin: 04/24/24 20:07 Dose: Not Given Documented By: Admin: 04/23/24 20:38 Dose: Not Given Documented By: Admin: 04/23/24 00:28 Dose: 1 each Documented By: ADRI Oxybutynin Chloride (Oxybutynin Chloride Xl 5 Mg Tabcr) 10 mg PO DAILY CALLIE Stop: 05/23/24 08:59 Last Admin: 04/25/24 08:36 Dose: 10 mg Documented By: Admin: 04/24/24 08:46 Dose: 10 mg Documented By: Admin: 04/23/24 08:50 Dose: 10 mg Documented By: WILY Pantoprazole Sodium (Pantoprazole 40 Mg Tab) 40 mg PO DAILY CALLIE Stop: 05/23/24 08:59 Last Admin: 04/25/24 08:35 Dose: 40 mg Documented By: Admin: 04/24/24 08:45 Dose: 40 mg Documented By: Admin: 04/23/24 08:50 Dose: 40 mg Documented By: WILY Potassium Chloride (Potassium Chloride Crtab 20 Meq Tabcr) 20 meq PO DAILY CALLIE Stop: 05/23/24 08:59 Last Admin: 04/25/24 08:43 Dose: 20 meq Documented By: Admin: 04/24/24 08:50 Dose: 20 meq Documented By: Admin: 04/23/24 08:52 Dose: 20 meq Documented By: WILY Trazodone HCl (Trazodone Hcl 50 Mg Tab) 150 mg PO HS [facility] Stop: 05/22/24 23:04 Last Admin: 04/25/24 20:01 Dose: 150 mg Documented By: Admin: 04/24/24 20:06 Dose: 150 mg Documented By: Admin: 04/23/24 20:38 Dose: 150 mg Documented By: Admin: 04/23/24 00:27 Dose: 150 mg Documented By: ADRI [place] [address] Inpt Consult Level 1 Patient Type New Medical Decision Making Straight Forward Diagnoses Depression, unspecified depression type F32.A Depression Type: unspecified Time Spent (min) 60
[2024-04-26 07:12] LABS: BUN Creatinine Ratio 29.9 (10-20); Creatinine Clr Calc Pharmacy 43.5 ml/min; Magnesium 2.1 mg/dl (1.7-2.4); Potassium 3.9 mmol/L (3.5-5.1)
--- NOTE | 2024-04-26 14:50 | Hospitalist Progress Note ---
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 she is being managed for th e following: Acute Exacerbation of HFpEF History of severe aortic stenosis Patient presenting with complaint of progressive shortness of breath associated with chest discomfort and lower extremity edema. Patient reports compliance with home p.o. Bumex and cardiac medication. Echo this admission: EF of 65 to 70%, grade 1 diastolic dysfunction, severe valvular aortic stenosis. Left ventricular wall motion is normal. Cardiology evaled, pt transitioned to home bumex 04/24, recommends she markedly restrict activity (could use a wheelchair to take her to dinner) until TAVR which is planned later this month at [facility] [place]. Strict I's and O's, fluid restriction of 1.8 L/day, monitor replete electrolytes, continue telemetry monitoring, Sparks catheter for I's and O's. Follow-up with cardiology, and Yasmine for TAVR upon discharge. Chest pains, Likely demand ischemia ISO severe aortic stenosis Troponin elevated, flat trend, EKG with no acute finding, echo as above. Cardiology evaluated, appreciate recommendation. Continue telemetry. chest pain resolved. Other chronic medical conditions: Continue with/resume home meds as and when able. History of CAD status post CABG and stents: On aspirin, atorvastatin, atenolol History of sleep apnea: Patient says she is not using CPAP currently seems she do not have supplies. Needs help with a new CPAP, reached out to for assistance. Hypothyroidism: On Synthyroid DVT prophylaxis: Lovenox Disposition: Telemetry. PT/OT, Now that psychiatry has evaluated the patient, discussed with housing case manager to see if she can be discharged back to [facility]. Full code. Admission and Anticipated Discharge Date Admission Date: April 22, 2024 Subjective Patient was seen and examined at bedside. Patient was sitting up in bed, on room air, NAD, resting comfortably. Patient reports improvement in her shortness of breath/dry cough/chest discomfort back to her baseline, she has FERNÁNDEZ at baseline iso severe . Pt w/ no new complaints in the interval. Physical Exam Physical Exam: General-Not in distress. Head- atraumatic Eyes- PERRL. ENT- oropharynx clear Neck- supple, no JVD. Lungs- clear to auscultation no wheezing or crackles Heart- regular rate and rhythm; no murmur, no gallop. Abdomen- normal bowel sounds, soft, nontender, no distension Extremities-b/l lower extremity trace edema present, noerythema. Neuro- alert, oriented PERRL, no facial palsy; no dysarthria; moves extremities Results & Data Results & Data Vital Signs (Past 12 Hours) Vital Signs Temp Pulse Pulse Resp BP Pulse Ox O2 Del Method 04/26/24 14:41 69 04/26/24 13:32 71 04/26/24 12:22 36.8 C 73 18 106/67 94 Room Air 04/26/24 08:20 36.5 C 71 18 119/57 L 92 Room Air 04/26/24 07:44 Room Air 04/26/24 03:09 36.5 C 82 18 102/58 L 93 Room Air
[2024-04-27 06:22] LABS: BUN Creatinine Ratio 28.1 (10-20); Calcium 9.2 mg/dl (8.6-10.3); Potassium 3.4 mmol/L (3.5-5.1)
[2024-04-27] MEDS: POTASSIUM CHLORIDE CRTAB 20 MEQ TABCR PO STA (08:58)
--- NOTE | 2024-04-27 13:11 | Hospitalist Progress Note ---
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 she is being managed for th e following: Acute Exacerbation of HFpEF History of severe aortic stenosis Patient presenting with complaint of progressive shortness of breath associated with chest discomfort and lower extremity edema. Patient reports compliance with home p.o. Bumex and cardiac medication. Echo this admission: EF of 65 to 70%, grade 1 diastolic dysfunction, severe valvular aortic stenosis. Left ventricular wall motion is normal. Cardiology evaled, pt transitioned to home bumex 04/24, recommends she markedly restrict activity (could use a wheelchair to take her to dinner) until TAVR which is planned later this month at [facility] [place]. Strict I's and O's, fluid restriction of 1.8 L/day, monitor replete electrolytes, continue telemetry monitoring, Sparks catheter for I's and O's. Follow-up with cardiology, and Yasmine for TAVR upon discharge. She has Yasmine appt on May 01. Chest pains, Likely demand ischemia ISO severe aortic stenosis Troponin elevated, flat trend, EKG with no acute finding, echo as above. Cardiology evaluated, appreciate recommendation. Continue telemetry. chest pain resolved. Other chronic medical conditions: Continue with/resume home meds as and when able. History of CAD status post CABG and stents: On aspirin, atorvastatin, atenolol History of sleep apnea: Patient says she is not using CPAP currently seems she do not have supplies. Needs help with a new CPAP, reached out to for assistance. Hypothyroidism: On Synthyroid DVT prophylaxis: Lovenox Disposition: Telemetry. PT/OT, Now that psychiatry has evaluated the patient, discussed with counseling case manager to see if she can be discharged back to [facility], they are working on it. Will DC once she finds placement. Full code. Admission and Anticipated Discharge Date Admission Date: April 22, 2024 Subjective Patient was seen and examined at bedside. Patient was sitting up in bed, on room air, NAD, resting comfortably. Patient reports improvement in her shortness of breath/dry cough/chest discomfort back to her baseline, she has FERNÁNDEZ at baseline iso severe . Pt w/ no new complaints in the interval. Physical Exam Physical Exam: General-Not in distress. Head- atraumatic Eyes- PERRL. ENT- oropharynx clear Neck- supple, no JVD. Lungs- clear to auscultation no wheezing or crackles Heart- regular rate and rhythm; no murmur, no gallop. Abdomen- normal bowel sounds, soft, nontender, no distension Extremities-b/l lower extremity trace edema present, noerythema. Neuro- alert, oriented PERRL, no facial palsy; no dysarthria; moves extremities Results & Data Results & Data Vital Signs (Past 12 Hours) Vital Signs Temp Pulse Resp BP Pulse Ox O2 Del Method 04/27/24 11:14 36.5 C 69 18 112/66 96 Room Air 04/27/24 09:35 Room Air 04/27/24 07:00 36.5 C 76 20 123/75 96 Room Air 04/27/24 02:54 36.6 C 74 18 107/56 L 92 Room Air
[2024-04-28 06:34] LABS: BUN Creatinine Ratio 34.6 (10-20); Calcium 9.5 mg/dl (8.6-10.3); Creatinine Clr Calc Pharmacy 40.7 ml/min; Magnesium 2.1 mg/dl (1.7-2.4)
--- NOTE | 2024-04-28 15:57 | Hospitalist Progress Note ---
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 she is being managed for th e following: Acute Exacerbation of HFpEF History of severe aortic stenosis Patient presenting with complaint of progressive shortness of breath associated with chest discomfort and lower extremity edema. Patient reports compliance with home p.o. Bumex and cardiac medication. Echo this admission: EF of 65 to 70%, grade 1 diastolic dysfunction, severe valvular aortic stenosis. Left ventricular wall motion is normal. Cardiology evaled, pt transitioned to home bumex 04/24, recommends she markedly restrict activity (could use a wheelchair to take her to dinner) until [place]R which is [place] this [place] [facility] Strict I's and O's, fluid restriction of 1.8 L/day, monitor replete electrolytes, continue telemetry monitoring, Sparks catheter for I's and O's. Follow-up with cardiology, and Yasmine for TAVR upon discharge. She has Yasmine appt on May 01 w/ Dr. Crespo for Coronary Angiography. Since I was under the impression that she was getting TAVR on May 01, I communicated with [facility] [place]28 for possible transfer on 04/30 as pt is not being able to be discharged due to social issues. Dr. Crespo was off duty, I was able to reach out to cardiology team over there who confirmed that she is getting coronary angiography as a part of workup for TAVR, recommended that she be not transferred just for coronary angiography which can be done as an outpatient, requested if she can undergo coronary angiography while she is still here in the hospital. Communicated with [facility] cardiology about the same via TT. Chest pains, Likely demand ischemia ISO severe aortic stenosis Troponin elevated, flat trend, EKG with no acute finding, echo as above. Cardiology evaluated, appreciate recommendation. Continue telemetry. chest pain resolved. Other chronic medical conditions: Continue with/resume home meds as and when able. History of CAD status post CABG and stents: On aspirin, atorvastatin, atenolol History of sleep apnea: Patient says she is not using CPAP currently seems she do not have supplies. Needs help with a new CPAP, reached out to for assistance. Hypothyroidism: On Synthyroid DVT prophylaxis: Lovenox Disposition: Telemetry. PT/OT, Now that psychiatry has evaluated the patient, discussed with mental health case manager 04/27 to see if she can be discharged back to [facility], they are working on it. Will DC once she finds placement. Full code. Admission and Anticipated Discharge Date Admission Date: April 22, 2024 Subjective Patient was seen and examined at bedside. Patient was lying in bed, on room air, NAD, resting comfortably. Patient reports improvement in her shortness of breath/dry cough/chest discomfort back to her baseline, she has FERNÁNDEZ at baseline iso severe . Pt w/ no new complaints in the interval. Physical Exam Physical Exam: General-Not in distress. Head- atraumatic Eyes- PERRL. ENT- oropharynx clear Neck- supple, no JVD. Lungs- clear to auscultation no wheezing or crackles Heart- regular rate and rhythm; no murmur, no gallop. Abdomen- normal bowel sounds, soft, nontender, no distension Extremities-b/l lower extremity trace edema present, noerythema. Neuro- alert, oriented PERRL, no facial palsy; no dysarthria; moves extremities Results & Data Results & Data Vital Signs (Past 12 Hours) Vital Signs Temp Pulse Pulse Resp BP Pulse Ox O2 Del Method 04/28/24 15:00 36.6 C 76 18 116/58 L 96 Room Air 04/28/24 11:00 36.8 C 63 20 126/57 L 97 Room Air 04/28/24 09:02 Room Air 04/28/24 07:54 36.8 C 78 16 119/58 L 98 Room Air 04/28/24 07:30 68 04/28/24 03:54 36.4 C L 74 18 102/63 95 Room Air
[2024-04-29 06:21] LABS: BUN Creatinine Ratio 28.6 (10-20); Calcium 9.6 mg/dl (8.6-10.3); Creatinine Clr Calc Pharmacy 37.8 ml/min; Potassium 3.9 mmol/L (3.5-5.1)
--- NOTE | 2024-04-29 13:58 | Cardiology Progress Note ---
Date of Service April 29, 2024 Assessment & Plan (1) CAD (coronary artery disease): (2) S/P CABG x 2: (3) S/P coronary artery stent placement: (4) Elevated troponin: (5) Chest pain: (6) (HFpEF) heart failure with preserved ejection fraction: (7) Severe aortic stenosis: (8) Hyperlipidemia: (9) Hypertension: Plan ASSESSMENT/PLAN: 1. Heart failure with preserved EF: Acute on chronic this hospital stay. Has been receiving diuretics. Does not appear to be significantly hypervolemic currently. Can continue current outpatient dose of Bumex 3 mg daily. Low- sodium diet. I's and O's. Daily weights. 2. Aortic stenosis: Severe. Has been evaluated at [facility] [place] with coronary angiography pending. Patient would like to undergo the procedure here rather than be transported to [facility] to undergo the procedure and hospitalist service reportedly reached out to [facility] who would not accept patient in transfer for this diagnostic case. Risk and benefits of cardiac catheterization were discussed with her in detail and she would like to proceed. Previous records requested for review. 3. CAD s/p multiple PCI and CABG x 2: Details of her CABG are not well-known but at least 1 SVG per reports. Records requested for review from [facility], including CABG report and previous cardiac catheterization reports. Continue aspirin 81 mg daily. Continue beta-demar and statin therapy. Reports chest pain constantly, although troponin has since normalized. Her constant chest discomfort is not likely angina and has been reported in the past according to previous cardiology notes. 4. Chest pain: Seems to be constant despite downtrending and eventually normalizing high-sensitivity troponin. 5. Dyspnea on exertion: Could be attributed to her aortic stenosis, CAD, CHF. Does not appear to be significantly hypervolemic currently. 6. Elevated troponin: High-sensitivity troponin peaked at 216 on 04/22/2024, and has since normalized. Per records, presented with heart failure exacerbation. Likely demand ischemia in the setting of heart failure, documented CAD, and significant aortic stenosis. 7. Hypertension: Blood pressure reasonably controlled. Can continue current regimen. 8. Dyslipidemia: Consider high intensity statin therapy if no contraindication. Increase atorvastatin to 40 mg daily. 9. Disposition: Possible cardiac catheterization tomorrow. N.p.o. after midnight. Patient care communicated with primary hospitalist, Dr. Domingo. Admission and Anticipated Discharge Date Admission Date: April 22, [address] Brandon of the hospitalist team messaged yesterday in regards to performing cardiac catheterization. She is set up for a cardiac catheterization at [facility] at the end of the week but will not be able to keep the procedure as planned as she remains hospitalized. [facility] asked that she undergo the procedure here. She has substernal chest pressure which is constant without relief. It has been intermittently occurring for years. She has occasional shortness of breath at rest but otherwise dyspnea on exertion. She denies palpitations, syncope, near syncope, melena, hematochezia, hematuria, or edema. When discussing options, she very much wants to move forward with a cardiac catheterization here. She reports that her last cardiac catheterization was 2 or 3 years ago in [place]. She reports that she had a CABG x 2 in approximately 2016 and has had multiple PCI as well (prior to CABG per Dr. Xiao note on 12/06/20). She recalls having a vein harvest from her right lower extremity. She believes the CABG was performed [facility] in [place]. She has been seen by Dr. Oreilly in [place] but has transitioned her care to [facility] cardiology in approximately 2020. She was unaccompanied. Physical Exam Physical Exam: Gen.: No acute distress. Alert and oriented. HEENT: Anicteric sclera. Neck: No JVD. Cardiac: Regular. Normal S1-S2. 2/6 systolic ejection murmur. Pulmonary: Clear to auscultation bilaterally without wheezes, rales, or rhonchi. Abdomen: Soft, nontender, nondistended, with normoactive bowel sounds. No bruits noted. Extremities: 2+ radial pulses bilaterally. Trace bilateral lower extremity edema. No cyanosis. Results & Data Vital Signs (Past 12 Hours) Vital Signs Temp Pulse Pulse Resp BP Pulse Ox O2 Del Method 04/29/24 12:25 36.5 C 74 20 100/48 L 95 Room Air 04/29/24 11:32 64 04/29/24 09:00 Room Air 04/29/24 08:07 36.4 C L 71 20 105/66 95 Room Air 04/29/24 03:30 36.4 C L 73 14 125/76 96 Room Air Intake & Output 04/27/24 04/28/24 04/29/24 04/30/24 06:59 06:59 06:59 06:59 Intake Total 720 / 720 120 / 120 Output Total 1875 / 1875 1550 / 1550 1700 / 1700 Balance -1155 / -1155 -1430 / -1430 -1700 / -1700 -1 -1 Weight 185 lb 3.013 oz 186 lb 11.704 oz 186 lb 15.232 oz Laboratory Results Laboratory Results - last 24 hr 04/29/24 05:32 Sodium 136 Potassium 3.9 Chloride 102 Carbon Dioxide 25 Anion Gap 9 BUN 32 H Creatinine 1.12 Est Cr Clr Drug Dosing 37.8 eGFR 49.71 BUN/Creatinine Ratio 28.6 H Glucose 97 Calcium 9.6 Magnesium 2.0 Diagnostic Findings Telemetry reviewed: Sinus rhythm in the 60s to 70s today. Outpatient cardiology note reviewed. Echo report reviewed from 04/23/2024: Normal LV size, wall motion, systolic function. EF 65 to 70%. Moderate LVH. Severe aortic stenosis (PV 3.5; MG 27; CHELO 0.8; DI 0.25). Mild AI. Moderate MAC. Moderate MR. Records requested for review. ECG personally reviewed 04/28/2024 at 8:50 AM: Sinus rhythm 77 bpm. Poor R wave progression. Nonspecific ST/T wave abnormality. Prolonged QT. Medications Administered Current Inpatient Medications Acetaminophen (Acetaminophen 325 Mg Tab) 650 mg PO Q4H PRN PRN Reason: Pain or Fever Stop: 05/22/24 23:04 Last Admin: 04/29/24 11:03 Dose: 650 mg Aspirin (Aspirin 81 Mg Ectab) 81 mg PO DAILY [facility] Stop: 05/23/24 08:59 Last Admin: 04/29/24 09:09 Dose: 81 mg Atenolol (Atenolol 25 Mg Tablet) 25 mg PO BID [facility] Stop: 05/22/24 23:04 Last Admin: 04/29/24 09:10 Dose: 25 mg Atorvastatin Calcium (Atorvastatin 20 Mg Tab) 20 mg PO DAILY [facility] Stop: 05/23/24 08:59 Last Admin: 04/29/24 09:10 Dose: 20 mg Bumetanide (Bumetanide 1 Mg Tab) 3 mg PO DAILY [facility] Stop: 05/24/24 08:59 Last Admin: 04/29/24 09:09 Dose: 3 mg Clotrimazole (Clotrimazole 1% Cr 15 Gm Tube) 1 appln EXT BID [facility] Stop: 05/23/24 11:29 Last Admin: 04/29/24 09:10 Dose: 1 appln Duloxetine HCl (Duloxetine Hcl 30 Mg Cap) 30 mg PO DAILY [facility] Stop: 05/23/24 08:59 Last Admin: 04/29/24 09:09 Dose: 30 mg Enoxaparin Sodium (Enoxaparin Inj 40 Mg/0.4 Ml Syr) 40 mg SQ Q24H [facility] Stop: 05/22/24 23:04 Last Admin: 04/28/24 21:49 Dose: 40 mg Levothyroxine Sodium (Levothyroxine Sodium 137 Mcg Tablet) 137 mcg PO DAILYBB [facility] Stop: 05/23/24 06:29 Last Admin: 04/29/24 06:28 Dose: 137 mcg Lidocaine (Lidocaine 5% 1 Patch) 1 patch TD DAILY PRN PRN Reason: Pain Stop: 05/22/24 23:04 Miscellaneous (Remove Lidoderm Patch) 1 each N/A DAILY@2100 [facility] Stop: 05/22/24 23:04 Last Admin: 04/28/24 21:50 Dose: Not Given Oxybutynin Chloride (Oxybutynin Chloride Xl 5 Mg Tabcr) 10 mg PO DAILY [facility] Stop: 05/23/24 08:59 Last Admin: 04/29/24 09:08 Dose: 10 mg Pantoprazole Sodium (Pantoprazole 40 Mg Tab) 40 mg PO DAILY [facility] Stop: 05/23/24 08:59 Last Admin: 04/29/24 09:07 Dose: 40 mg Polyethylene Glycol (Polyethylene (Miralax) 17 Gm Pack) 17 gm PO DAILY PRN PRN Reason: Constipation Stop: 05/22/24 23:04 Potassium Chloride (Potassium Chloride Crtab 20 Meq Tabcr) 20 meq PO DAILY [facility] Stop: 05/23/24 08:59 Last Admin: 04/29/24 09:13 Dose: 20 meq Trazodone HCl (Trazodone Hcl 50 Mg Tab) 150 mg PO HS [facility] Stop: 05/22/24 23:04 Last Admin: 04/28/24 21:49 Dose: 150 mg PG Care Time/CCT Total # of Minutes Spent Total Time Spent with Patient: Total time spent is greater than 50% in coordination of care (as documented) at patient's floor/unit and/or counseling patient: Coding Level of Care Code 26847 SUB INP/OBS CARE 350MIN Diagnoses Coronary artery disease involving ass[place] and si[place] coronary artery of assin[place] and sioux heart without angina pectoris I25.10 Coronary Disease-Associated Artery/Lesion type: [place] artery [place] vs. transplanted heart: assin[place] and sioux heart Associated angina: without angina S/P CABG x 2 Z95.1 S/P coronary artery stent placement Z95.5 Elevated troponin R79.89 Chest pain R07.9 Chest pain type: unspecified Acute on chronic heart failure with preserved ejection fraction I50.33 Heart failure chronicity: acute on chronic Severe aortic stenosis I35.0 Hyperlipidemia, unspecified hyperlipidemia type E78.5 Hyperlipidemia type: unspecified Hypertension I10 (1) CAD (coronary artery disease) Coronary Disease-Associated Artery/Lesion type: [place] artery [place] vs. transplanted heart: ass[place] and sioux heart Associated angina: without angina Qualified Code(s): I25.10 - Atherosclerotic heart disease of [place] and [place] coronary artery without angina pectoris (5) Chest pain Chest pain type: unspecified Qualified Code(s): R07.9 - Chest pain, unspecified (6) (HFpEF) heart failure with preserved ejection fraction Heart failure chronicity: acute on chronic Qualified Code(s): I50.33 - Acute on chronic diastolic (congestive) heart failure (8) Hyperlipidemia Hyperlipidemia type: unspecified Qualified Code(s): E78.5 - Hyperlipidemia, unspecified
--- NOTE | 2024-04-29 15:19 | Hospitalist Progress Note ---
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 she is being managed for th e following: Acute Exacerbation of HFpEF History of severe aortic stenosis Patient presenting with complaint of progressive shortness of breath associated with chest discomfort and lower extremity edema. Patient reports compliance with home p.o. Bumex and cardiac medication. Echo this admission: EF of 65 to 70%, grade 1 diastolic dysfunction, severe valvular aortic stenosis. Left ventricular wall motion is normal. Cardiology evaled, pt transitioned to home bumex 04/24, recommends she markedly restrict activity (could use a wheelchair to take her to dinner) until TAVR which is planned later this month at [facility]. Strict I's and O's, fluid restriction of 1.8 L/day, monitor replete electrolytes, continue telemetry monitoring, Sparks catheter for I's and O's. Follow-up with cardiology, and [facility] for TAVR upon discharge. She has [facility] appt on May 01 w/ Dr. Crespo for Coronary Angiography. Previous hospitalist communicated with [facility] 04/28 for possible transfer on 04/30 as pt is not being able to be discharged due to social issues.After discussion with the automotive quality engineer on-call; it was confirmed that patient was going to have coronary angiogram as part of the TAVR workup. Cardiology team at [facility] requested if patient can go coronary angiogram while patient is here. It was communicated with on-call cardiology. Chest pains, Likely demand ischemia ISO severe aortic stenosis Troponin elevated, flat trend, EKG with no acute finding, echo as above. Cardiology evaluated, appreciate recommendation. Continue telemetry. chest pain resolved. Other chronic medical conditions: Continue with/resume home meds as and when able. History of CAD status post CABG and stents: On aspirin, atorvastatin, atenolol History of sleep apnea: Patient says she is not using CPAP currently seems she do not have supplies. Needs help with a new CPAP, reached out to for assistance. Hypothyroidism: On Synthyroid DVT prophylaxis: Lovenox Disposition:Telemetry. Social issue hindering discharge. Case management on board Full code. Please note the above document was generated using voice recognition software. It may contain grammatical, syntax or spelling errors. Any formal questions or concerns about the content, text or information contained within the body of this dictation should be directly addressed to the provider for clarification Admission and Anticipated Discharge Date Admission Date: April 22, 2024 Subjective Patient seen and examined at bedside. She is sitting up on the chair at the side of the bed; not in distress Vital signs remained stable; no significant events overnight Review of Systems Review of Systems: All systems reviewed & are unremarkable except as noted in Subjective Physical Exam Physical Exam: General-Not in distress. Head- atraumatic Eyes- PERRL. ENT- oropharynx clear Neck- supple, no JVD. Lungs- clear to auscultation no wheezing or crackles Heart- regular rate and rhythm; no murmur, no gallop. Abdomen- normal bowel sounds, soft, nontender, no distension Extremities-b/l lower extremity trace edema present, noerythema. Neuro- alert, oriented PERRL, no facial palsy; no dysarthria; moves extremities Results & Data Results & Data Vital Signs (Past 12 Hours) Vital Signs Temp Pulse Pulse Resp BP Pulse Ox O2 Del Method 04/29/24 12:25 36.5 C 74 20 100/48 L 95 Room Air 04/29/24 11:32 64 04/29/24 09:00 Room Air 04/29/24 08:07 36.4 C L 71 20 105/66 95 Room Air 04/29/24 03:30 36.4 C L 73 14 125/76 96 Room Air
--- NOTE | 2024-04-29 17:13 | Electrocardiogram Report ---
Test Reason : Blood Pressure : */* mmHG Vent. Rate : 77 BPM Atrial Rate : 77 BPM P-R Int : 192 ms QRS Dur : 96 ms QT Int : 448 ms P-R-T Axes : 52 2 96 degrees QTcB Int : 508 ms Normal sinus rhythm Possible Left atrial enlargement Nonspecific ST and T wave abnormality Septal infarct Prolonged QT Abnormal ECG When compared with ECG of 24-Apr-2024 05:38, No significant change Confirmed by Hunter Siegel ([id number]) on 04/29/2024 5:13:08 PM Referred By: REFERRED SELF Confirmed By: Hunter Siegel
[2024-04-30 06:06] LABS: Basophils # (auto) 0.04 K/uL (0.00-0.20); Basophils % (auto) 0.5 %; Eosinophils # (auto) 0.24 K/uL (0.00-0.50); Eosinophils % (auto) 2.8 %; Hematocrit (blood only) 38.9 % (37.0-47.0); Immature Granulocytes # (auto) 0.02 K/uL (0.01-0.20); Immature Granulocytes % (auto) 0.2 %; Lymphocytes # (auto) 2.02 K/uL (1.20-3.40); Lymphocytes % (auto) 23.4 %; Mean Corpuscular Hemoglobin 29.3 pg (25.0-34.0); Mean Corpuscular Hgb Conc 33.4 g/dL (32.0-36.0); Mean Corpuscular Volume 87.8 fL (80.0-100.0); Mean Platelet Volume 11.4 fL (9.4-12.4); Monocytes # (auto) 0.68 K/uL (0.11-0.59); Monocytes % (auto) 7.9 %; Neutrophils # (auto) 5.64 K/uL (1.40-6.50); Neutrophils % (auto) 65.2 %; Platelet Count 233 K/uL (130-400); RDW Coefficient of Variation 13.9 % (11.5-14.5); RDW Standard Deviation 44.4 fL (36.4-46.3); Red Blood Count 4.43 M/uL (4.20-5.40); White Blood Count 8.64 K/ul (4.8-10.8)
[2024-04-30 06:18] LABS: BUN Creatinine Ratio 29.2 (10-20); Calcium 9.8 mg/dl (8.6-10.3); Potassium 3.9 mmol/L (3.5-5.1)
[2024-04-30] MEDS: ATORVASTATIN 40 MG TAB PO SCH (09:10)
--- NOTE | 2024-04-30 10:27 | Hospitalist Progress Note ---
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 she is being managed for th e following: Acute Exacerbation of HFpEF History of severe aortic stenosis Patient presenting with complaint of progressive shortness of breath associated with chest discomfort and lower extremity edema. Patient reports compliance with home p.o. Bumex and cardiac medication. Echo this admission: EF of 65 to 70%, grade 1 diastolic dysfunction, severe valvular aortic stenosis. Left ventricular wall motion is normal. Cardiology evaled, pt transitioned to home bumex 04/24, recommends she markedly restrict activity (could use a wheelchair to take her to dinner) until [place]R which is planned later this [place] [facility] Strict I's and O's, fluid restriction of 1.8 L/day, monitor replete electrolytes, continue telemetry monitoring, Sparks catheter for I's and O's. Follow-up with cardiology, and [facility] for TAVR upon discharge. She has [facility] appt on May 01 w/ Dr. Crespo for Coronary Angiography. Previous hospitalist communicated with [facility] [place] for possible transfer on 04/30 as pt is not being able to be discharged due to social issues.After discussion with the gymnastics instructor on-call; it was confirmed that patient was going to have coronary angiogram as part of the TAVR workup. Cardiology team at [facility] requested if patient can go coronary angiogram while patient is here. Evaluated by cardiology; plan for possible cardiac cath today. Chest pains, Likely demand ischemia ISO severe aortic stenosis Troponin elevated, flat trend, EKG with no acute finding, echo as above. Cardiology evaluated, Lipitor increased to 40mg once a day, continue on aspirin and atenolol. Continue telemetry. Other chronic medical conditions: Continue with/resume home meds as and when able. History of CAD status post CABG and stents: On aspirin, atorvastatin, atenolol History of sleep apnea: Patient says she is not using CPAP currently seems she do not have supplies. Needs help with a new CPAP, reached out to for assista nce. Hypothyroidism: On Synthyroid DVT prophylaxis: Lovenox Disposition:Telemetry. Social issue hindering discharge. Case management on board. Plan for cardiac cath today as per cardiology. Full code. Please note the above document was generated using voice recognition software. It may contain grammatical, syntax or spelling errors. Any formal questions or concerns about the content, text or information contained within the body of this dictation should be directly addressed to the provider for clarification Admission and Anticipated Discharge Date Admission Date: April 22, 2024 Subjective Patient seen and examined at bedside. She reports some chest discomfort on her left side. Reports that this is slightly increased on deep inspiration. Vital signs are stable. No significant events overnight Review of Systems Review of Systems: All systems reviewed & are unremarkable except as noted in Subjective Physical Exam Physical Exam: General-Not in distress. Head- atraumatic Eyes- PERRL. ENT- oropharynx clear Neck- supple, no JVD. Lungs- clear to auscultation no wheezing or crackles Heart- regular rate and rhythm; no murmur, no gallop. Abdomen- normal bowel sounds, soft, nontender, no distension Extremities-b/l lower extremity trace edema present, noerythema. Neuro- alert, oriented PERRL, no facial palsy; no dysarthria; moves extremities Results & Data Results & Data Vital Signs (Past 12 Hours) Vital Signs Temp Pulse Pulse Resp BP Pulse Ox O2 Del Method 04/30/24 08:31 36.4 C L 69 20 102/53 L 93 Room Air 04/30/24 03:55 36.4 C L 76 18 120/73 93 Room Air 04/29/24 23:46 36.3 C L 74 18 100/63 94 Room Air 04/29/24 23:15 Room Air 04/29/24 23:14 77
[2024-04-30 12:35] LABS: Troponin I High Sensitivity 10.4 pg/ml (0-14)
--- NOTE | 2024-04-30 13:46 | Cardiology Progress Note ---
Date of Service April 30, 2024 Assessment & Plan (1) CAD (coronary artery disease): (2) S/P CABG x 2: (3) S/P coronary artery stent placement: (4) Elevated troponin: (5) Chest pain: (6) (HFpEF) heart failure with preserved ejection fraction: (7) Severe aortic stenosis: (8) Hyperlipidemia: (9) Hypertension: Plan ASSESSMENT/PLAN: 1. Heart failure with preserved EF: Acute on chronic this hospital stay. Appears compensated now. Has been receiving diuretics. Does not appear to be significantly hypervolemic currently. Can continue current outpatient dose of Bumex 3 mg daily. Low-sodium diet. I's and O's. Daily weights. 2. Aortic stenosis: Severe. Has been evaluated at [facility] for TAVR with coronary angiography pending. Underwent diagnostic coronary angiography today in anticipation of TAVR. Images will be sent electronically to [facility]. 3. CAD s/p multiple PCI and CABG x 2 (HENDRIX to LAD; SVG to PDA): No obvious angina. Has atypical chest pain constantly and despite this, normalized high- sensitivity troponin levels on 04/28/2024 and 04/30/2024. Continue aspirin 81 mg daily. Continue beta-demar and statin therapy. HENDRIX to LAD and SVG to PDA are patent. Otherwise, severe multivessel CAD involving left main, LAD, circumflex, RCA. Her circumflex is not bypassed. Her constant chest discomfort is not likely angina and has been reported in the past according to previous cardiology notes. 4. Chest pain: Seems to be constant despite downtrending and eventually normalizing high-sensitivity troponin. Not likely cardiac in nature. 5. Dyspnea on exertion: Could be attributed to her aortic stenosis, CAD, CHF. Does not appear to be significantly hypervolemic currently. 6. Elevated troponin: High-sensitivity troponin peaked at 216 on 04/22/2024, and has since normalized. Per records, presented with heart failure exacerbation. Likely demand ischemia in the setting of heart failure, documented CAD, and significant aortic stenosis. 7. Hypertension: Blood pressure reasonably reasonably controlled. Can continue current regimen. 8. Dyslipidemia: Consider high intensity statin therapy if no contraindication. Increased atorvastatin to 40 mg daily. 9. Disposition: Please call on-call cardiology with any further questions or concerns. Cardiology will sign off at this time. Patient care communicated with primary hospitalist, Dr. Domingo. Her son, Gabino, was contacted via telephone prior to the cardiac catheterization as per her request. He agreed with her consent to undergo the procedure. He was called following the procedure to update him on the findings, but he did not answer. Findings were discussed with patient. Admission and Anticipated Discharge Date Admission Date: April 22, 2024 Subjective She continues to have chest pain constantly, without relief. She denies shortness of breath, syncope, near syncope, edema, or bleeding. She would like to go through with diagnostic coronary angiography in anticipation of TAVR at [facility]. She asked that her son, Gabino, be contacted before and after the procedure. Physical Exam Physical Exam: Gen.: No acute distress. Alert and oriented. HEENT: Anicteric sclera. Neck: No JVD. Cardiac: Regular. Normal S1-S2. 2/6 late peaking systolic ejection murmur. Pulmonary: Clear to auscultation bilaterally without wheezes, rales, or rhonchi. Abdomen: Soft, nontender, nondistended, with normoactive bowel sounds. No bruits noted. Extremities: 2+ radial pulses bilaterally. Trace bilateral lower extremity edema. No cyanosis. Results & Data Vital Signs (Past 12 Hours) Vital Signs Temp Pulse Pulse Resp BP Pulse Ox O2 Del Method 04/30/24 12:14 36.5 C 62 18 115/63 91 Room Air 04/30/24 08:31 36.4 C L 69 20 102/53 L 93 Room Air 04/30/24 08:03 68 04/30/24 08:00 Room Air 04/30/24 03:55 36.4 C L 76 18 120/73 93 Room Air Intake & Output 04/28/24 04/29/24 04/30/24 05/01/24 06:59 06:59 06:59 06:59 Intake Total 120 / 120 440 / 440 Output Total 1550 / 1550 1700 / 1700 951 / 951 Balance -1430 / -1430 -1700 / -1700 -511 / -511 Weight 186 lb 11.704 oz 186 lb 15.232 oz 192 lb 0.362 oz Laboratory Results Laboratory Results - last 24 hr 04/30/24 05:25 WBC 8.64 RBC 4.43 Hgb 13.0 Hct 38.9 MCV 87.8 MCH 29.3 MCHC 33.4 RDW Std Deviation 44.4 RDW Coeff of Vy 13.9 Plt Count 233 MPV 11.4 Immature Gran % (Auto) 0.2 Neut % (Auto) 65.2 Lymph % (Auto) 23.4 [place] % (Auto) 7.9 Eos % (Auto) 2.8 Baso % (Auto) 0.5 Neut # (Auto) 5.64 Lymph # (Auto) 2.02 [place] # (Auto) 0.68 H Eos # (Auto) 0.24 Baso # (Auto) 0.04 Immature Gran # (Auto) 0.02 Sodium 138 Potassium 3.9 Chloride 103 Carbon Dioxide 27 Anion Gap 8 BUN 31 H Creatinine 1.06 Est Cr Clr Drug Dosing 40.0 eGFR 53.11 BUN/Creatinine Ratio 29.2 H Glucose 99 Calcium 9.8 Troponin I High Sens 10.4 Diagnostic Findings Telemetry personally reviewed: Sinus rhythm. No arrhythmia. Labs reviewed and notable for stable renal function. ECG personally reviewed 04/30/2024: Sinus rhythm [address]/T wave abnormality. Prolonged QT. [facility] records have been requested, obtained, and reviewed. Cardiac Cath 04/30/2024: Coronary angiography: 1. Left main: Distal LM 80%. Calcifications noted. 2. Left anterior descending: Severe CAD involving the ostial LAD extending from the left main. Proximal LAD 80% at the proximal portion of previously stented proximal to mid LAD. Mid LAD stent 90% in-stent restenosis. Competitive flow noted within the distal LAD. Medium caliber D1 proximal 80%. CHARLA-3 flow. Small D2. 3. Circumflex: Ostial circumflex 70% with calcifications noted. Distal circumflex 70%. Very small OM1 and OM 2. OM 3 proximal 50%. Medium caliber OM 4. 4. Right coronary artery: Dominant vessel. Ostial/proximal RCA stent with proximal 98% in-stent restenosis. Mid RCA 95+ percent. Remainder of the RCA is moderately to severely and diffusely diseased. Competitive flow noted distally. Bypass graft angiography: 1. HENDRIX to LAD: Patent. 2. SVG to PDA: Patent. Retrograde flow to the distal RCA and PL branch. Ostial PDA 80%. Medications Administered Current Inpatient Medications Acetaminophen (Acetaminophen 325 Mg Tab) 650 mg PO Q4H PRN PRN Reason: Pain or Fever Stop: 05/22/24 23:04 Last Admin: 04/30/24 09:13 Dose: 650 mg Aspirin (Aspirin 81 Mg Ectab) 81 mg PO DAILY CALLIE Stop: 05/23/24 08:59 Last Admin: 04/30/24 09:08 Dose: 81 mg Atenolol (Atenolol 25 Mg Tablet) 25 mg PO BID CALLIE Stop: 05/22/24 23:04 Last Admin: 04/30/24 09:08 Dose: 25 mg Atorvastatin Calcium (Atorvastatin 40 Mg Tab) 40 mg PO DAILY CALLIE Stop: 05/30/24 08:59 Last Admin: 04/30/24 09:10 Dose: 40 mg Bumetanide (Bumetanide 1 Mg Tab) 3 mg PO DAILY CALLIE Stop: 05/24/24 08:59 Last Admin: 04/30/24 09:09 Dose: 3 mg Clotrimazole (Clotrimazole 1% Cr 15 Gm Tube) 1 appln EXT BID CALLIE Stop: 05/23/24 11:29 Last Admin: 04/30/24 09:10 Dose: 1 appln Duloxetine HCl (Duloxetine Hcl 30 Mg Cap) 30 mg PO DAILY CALLIE Stop: 05/23/24 08:59 Last Admin: 04/30/24 09:09 Dose: 30 mg Enoxaparin Sodium (Enoxaparin Inj 40 Mg/0.4 Ml Syr) 40 mg SQ Q24H CALLIE Stop: 05/22/24 23:04 Last Admin: 04/29/24 20:08 Dose: 40 mg Levothyroxine Sodium (Levothyroxine Sodium 137 Mcg Tablet) 137 mcg PO DAILYBB CALLIE Stop: 05/23/24 06:29 Last Admin: 04/30/24 05:57 Dose: 137 mcg Lidocaine (Lidocaine 5% 1 Patch) 1 patch TD DAILY PRN PRN Reason: Pain Stop: 05/22/24 23:04 Miscellaneous (Remove Lidoderm Patch) 1 each N/A DAILY@2100 [facility] Stop: 05/22/24 23:04 Last Admin: 04/29/24 20:09 Dose: Not Given Oxybutynin Chloride (Oxybutynin Chloride Xl 5 Mg Tabcr) 10 mg PO DAILY CALLIE Stop: 05/23/24 08:59 Last Admin: 04/30/24 09:10 Dose: 10 mg Pantoprazole Sodium (Pantoprazole 40 Mg Tab) 40 mg PO DAILY CALLIE Stop: 05/23/24 08:59 Last Admin: 04/30/24 09:10 Dose: 40 mg Polyethylene Glycol (Polyethylene (Miralax) 17 Gm Pack) 17 gm PO DAILY PRN PRN Reason: Constipation Stop: 05/22/24 23:04 Potassium Chloride (Potassium Chloride Crtab 20 Meq Tabcr) 20 meq PO DAILY CALLIE Stop: 05/23/24 08:59 Last Admin: 04/30/24 09:13 Dose: 20 meq Trazodone HCl (Trazodone Hcl 50 Mg Tab) 150 mg PO HS CALLIE Stop: 05/22/24 23:04 Last Admin: 04/29/24 20:07 Dose: 150 mg PG Care Time/CCT Total # of Minutes Spent Total Time Spent with Patient: Total time spent is greater than 50% in coordination of care (as documented) at patient's floor/unit and/or counseling patient: Coding Level of Care Code 44417 SUB INP/OBS CARE 3/50MIN Diagnoses Coronary artery disease involving marshall coronary artery of marshall heart without angina pectoris I25.10 Associated angina: without angina Coronary Disease-Associated Artery/Lesion type: marshall artery [place] vs. transplanted heart: marshall heart S/P CABG x 2 Z95.1 S/P coronary artery stent placement Z95.5 Elevated troponin R79.89 Chest pain R07.9 Chest pain type: unspecified Acute on chronic heart failure with preserved ejection fraction I50.33 Heart failure chronicity: acute on chronic Severe aortic stenosis I35.0 Hyperlipidemia, unspecified hyperlipidemia type E78.5 Hyperlipidemia type: unspecified Hypertension I10 (1) CAD (coronary artery disease) Associated angina: without angina Coronary Disease-Associated Artery/Lesion type: marshall artery [place] vs. transplanted heart: marshall heart Qualified Code(s): I25.10 - Atherosclerotic heart disease of marshall coronary artery without angina pectoris (5) Chest pain Chest pain type: unspecified Qualified Code(s): R07.9 - Chest pain, unspecified (6) (HFpEF) heart failure with preserved ejection fraction Heart failure chronicity: acute on chronic Qualified Code(s): I50.33 - Acute on chronic diastolic (congestive) heart failure (8) Hyperlipidemia Hyperlipidemia type: unspecified Qualified Code(s): E78.5 - Hyperlipidemia, unspecified
--- NOTE | 2024-04-30 14:29 | Pre Anesthesia Assessment ---
Date of Service April 30, 2024 Pre Sedation Assessment Vital Signs Temp Pulse Pulse Resp BP Pulse Ox O2 Del Method 04/30/24 14:04 36.6 C 68 18 104/58 L 96 Room Air 04/30/24 12:14 36.5 C 62 18 115/63 91 Room Air 04/30/24 08:31 36.4 C L 69 20 102/53 L 93 Room Air 04/30/24 08:03 68 04/30/24 08:00 Room Air 04/30/24 03:55 36.4 C L 76 18 120/73 93 Room Air 04/29/24 23:46 36.3 C L 74 18 100/63 94 Room Air 04/29/24 23:15 Room Air 04/29/24 23:14 77 04/29/24 19:16 36.8 C 75 18 119/67 92 Room Air 04/29/24 17:52 67 04/29/24 16:34 36.5 C 97 H 18 113/66 99 Room Air Cardiovascular + regular rate + murmur Respiratory normal respiratory effort, lungs clear to auscultation Pre-Sedation Airway Assessment Smoking Status: Never smoker Hx Sleep Apnea: No Short, Thick Neck: Yes Thyromental Distance: > or= 3.5 Finger Breadths Oral Cavity: + WNL Mallampati Class: III ASA: ASA3 NPO Status Date of Last Intake of Fluids: 04/30/24 Time of Last Intake of Fluids: 07:00 Date of Last Intake of Solid Food: 04/29/24 Time of Last Intake of Solid Foods: 21:00 Procedure Planning Contraindications for Sedation: none Current Medications Reviewed: Yes Notes The planned sedation has been discussed with the patient. Informed Consent was obtained. I have identified the patient, determined the appropriateness of sedation and have assessed the patient immediately prior to the procedure. All medicine(s) and interventions are by my order.
[2024-04-30] MEDS: niCARdipine 2,000 MCG/20 ML SYR ONE (14:43)
[2024-04-30] MEDS: NITROGLYCERIN/D5W 100MCG/ML 20ML SYR ONE (14:44)
[2024-04-30] MEDS: MIDAZOLAM HCL 1 MG/ML 2ML VIAL ONE (16:04)
[2024-04-30] MEDS: fentaNYL citrate PF 100 MCG/2 ML VIAL ONE (16:04)
[2024-04-30] MEDS: HEPARIN (PORCINE) 1000 UNIT/ML 10 ML (CATH LAB USE ONLY) ONE (16:04)
[2024-04-30] MEDS: IODIXANOL (VISIPAQUE) 320 MG/ML 100ML IV ONE (16:05)
--- NOTE | 2024-04-30 16:06 | Cardiac Catheterization ---
[facility] Data: Hospice Patient Care Secretary Cardiac Status Clinical evaluation leading to the procedure CAD Presenation: No Sxs, No angina Anginal Classification: No Symptoms Heart Failure: NYHA Class: CCS III Cardiogenic Shock within 24 Hours: No Cardiac Arrest within 24 Hours: No Imaging Studies Past 6 Months: Yes Stress Studies Past 6 Months: No Coronary Anatomy Dominant: Right Diagnostic Physicians Name: Hunter Siegel MD Closure Device Percutaneous Entry Location: Femoral Closure Device: None-Manual Hold Recommendations: Valve Replacement Cardiac Cath Procedure Full Procedure Date April 30, 2024 Pre-Procedure Diagnosis Pre-Procedure Diagnosis: CAD and Valvular Disease AUC Score AUC Score: 7 Post-Procedure Diagnosis Post-Procedure Diagnosis: Severe CAD Procedure(s) Performed Procedure(s) Performed: Coronary Angiography and Ultrasound Guided Vascular Access Channel Sales Manager Hunter Siegel MD Acid Adjuster(s) Deonna Estimated Blood Loss Estimated Blood Loss: < 30 ml Medication(s) Medication(s): Fentanyl, Lidocaine 1% and Versed Summary of Findings Procedures: 1. Coronary angiography 2. Ultrasound guidance for vascular access 3. Moderate sedation Indication: Ms. Pham is an 78-year-old female with a history significant for CAD s/p CABG x 2 and multiple PCI. She was diagnosed with severe aortic stenosis and is pending TAVR. Coronary angiography: 1. Left main: Distal LM 80%. Calcifications noted. 2. Left anterior descending: Severe CAD involving the ostial LAD extending from the left main. Proximal LAD 80% at the proximal portion of previously stented proximal to mid LAD. Mid LAD stent 90% in-stent restenosis. Competitive flow noted within the distal LAD. Medium caliber D1 proximal 80%. CHARLA-3 flow. Small D2. 3. Circumflex: Ostial circumflex 70% with calcifications noted. Distal circumflex 70%. Very small OM1 and OM 2. OM 3 proximal 50%. Medium caliber OM 4. 4. Right coronary artery: Dominant vessel. Ostial/proximal RCA stent with proximal 98% in-stent restenosis. Mid RCA 95+ percent. Remainder of the RCA is moderately to severely and diffusely diseased. Competitive flow noted distally. Bypass graft angiography: 1. HENDRIX to LAD: Patent. 2. SVG to PDA: Patent. Retrograde flow to the distal RCA and PL branch. Ostial PDA 80%. Ultrasound guidance for vascular access: 1. Ultrasound was used to visualize the left radial artery and with ultrasound guidance, access needle was used to access the artery. Wire was unable to be sufficiently advanced to place the sheath. 2. Ultrasound was used to visualize the left ulnar artery which appeared. Once again under ultrasound guidance, the access needle was used to successfully access the left ulnar artery, but the wire did not pass easily. 3. Ultrasound guidance was used to visualize the right femoral artery. Under ultrasound guidance, the access needle successfully accessed the right femoral artery and over a wire, a 5 Israeli sheath was placed without known complication. Moderate sedation: 1. Sedation start time: 2:57 PM 2. Sedation end time: 3:59 PM Impression: 1. Severe multivessel CAD involving the left main, LAD, circumflex, and RCA, including in-stent restenosis of the LAD and RCA. 2. Patent HENDRIX to LAD and SVG to PDA. 3. Previously documented significant aortic stenosis. There was no attempt to cross the aortic valve. Plan: 1. She has been seen at [facility] for TAV[place]. Coronary angiography images will be sent to [facility]. 2. Risk factor modification. Hemodynamics Rest Ao:: 104/51 Final Ao: 145/58 LV: n/a Recommendations Recommendations: Valve Replacement Specimens Specimens: None Radiation Exposure (mGy) 2113 mGy. Fluoro time 10.8 Contrast (mls) 80 Procedural Complication(s) None Disposition PCU I attest to the content of the Intraoperative Record and any orders documented therein. Any exceptions are noted below. [facility] Card Cath Procedure Codes Cardiac Catheterization Procedure 1: Cardiovascular Cath Procedures: 64016 Coronaries and Grafts/IM (venous & atrial) Therapeutic Services & Ancillary Procedure 1: Cardiovascular Tx and Anc Procedures: 42939 Ultrasonic Guidance Vascular Access Moderate Sedation Procedure 1: Sedation/Anesthesia: 67420 Mod Sedation by the same physician;Init15 Min Child Age 5 & Up Procedure 2: Sedation/Anesthesia: 28864 Mod Sedation by the same physician; Ea [id number] Minutes Procedure 3: Sedation/Anesthesia: 51968 Mod Sedation by the same physician; Ea [id number] Minutes Procedure 4: Sedation/Anesthesia: 75293 Mod Sedation by the same physician; Ea [id number] Minutes Procedure 5: Sedation/Anesthesia: 59636 Mod Sedation by the same physician; Ea [id number] Minutes PG Care Time/CCT Total # of Minutes Spent Total Time Spent with Patient: Total time spent is greater than 50% in coordination of care (as documented) at patient's floor/unit and/or counseling patient:
--- NOTE | 2024-04-30 16:16 | Post Anesthesia Assessment ---
Date of Service April 30, 2024 Post Sedation Assessment Vital Signs Temp Pulse Pulse Resp BP Pulse Ox O2 Del Method 04/30/24 14:04 36.6 C 68 18 104/58 L 96 Room Air 04/30/24 12:14 36.5 C 62 18 115/63 91 Room Air 04/30/24 08:31 36.4 C L 69 20 102/53 L 93 Room Air 04/30/24 08:03 68 04/30/24 08:00 Room Air 04/30/24 03:55 36.4 C L 76 18 120/73 93 Room Air 04/29/24 23:46 36.3 C L 74 18 100/63 94 Room Air 04/29/24 23:15 Room Air 04/29/24 23:14 77 04/29/24 19:16 36.8 C 75 18 119/67 92 Room Air 04/29/24 17:52 67 04/29/24 16:34 36.5 C 97 H 18 113/66 99 Room Air Recovery Score Activity: Moves 4 extremities Respiration: Deep Breath/Cough Circulation: +/-20% PreAnes Value Consciousness: Fully Awake Oxygen Saturation: > 92% On Room Air Discharge Sedation Level of Care: Fast Track Phase II Post Sedation Plan On clinical assessment, the patient appears to have tolerated the sedation without complications. Patient is recovering as anticipated. Patient will continue to be monitored by nursing and may be discharged when sedation discharge criteria are met per below protocol. Upon Completions of procedure up to 15 minutes continue every 5 minute vital signs and the P.A.R. score; then discharge to a Phase I or Fast Track to Phase II per the following guidelines: * Discharge Patient to appropriate Phase II area if PAR is 8 or greater or return to pre- procedure baseline. The post - procedure orders will be as directed. * If PAR score is less than 8 or not return to pre-procedure baseline then patient will follow Phase I monitoring till PAR is reached for Phase II. The Phase I may be done in procedure room or may call to secure a Phase I area. * If naloxone or flumazenil are used for reversal, hold in Phase I for continued monitoring from when last reversal dose was given for a minimum of 60 minutes or longer pending the nurse and/or physician discretion of patient condition before discharge to Phase II. Please call the Sedation Physician to re-evaluate and complete post-note for discharge to Phase II area. Do NOT discharge from procedure sedation or Phase 1 until post- sedation corinna luation note is complete by procedure /sedation MD Sedation Discharge Instructions to be given to the patient at discharge to home.
[2024-04-30] MEDS: LIDOCAINE 1% LOCAL 20 ML VIAL ONE (17:33)
[2024-04-30] MEDS: ACETAMINOPHEN 1,000 MG/100 ML VIAL IV STA (21:31)
--- NOTE | 2024-04-30 21:44 | Electrocardiogram Report ---
Test Reason : Blood Pressure : */* mmHG Vent. Rate : 64 BPM Atrial Rate : 64 BPM P-R Int : 200 ms QRS Dur : 98 ms QT Int : 484 ms P-R-T Axes : 50 -19 108 degrees QTcB Int : 499 ms Normal sinus rhythm Nonspecific ST and T wave abnormality Prolonged QT Abnormal ECG When compared with ECG of 28-Apr-2024 08:50, Nonspecific T wave abnormality no longer evident in Inferior leads Confirmed by Hunter Siegel ([id number]) on 04/30/2024 9:44:08 PM Referred By: REFERRED SELF Confirmed By: Hunter Siegel
[2024-05-01 06:29] LABS: Basophils # (auto) 0.02 K/uL (0.00-0.20); Basophils % (auto) 0.2 %; Eosinophils # (auto) 0.21 K/uL (0.00-0.50); Eosinophils % (auto) 2.6 %; Hematocrit (blood only) 39.5 % (37.0-47.0); Hemoglobin 13.3 g/dl (12.0-16.0); Immature Granulocytes # (auto) 0.03 K/uL (0.01-0.20); Immature Granulocytes % (auto) 0.4 %; Lymphocytes # (auto) 1.68 K/uL (1.20-3.40); Lymphocytes % (auto) 20.7 %; Mean Corpuscular Hemoglobin 29.6 pg (25.0-34.0); Mean Corpuscular Hgb Conc 33.7 g/dL (32.0-36.0); Mean Platelet Volume 11.4 fL (9.4-12.4); Monocytes # (auto) 0.68 K/uL (0.11-0.59); Monocytes % (auto) 8.4 %; Neutrophils % (auto) 67.7 %; Platelet Count 228 K/uL (130-400); RDW Coefficient of Variation 13.8 % (11.5-14.5); RDW Standard Deviation 44.6 fL (36.4-46.3); Red Blood Count 4.49 M/uL (4.20-5.40); White Blood Count 8.12 K/ul (4.8-10.8)
[2024-05-01 06:39] LABS: Calcium 9.6 mg/dl (8.6-10.3); Creatinine Clr Calc Pharmacy 42.1 ml/min; Potassium 3.6 mmol/L (3.5-5.1)
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
--- NOTE | 2024-05-01 10:58 | Cardiology Progress Note ---
Date of Service May 01, 2024 Assessment & Plan (1) CAD (coronary artery disease): (2) S/P CABG x 2: (3) S/P coronary artery stent placement: (4) Elevated troponin: (5) Chest pain: (6) (HFpEF) heart failure with preserved ejection fraction: (7) Severe aortic stenosis: (8) Hyperlipidemia: (9) Hypertension: Plan ASSESSMENT/PLAN: 1. Heart failure with preserved EF: Acute on chronic this hospital stay. Appears euvolemic now. Has been receiving po diuretics. Can continue current outpatient dose of Bumex 3 mg daily. Low-sodium diet. I's and O's. Daily weights. 2. Aortic stenosis: Severe. Has been evaluated at [facility] for [place] with coronary angiography pending. Underwent diagnostic coronary angiography today in anticipation of TAVR. Images sent electronically to [facility]. She expressed interest today in having her TAVR done at [facility] as it is closer to home. Sent message to her primary cardiology team (Lachelle) in the outpatient setting. 3. CAD s/p multiple PCI and CABG x 2 (HENDRIX to LAD; SVG to PDA): No obvious angina. Has atypical chest pain constantly and despite this, normalized high- sensitivity troponin levels on 04/28/2024 and 04/30/2024. Continue aspirin 81 mg daily. Continue beta-demar and statin therapy. HENDRIX to LAD and SVG to PDA are patent. Otherwise, severe multivessel CAD involving left main, LAD, circumflex, RCA. Her circumflex is not bypassed. Her constant chest discomfort is not likely angina and has been reported in the past according to previous cardiology notes. Addressing her circumflex may be more complicated/complex as per interventional cardiology and can be reviewed by her TAVR team. 4. Chest pain: Seems to be constant despite downtrending and eventually normalizing high-sensitivity troponin. Not likely cardiac in nature. 5. Dyspnea on exertion: Could be attributed to her aortic stenosis, CAD, CHF. Does not appear to be significantly hypervolemic currently. 6. Elevated troponin: High-sensitivity troponin peaked at 216 on 04/22/2024, and has since normalized. Per records, presented with heart failure exacerbation. Likely demand ischemia in the setting of heart failure, documented CAD, and significant aortic stenosis. 7. Hypertension: Blood pressure reasonably reasonably controlled. Can continue current regimen. 8. Dyslipidemia: Consider high intensity statin therapy if no contraindication. Increased atorvastatin to 40 mg daily. 9. Disposition: Please call on-call cardiology with any further questions or concerns. Cardiology will sign off at this time. Follow-up with her primary cardiology team, Mr. Larose ELIZABETH, in the outpatient setting. Message sent to Mr. Larose to keep him up-to-date with recent cath and patient's request to be referred to [facility], Dr. Oreilly, for TAVR consideration, although she has already been worked up at [facility]. Admission and Anticipated Discharge Date Admission Date: April 22, 2024 Subjective Patient was seen this morning. Still has chest pain, which has been constant throughout her hospital stay, however she states it has improved. She has chronic back pain. She has intermittent shortness of breath. She denies palpitations, or bleeding. She was unaccompanied. Physical Exam Physical Exam: Gen.: No acute distress. Alert. HEENT: Anicteric sclera. Neck: No appreciable JVD. Cardiac: Regular. Normal S1-S2. 2/6 late peaking systolic ejection murmur. Pulmonary: Clear to auscultation bilaterally without wheezes, rales, or rhonchi. Abdomen: Soft, nontender, nondistended, with normoactive bowel sounds. No bruits noted. Extremities: 2+ radial pulses bilaterally. Trace bilateral lower extremity edema. No cyanosis. Right femoral cath site is clean, dry, and intact without erythema, hematoma, or discharge. Results & Data Vital Signs (Past 12 Hours) Vital Signs Temp Pulse Pulse Resp BP BP Pulse Ox 05/01/24 10:42 36.7 C 66 17 123/58 L 94 05/01/24 08:00 05/01/24 07:27 74 16 115/65 96 05/01/24 03:50 36.4 C L 60 18 113/64 96 05/01/24 02:03 04/30/24 23:32 62 04/30/24 23:26 36.5 C 61 16 97/56 L 95 O2 Del Method 05/01/24 10:42 Room Air 05/01/24 08:00 Room Air 05/01/24 07:27 Room Air 05/01/24 03:50 Room Air 05/01/24 02:03 Room Air 04/30/24 23:32 04/30/24 23:26 Room Air Intake & Output 04/29/24 04/30/24 05/01/24 05/02/24 06:59 06:59 06:59 06:59 Intake Total 440 / 440 580 / 580 Output Total 1700 / 1700 951 / 951 1850 / 1850 Balance -1700 / -1700 -511 / -511 -1270 / -1270 Weight 186 lb 15.232 oz 192 lb 0.362 oz 184 lb 11.958 oz Laboratory Results Laboratory Results - last 24 hr 04/30/24 05/01/24 05:25 05:29 WBC 8.12 RBC 4.49 Hgb 13.3 Hct 39.5 MCV 88.0 MCH 29.6 MCHC 33.7 RDW Std Deviation 44.6 RDW Coeff of Vy 13.8 Plt Count 228 MPV 11.4 Immature Gran % (Auto) 0.4 Neut % (Auto) 67.7 Lymph % (Auto) 20.7 [place] % (Auto) 8.4 Eos % (Auto) 2.6 Baso % (Auto) 0.2 Neut # (Auto) 5.50 Lymph # (Auto) 1.68 [place] # (Auto) 0.68 H Eos # (Auto) 0.21 Baso # (Auto) 0.02 Immature Gran # (Auto) 0.03 Sodium 139 Potassium 3.6 Chloride 104 Carbon Dioxide 27 Anion Gap 8 BUN 29 H Creatinine 1.00 Est Cr Clr Drug Dosing 42.1 eGFR 56.95 BUN/Creatinine Ratio 29.0 H Glucose 100 H Calcium 9.6 Troponin I High Sens 10.4 Diagnostic Findings Labs reviewed from 05/01/2024 and notable for stable renal function, normal potassium, normal blood counts. Telemetry personally reviewed: Sinus rhythm. Medications Administered Current Inpatient Medications Acetaminophen (Acetaminophen 325 Mg Tab) 650 mg PO Q4H PRN PRN Reason: Pain or Fever Stop: 05/22/24 23:04 Last Admin: 05/01/24 07:47 Dose: 650 mg Aspirin (Aspirin 81 Mg Ectab) 81 mg PO DAILY [facility] Stop: 05/23/24 08:59 Last Admin: 05/01/24 08:30 Dose: 81 mg Atenolol (Atenolol 25 Mg Tablet) 25 mg PO BID [facility] Stop: 05/22/24 23:04 Last Admin: 05/01/24 08:28 Dose: 25 mg Atorvastatin Calcium (Atorvastatin 40 Mg Tab) 40 mg PO DAILY [facility] Stop: 05/30/24 08:59 Last Admin: 05/01/24 08:29 Dose: 40 mg Bumetanide (Bumetanide 1 Mg Tab) 3 mg PO DAILY [facility] Stop: 05/24/24 08:59 Last Admin: 05/01/24 08:29 Dose: 3 mg Clotrimazole (Clotrimazole 1% Cr 15 Gm Tube) 1 appln EXT BID [facility] Stop: 05/23/24 11:29 Last Admin: 05/01/24 08:28 Dose: 1 appln Duloxetine HCl (Duloxetine Hcl 30 Mg Cap) 30 mg PO DAILY [facility] Stop: 05/23/24 08:59 Last Admin: 05/01/24 08:28 Dose: 30 mg Enoxaparin Sodium (Enoxaparin Inj 40 Mg/0.4 Ml Syr) 40 mg SQ Q24H [facility] Stop: 05/22/24 23:04 Last Admin: 04/30/24 20:46 Dose: 40 mg Levothyroxine Sodium (Levothyroxine Sodium 137 Mcg Tablet) 137 mcg PO DAILYBB [facility] Stop: 05/23/24 06:29 Last Admin: 05/01/24 05:57 Dose: 137 mcg Lidocaine (Lidocaine 5% 1 Patch) 1 patch TD DAILY PRN PRN Reason: Pain Stop: 05/22/24 23:04 Miscellaneous (Remove Lidoderm Patch) 1 each N/A DAILY@2100 [facility] Stop: 05/22/24 23:04 Last Admin: 04/30/24 19:50 Dose: Not Given Oxybutynin Chloride (Oxybutynin Chloride Xl 5 Mg Tabcr) 10 mg PO DAILY [facility] Stop: 05/23/24 08:59 Last Admin: 05/01/24 08:28 Dose: 10 mg Pantoprazole Sodium (Pantoprazole 40 Mg Tab) 40 mg PO DAILY [facility] Stop: 05/23/24 08:59 Last Admin: 05/01/24 08:30 Dose: 40 mg Polyethylene Glycol (Polyethylene (Miralax) 17 Gm Pack) 17 gm PO DAILY PRN PRN Reason: Constipation Stop: 05/22/24 23:04 Potassium Chloride (Potassium Chloride Crtab 20 Meq Tabcr) 20 meq PO DAILY [facility] Stop: 05/23/24 08:59 Last Admin: 05/01/24 08:31 Dose: 20 meq Trazodone HCl (Trazodone Hcl 50 Mg Tab) 150 mg PO HS [facility] Stop: 05/22/24 23:04 Last Admin: 04/30/24 20:45 Dose: 150 mg PG Care Time/CCT Total # of Minutes Spent Total Time Spent with Patient: Total time spent is greater than 50% in coordination of care (as documented) at patient's floor/unit and/or counseling patient: Coding Level of Care Code 30697 SUB INP/OBS CARE 3/50MIN Diagnoses Coronary artery disease involving [place] coronary artery of [place] heart without angina pectoris I25.10 Coronary Disease-Associated Artery/Lesion type: [place] artery [place] vs. transplanted heart: [place] heart Associated angina: without angina S/P CABG x 2 Z95.1 S/P coronary artery stent placement Z95.5 Elevated troponin R79.89 Chest pain R07.9 Chest pain type: unspecified Acute on chronic heart failure with preserved ejection fraction I50.33 Heart failure chronicity: acute on chronic Severe aortic stenosis I35.0 Hyperlipidemia, unspecified hyperlipidemia type E78.5 Hyperlipidemia type: unspecified Hypertension I10 (1) CAD (coronary artery disease) Coronary Disease-Associated Artery/Lesion type: [place] artery [place] vs. transplanted heart: [place] heart Associated angina: without angina Qualified Code(s): I25.10 - Atherosclerotic heart disease of [place] coronary artery without angina pectoris (5) Chest pain Chest pain type: unspecified Qualified Code(s): R07.9 - Chest pain, unspecified (6) (HFpEF) heart failure with preserved ejection fraction Heart failure chronicity: acute on chronic Qualified Code(s): I50.33 - Acute on chronic diastolic (congestive) heart failure (8) Hyperlipidemia Hyperlipidemia type: unspecified Qualified Code(s): E78.5 - Hyperlipidemia, unspecified
--- NOTE | 2024-05-01 15:08 | Hospitalist Progress Note ---
Date of Service May 01, 2024 Assessment & Plan (1) Acute CHF: Plan: 78-year-old female with past medical history significant for CAD status post CABG, PCI x 2, severe aortic stenosis, heart failure with preserved ejection fraction, moderate LVH, hypertension GERD, hypothyroidism, depression comes because of shortness of breath x last couple of weeks [employer] and chest pain in the center of the chest x last couple of days ago [employer]. she is being managed for th e following: Acute Exacerbation of HFpEF History of severe aortic stenosis Patient presenting with complaint of progressive shortness of breath associated with chest discomfort and lower extremity edema. Patient reports compliance with home p.o. Bumex and cardiac medication. Echo this admission: EF of 65 to 70%, grade 1 diastolic dysfunction, severe valvular aortic stenosis. Left ventricular wall motion is normal. Cardiology evaled, pt transitioned to home bumex 04/24, recommends she markedly restrict activity (could use a wheelchair to take her to dinner) until TAVR which is planned later this month at [facility]. Follow-up with cardiology, and [facility] for TAVR upon discharge. She had [facility] appt on May 01 w/ Dr. Crespo for Coronary Angiography. Previous hospitalist communicated with [facility] 04/28 for possible transfer on 04/30 as pt is not being able to be discharged due to social issues.After discussion with the knife setter grinder machine on-call; it was confirmed that patient was going to have coronary angiogram as part of the TAVR workup on 05/01/2023 Cardiology team at [facility] requested if patient can go coronary angiogram while patient is here. Evaluated by cardiology; Underwent cardiac cath on 04/30/2023; found to have severe multivessel CAD involving left main, LAD, circumflex and RCA including in-stent restenosis of LAD and RCA. Patent HENDRIX to LAD and SVG to PDA Patient to follow-up after discharge to [facility] for definitive management. Chest pains, Likely demand ischemia ISO severe aortic stenosis Troponin elevated, flat trend, EKG with no acute finding, echo as above. Cardiology evaluated, Lipitor increased to 40mg once a day, continue on aspirin and atenolol. Continue telemetry. Other chronic medical conditions: Continue with/resume home meds as and when able. History of CAD status post CABG and stents: On aspirin, atorvastatin, atenolol History of sleep apnea: Patient says she is not using CPAP currently seems she do not have supplies. Needs help with a new CPAP, reached out to for assistance. Hypothyroidism: On Synthyroid DVT prophylaxis: Lovenox Disposition:Telemetry. Social issue hindering discharge. Case management on board. Case management concerned about patient's decision-making capacity; psychiatry consulted. Full code. Please note the above document was generated using voice recognition software. It may contain grammatical, syntax or spelling errors. Any formal questions or concerns about the content, text or information contained within the body of this dictation should be directly addressed to the provider for clarification Admission and Anticipated Discharge Date Admission Date: April 22, 2024 Subjective Patient seen and examined at bedside She is comfortable; not in distress She is sitting up on a chair; denies any chest pain, shortness of breath, abdominal pain or urinary symptoms. Review of Systems Review of Systems: All systems reviewed & are unremarkable except as noted in Subjective Physical Exam Physical Exam: General-Not in distress. Head- atraumatic Eyes- PERRL. ENT- oropharynx clear Neck- supple, no JVD. Lungs- clear to auscultation no wheezing or crackles Heart- regular rate and rhythm; no murmur, no gallop. Abdomen- normal bowel sounds, soft, nontender, no distension Extremities-b/l lower extremity trace edema present, noerythema. Neuro- alert, oriented PERRL, no facial palsy; no dysarthria; moves extremities Results & Data Results & Data Vital Signs (Past 12 Hours) Vital Signs Temp Pulse Resp BP BP Pulse Ox O2 Del Method 05/01/24 14:41 36.4 C L 69 17 111/71 96 Room Air 05/01/24 10:42 36.7 C 66 17 123/58 L 94 Room Air 05/01/24 08:00 Room Air 05/01/24 07:27 74 16 115/65 96 Room Air 05/01/24 03:50 36.4 C L 60 18 113/64 96 Room Air
[2024-05-02 06:20] LABS: Basophils # (auto) 0.05 K/uL (0.00-0.20); Basophils % (auto) 0.5 %; Eosinophils % (auto) 3.1 %; Hematocrit (blood only) 40.4 % (37.0-47.0); Hemoglobin 13.7 g/dl (12.0-16.0); Immature Granulocytes # (auto) 0.04 K/uL (0.01-0.20); Immature Granulocytes % (auto) 0.4 %; Lymphocytes % (auto) 22.7 %; Mean Corpuscular Hemoglobin 29.7 pg (25.0-34.0); Mean Corpuscular Hgb Conc 33.9 g/dL (32.0-36.0); Mean Corpuscular Volume 87.6 fL (80.0-100.0); Mean Platelet Volume 11.5 fL (9.4-12.4); Monocytes # (auto) 0.66 K/uL (0.11-0.59); Monocytes % (auto) 6.8 %; Neutrophils # (auto) 6.45 K/uL (1.40-6.50); Neutrophils % (auto) 66.5 %; Platelet Count 242 K/uL (130-400); RDW Coefficient of Variation 13.8 % (11.5-14.5); RDW Standard Deviation 43.4 fL (36.4-46.3); Red Blood Count 4.61 M/uL (4.20-5.40)
[2024-05-02 06:47] LABS: BUN Creatinine Ratio 27.1 (10-20); Calcium 9.7 mg/dl (8.6-10.3); Creatinine Clr Calc Pharmacy 43.6 ml/min
--- NOTE | 2024-05-02 09:58 | Hospitalist Progress Note ---
Date of Service May 02, 2024 Assessment & Plan (1) Acute CHF: Plan: 78-year-old female with past medical history significant for CAD status post CABG, PCI x 2, severe aortic stenosis, heart failure with preserved ejection fraction, moderate LVH, hypertension GERD, hypothyroidism, depression comes because of shortness of breath x last couple of weeks [employer] and chest pain in the center of the chest x last couple of days ago [employer]. she is being managed for th e following: Acute Exacerbation of HFpEF History of severe aortic stenosis Patient presenting with complaint of progressive shortness of breath associated with chest discomfort and lower extremity edema. Patient reports compliance with home p.o. Bumex and cardiac medication. Echo this admission: EF of 65 to 70%, grade 1 diastolic dysfunction, severe valvular aortic stenosis. Left ventricular wall motion is normal. Cardiology evaled, pt transitioned to home bumex 04/24, recommends she markedly restrict activity (could use a wheelchair to take her to dinner) until [place] which [place] this [place] [facility] Follow-up with cardiology, and [facility] for TAVR upon discharge. She had [facility] appt on May 01 w/ Dr. Crespo for Coronary Angiography. Previous hospitalist communicated with [facility] 04[place]28 for possible transfer on 04/30 as pt is not being able to be discharged due to social issues.After discussion with the jewelry store manager on-call; it was confirmed that patient was going to have coronary angiogram as part of the TAVR workup on 05/01/2023 Cardiology team at [facility] requested if patient can go coronary angiogram while patient is here. Evaluated by cardiology; Underwent cardiac cath on 04/30/2023; found to have severe multivessel CAD involving left main, LAD, circumflex and RCA including in-stent restenosis of LAD and RCA. Patent HENDRIX to LAD and SVG to PDA Patient to follow-up after discharge to [facility] for definitive management. Chest pains, Likely demand ischemia ISO severe aortic stenosis Troponin elevated, flat trend, EKG with no acute finding, echo as above. Cardiology evaluated, Lipitor increased to 40mg once a day, continue on aspirin and atenolol. Continue telemetry. Other chronic medical conditions: Continue with/resume home meds as and when able. History of CAD status post CABG and stents: On aspirin, atorvastatin, atenolol History of sleep apnea: Patient says she is not using CPAP currently seems she do not have supplies. Follow up with PCP Hypothyroidism: On Synthyroid DVT prophylaxis: Lovenox Disposition:Telemetry. Social issue hindering discharge. Case management on board. Patient medically stable for discharge. Full code. Please note the above document was generated using voice recognition software. It may contain grammatical, syntax or spelling errors. Any formal questions or concerns about the content, text or information contained within the body of this dictation should be directly addressed to the provider for clarification Admission and Anticipated Discharge Date Admission Date: April 22, 2024 Subjective Patient seen and examined at bedside. Comfortable; not in distress. Denies fever, chills, chest pain, shortness of breath, abdominal pain or urinary symptoms. No significant overnight events Review of Systems Review of Systems: All systems reviewed & are unremarkable except as noted in Subjective Physical Exam Physical Exam: General-Not in distress. Head- atraumatic Eyes- PERRL. ENT- oropharynx clear Neck- supple, no JVD. Lungs- clear to auscultation no wheezing or crackles Heart- regular rate and rhythm; no murmur, no gallop. Abdomen- normal bowel sounds, soft, nontender, no distension Extremities-b/l lower extremity trace edema present, noerythema. Neuro- alert, oriented PERRL, no facial palsy; no dysarthria; moves extremities Results & Data Results & Data Vital Signs (Past 12 Hours) Vital Signs Temp Pulse Pulse Resp BP BP Pulse Ox 05/02/24 07:07 36.4 C L 70 117/68 95 05/02/24 03:05 36.3 C L 80 16 93/52 L 93 05/01/24 23:45 70 05/01/24 23:02 36.3 C L 75 19 107/67 92 05/01/24 22:17 O2 Del Method 05/02/24 07:07 Room Air 05/02/24 03:05 Room Air 05/01/24 23:45 05/01/24 23:02 Room Air 05/01/24 22:17 Room Air
[2024-05-02] MEDS: ACETAMINOPHEN 1,000 MG/100 ML VIAL IV PRN (21:34)
--- NOTE | 2024-05-03 13:18 | Hospitalist Progress Note ---
Date of Service May 03, 2024 Assessment & Plan (1) Acute CHF: Plan: 78-year-old female with past medical history significant for CAD status post CABG, PCI x 2, severe aortic stenosis, heart failure with preserved ejection fraction, moderate LVH, hypertension GERD, hypothyroidism, depression comes because of shortness of breath x last couple of weeks [employer] and chest pain in the center of the chest x last couple of days ago [employer]. she is being managed for th e following: Acute Exacerbation of HFpEF History of severe aortic stenosis Patient presenting with complaint of progressive shortness of breath associated with chest discomfort and lower extremity edema. Patient reports compliance with home p.o. Bumex and cardiac medication. Echo this admission: EF of 65 to 70%, grade 1 diastolic dysfunction, severe valvular aortic stenosis. Left ventricular wall motion is normal. Cardiology evaled, pt transitioned to home bumex 04/24, recommends she markedly restrict activity (could use a wheelchair to take her to dinner) until TAVR which is planned later this month at [facility]. Follow-up with cardiology, and [facility] for TAVR upon discharge. She had [facility] appt on May 01 w/ Dr. Crespo for Coronary Angiography. Previous hospitalist communicated with [facility] 04/28 for possible transfer on 04/30 as pt is not being able to be discharged due to social issues.After discussion with the looseleaf binder coverer on-call; it was confirmed that patient was going to have coronary angiogram as part of the TAVR workup on 05/01/2023 Cardiology team at [facility] requested if patient can go coronary angiogram while patient is here. Evaluated by cardiology; Underwent cardiac cath on 04/30/2023; found to have severe multivessel CAD involving left main, LAD, circumflex and RCA including in-stent restenosis of LAD and RCA. Patent HENDRIX to LAD and SVG to PDA Patient to follow-up after discharge to [facility] for definitive management. Chest pains, Likely demand ischemia ISO severe aortic stenosis Troponin elevated, flat trend, EKG with no acute finding, echo as above. Cardiology evaluated, Lipitor increased to 40mg once a day, continue on aspirin and atenolol. Continue telemetry. Other chronic medical conditions: Continue with/resume home meds as and when able. History of CAD status post CABG and stents: On aspirin, atorvastatin, atenolol History of sleep apnea: Patient says she is not using CPAP currently seems she do not have supplies. Follow up with PCP Hypothyroidism: On Synthyroid DVT prophylaxis: Lovenox Disposition:Telemetry. Social issue hindering discharge. Case management on board. Patient medically stable for discharge. Full code. Please note the above document was generated using voice recognition software. It may contain grammatical, syntax or spelling errors. Any formal questions or concerns about the content, text or information contained within the body of this dictation should be directly addressed to the provider for clarification Admission and Anticipated Discharge Date Admission Date: April 22, 2024 Subjective Patient seen and examined at bedside. Comfortable; not in distress. Denies fever, chills, chest pain, shortness of breath, abdominal pain or urinary symptoms. No significant overnight events Review of Systems Review of Systems: All systems reviewed & are unremarkable except as noted in Subjective Physical Exam Physical Exam: General-Not in distress. Head- atraumatic Eyes- PERRL. ENT- oropharynx clear Neck- supple, no JVD. Lungs- clear to auscultation no wheezing or crackles Heart- regular rate and rhythm; no murmur, no gallop. Abdomen- normal bowel sounds, soft, nontender, no distension Extremities-b/l lower extremity trace edema present, noerythema. Neuro- alert, oriented PERRL, no facial palsy; no dysarthria; moves extremities Results & Data Results & Data Vital Signs (Past 12 Hours) Vital Signs Temp Pulse Pulse Resp BP BP Pulse Ox 05/03/24 11:08 36.7 C 68 17 108/74 95 05/03/24 09:24 70 05/03/24 07:22 36.3 C L 72 17 110/72 91 05/03/24 03:21 36.3 C L 72 18 116/61 94 05/03/24 01:54 O2 Del Method 05/03/24 11:08 Room Air 05/03/24 09:24 05/03/24 07:22 Room Air 05/03/24 03:21 Room Air 05/03/24 01:54 Room Air
[2024-05-03] MEDS: ENOXAPARIN INJ 40 MG/0.4 ML SYR SQ SCH (20:15)
[2024-05-04 02:40] VITALS: O2SAT 96
[2024-05-04 06:23] LABS: Basophils # (auto) 0.05 K/uL (0.00-0.20); Basophils % (auto) 0.7 %; Eosinophils # (auto) 0.21 K/uL (0.00-0.50); Eosinophils % (auto) 3.1 %; Hematocrit (blood only) 38.6 % (37.0-47.0); Hemoglobin 12.8 g/dl (12.0-16.0); Immature Granulocytes # (auto) 0.01 K/uL (0.01-0.20); Immature Granulocytes % (auto) 0.1 %; Lymphocytes # (auto) 1.76 K/uL (1.20-3.40); Lymphocytes % (auto) 26.1 %; Mean Corpuscular Hemoglobin 29.1 pg (25.0-34.0); Mean Corpuscular Hgb Conc 33.2 g/dL (32.0-36.0); Mean Corpuscular Volume 87.7 fL (80.0-100.0); Mean Platelet Volume 11.3 fL (9.4-12.4); Monocytes # (auto) 0.47 K/uL (0.11-0.59); Neutrophils # (auto) 4.24 K/uL (1.40-6.50); Platelet Count 207 K/uL (130-400); RDW Coefficient of Variation 13.8 % (11.5-14.5); RDW Standard Deviation 43.9 fL (36.4-46.3); White Blood Count 6.74 K/ul (4.8-10.8)
[2024-05-04 06:34] LABS: BUN Creatinine Ratio 33.3 (10-20); Calcium 9.6 mg/dl (8.6-10.3); Creatinine Clr Calc Pharmacy 42.6 ml/min; Potassium 3.8 mmol/L (3.5-5.1)
[2024-05-04 07:19] VITALS: RESP 20; TEMP 97.5
[2024-05-04 11:51] VITALS: BP 116/61; PULSE 78
--- NOTE | 2024-05-04 15:10 | Discharge Summary ---
Date of Service May 04, 2024 Admission HPI Per Admitting Provider 78-year-old female with past medical history significant for CAD status post CABG, PCI x 2, severe aortic stenosis, heart failure with preserved ejection fraction, moderate LVH, hypertension GERD, hypothyroidism, depression comes because of chest pain and shortness of breath. Patient states she has been short of breath for last couple of weeks. For last couple of days having chest pain in the center of the chest. Currently pain is better. Denies any nausea. No cough. No fevers. No headache. Says always dizzy. No abdominal pain. Normal bowel and bladder movements. Has swelling of the legs and some mild erythema in the legs. Past medical history. As mentioned above Past surgical history. . Tonsillectomy. Knee replacement. Hip replacement spinal fusion. Family history.. Father had prostate cancer. Mother had hypertension and CHF. Brother had liver cancer, colon cancer. Brother had kidney cancer. Diabetes. CHF. Social history. No smoking. Occasional alcohol. No drug use. Admission Exam Per Admitting Provider General-Not in distress. Head- atraumatic Eyes- PERRL. ENT- oropharynx clear Neck- supple, no JVD. Lungs- clear to auscultation no wheezing or crackles Heart- regular rate and rhythm; no murmur, no gallop. Abdomen- normal bowel sounds, soft, nontender, no distension Extremities-b/l lower extremity edema present with mild erythema. Neuro- alert, oriented PERRL, no facial palsy; no dysarthria; moves extremities Principal Diagnosis Acute Exacerbation of HFpEF History of severe aortic stenosis Discharge Exam General-Not in distress. Lungs- clear to auscultation no wheezing or crackles Heart- regular rate and rhythm; no murmur, no gallop. Abdomen- normal bowel sounds, soft, nontender, no distension Extremities-no edema present. Neuro- alert, oriented PERRL, no facial palsy; no dysarthria; moves extremities Discharge Data Allergies Allergy/AdvReac Type Severity Reaction Status Date / Time aripiprazole Allergy Unknown UNKNOWN Unverified 04/30/24 14:08 baclofen Allergy Unknown UNKNOWN Unverified 04/30/24 14:08 diazepam Allergy Unknown UNKNOWN Unverified 04/30/24 14:08 ketorolac Allergy Unknown UNKNOWN Unverified 04/30/24 14:08 oxaprozin Allergy Unknown UNKNOWN Unverified 04/30/24 14:08 Consultations 04/22/24 19:31 ED Decision to Admit Stat 04/22/24 23:05 Consult Cardiology Routine 04/25/24 08:57 Consult Psychiatry Routine 04/30/24 14:12 Consult Psychiatry Routine Procedures Performed Operation Date: 04/30/24 13:30 Actual Procedures p Cineradiography w/Routine Exam - Hunter Siegel MD p Cath, Cors with Grafts (no LV) - Hunter Siegel MD Ordered Studies 04/23/24 05:49 US venous doppler LE BI Routine 04/30/24 13:32 CL Cath Imgs for PACS use only Stat Hospital Course (1) Acute CHF: 78-year-old female with past medical history significant for CAD status post CABG, PCI x 2, severe aortic stenosis, heart failure with preserved ejection fraction, moderate LVH, hypertension GERD, hypothyroidism, depression comes because of shortness of breath x last couple of weeks [employer]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 Acute Exacerbation of HFpEF History of severe aortic stenosis Patient presenting with complaint of progressive shortness of breath associated with chest discomfort and lower extremity edema. Patient reports compliance with home p.o. Bumex and cardiac medication. Echo this admission: EF of 65 to 70%, grade 1 diastolic dysfunction, severe valvular aortic stenosis. Left ventricular wall motion is normal. Cardiology evaled, pt transitioned to home bumex 04/24, recommends she markedly restrict activity (could use a wheelchair to take her to dinner) until TAVR . Follow-up with cardiology, and [facility] for TAVR upon discharge. She had [facility] appt on May 01 w/ Dr. Crespo for Coronary Angiography. After discussion with the [facility] custodian athletic equipment on-call; it was confirmed that patient was going to have coronary angiogram as part of the TAVR workup on 05/01/2023 Cardiology team at [facility] requested if patient can go coronary angiogram while patient is here. Evaluated by cardiology; Underwent cardiac cath on 04/30/2023; found to have severe multivessel CAD involving left main, LAD, circumflex and RCA including in-stent restenosis of LAD and RCA. Patent HENDRIX to LAD and SVG to PDA Patient to follow-up after discharge to [facility] for definitive management. PT/OT evaluation was done; patient was discharged to rehab. Please note the above document was generated using voice recognition software. It may contain grammatical, syntax or spelling errors. Any formal questions or concerns about the content, text or information contained within the body of this dictation should be directly addressed to the provider for clarification Total Time Total Time Spent Total Time Spent (In Minutes): 45 Total Time Includes: Examination of the Patient, Discharge Planning, Medication Reconciliation, Communication With Other Providers and Other Discharge Plan Discharge Items Patient Disposition: Transfer [facility] Reason For Visit: CHEST PAIN, CHF Discharge Diagnosis: Acute Exacerbation of HFpEF History of severe aortic stenosis Activity: Resume your previous activity Non-emergency contact: Primary Care Provider Call non-emergency contact if: you have any medication questions and your symptoms worsen Follow-up/Referrals: Eren Ybarra DO [Primary Care Provider] - Diet: Regular Addtl Attending Provider Instructions: You were admitted to the hospital with chest pain. You underwent evaluation by cardiology. You underwent cardiac cath during the hospitalization. Please follow-up with [facility] cardiology for follow-up for your TAVR. Pending Studies at Discharge: No Stand-Alone Forms: My [facility] Skilled Items Patient informed of condition?: Yes DNR: No Discharge Level of Care: Skilled Communicable Disease: No Discharge Prognosis: Stable Lines: None Urinary Catheter: No Medications and DC Order Prescriptions: New atorvastatin 40 mg Tablet 40 mg PO DAILY Qty: 30 0RF Continued polyethylene glycol 3350 [Miralax] 17 gram Powder In Packet 17 g PO DAILY PRN (Reason: Constipation) levothyroxine 137 mcg Tablet 137 mcg PO DAILY Qty: 30 0RF oxybutynin chloride 10 mg Tablet Extended Release 24hr 10 mg PO DAILY Qty: 30 0RF atenolol 25 mg Tablet 25 mg PO BID Qty: 60 0RF aspirin 81 mg Tablet,Delayed Release (Dr/Ec) 81 mg PO DAILY Qty: 30 0RF trazodone 150 mg Tablet 150 mg PO HS Qty: 30 0RF lidocaine 5 % Adhesive Patch,Medicated 1 patch TOPICAL DAILY PRN (Reason: Pain) Qty: 30 0RF Rx Instructions: leave on most painful area for up to 12 hrs omeprazole 20 mg Capsule,Delayed Release(Dr/Ec) 20 mg PO DAILY Qty: 60 0RF bumetanide 1 mg Tablet 3 mg PO DAILY Qty: 30 0RF duloxetine 30 mg Capsule,Delayed Release(Dr/Ec) 30 mg PO DAILY Qty: 30 0RF potassium chloride 20 mEq Tablet Extended Release 20 meq PO DAILY Qty: 30 0RF Discontinued atorvastatin 20 mg Tablet 20 mg PO DAILY Discharge Orders: Discharge Order (Routine); Ordered 05/04/24 Ordered By: Rigo Domingo Admission Data Admit Date/Time: 04/22/24 20:43 Attending Provider: Rigo Domingo Admit Provider: Eldon Vickers Primary Care Provider: Eren Ybarra Other Providers: Eldon Vickers; Theron Larose; Shawn Kumar; Ramy Garcia; Carlos Escobar; Johnnie Cox; Rajiv Xiao Jr; Hunter Siegel; Corinna Womack; Katia Cruz; Albino Carnes; Albino Power; Shorty Gonzalez; Azucena Gutierrez; Eren Ojeda; Irina Buck; Clyde Fisher; Eren Rodriguez; Kelechi Lezama; Bishop Vasquez; Mariana Zazueta; Colt Vasquez; Beth Pelletier; Bozena Bearden; Prince Chávez; Tierra Jensen; Kimberli Fox Other Interventions: Discharge Summary Assessment (RN) Last Done: 05/04/24 11:48
--- NOTE | 2024-05-06 12:52 | Coding Query ---
CODING QUERY To promote full compliance with coding requirements relating to patient care, provider participation is requested in all cases of medical biller coder uncertainty. Please assist us with the question(s) below: Coding Question(s): Throughout pt record, it states Possibly Demand Ischemia In Setting Of severe Aortic Stenosis. Please clarify if Demand Ischemia is valid/treated dx while patient was IP and if it was POA or not. Physician's Response(s): ( X )Demand Ischemia POA ( )Demand Ischemia NOT POA ( )Demand Ischemia was NOT present throughout this admission Thank you Mariana Esqueda Principal Diagnosis: "that condition established after study, to be chiefly responsible for occasioning the admission of the patient to the hospital for care." Co-Existing Principal Diagnosis: "when two or more diagnoses equally meet the criteria for principal diagnosis as determined by the circumstances of admission, diagnostic work up, and/or therapy provided, and the Alphabetic Index, Tabular List, or another coding guideline does not provide sequencing direction, any one of the diagnoses may be sequenced first." "When the physician has documented what appears to be a current diagnosis in the body of the record, but has not included the diagnosis in the final diagnostic statement, the physician should be asked whether the diagnosis should be added." (Source Coding [facility] 2 QTR90. p3-4) JAREN
== END 2024-05-04 12:59 | DRG 286 ==
LOC: ED 17:25 → SUATTDRO 20:43 → EDINP 20:43 → 4W 22:16
PROC: CLB.CCG (2024-04-30 13:30)

== ENCOUNTER 2024-06-05 17:21 | Inpatient (IN) ==
--- NOTE | 2024-06-05 17:33 | Emergency Department Note ---
Impression & Plan Chest pain, Abnormal EKG ED Provider Note NAME: SANTOS TOLEDO AGE: 78 SEX: F : 1945 ARRIVES VIA: Ambulance INFORMANT: Patient, EMS ED PROVIDER(S): Ramy Contreras DO CHIEF COMPLAINT: Chest pain HPI: The patient is an 78-year-old female who presented to the emergency department for evaluation of chest pain. The patient describes anterior chest pain that goes into her back. She has a history of coronary artery disease. She was in our facility recently for similar complaints. She states that she has similar chest pain to when she had her coronary artery disease. She was treated with aspirin and nitroglycerin prior to arrival. She states that she has significant improvement of her symptoms but it is still present. She was evaluated by the provider at her personal-residential and was referred to the emergency department. ROS: See above HPI for pertinent positives & negatives. A total of 10 systems reviewed and were otherwise negative. PAST MEDICAL HISTORY: See Below PAST SURGICAL HISTORY: See Below FAMILY HISTORY: See Below SOCIAL HISTORY: See Below HOME MEDICATIONS: See Below ALLERGIES: See Below VITALS: See Below PHYSICAL EXAMINATION: GENERAL: Patient is awake alert in no acute distress patient is resting comfortably and showing no signs of anxiety EYES: The conjunctivae are clear. The pupils are round and reactive. EARS, NOSE, MOUTH AND THROAT: The nose is without any evidence of any deformity. NECK: The neck is nontender and supple. RESPIRATORY: Normal respiratory effort is noted there is no evidence of wheezing rhonchi or rales CARDIOVASCULAR: Regular rate and rhythm noted there no murmurs rubs or gallops normal S1 normal S2. GASTROINTESTINAL: The abdomen is soft. Abdomen is nontender. MUSCULOSKELETAL/EXTREMITIES: There is no evidence of gross deformity full range of motion is noted in the hips and shoulders. SKIN: There is no obvious evidence of any rash. There are no petechiae, pallor or cyanosis noted. NEUROLOGIC: Patient is awake alert and oriented x3 MEDICAL DECISION MAKING: The patient is an 78-year-old female who presents to the emergency department for an evaluation of chest pain. The patient was treated with aspirin and nitroglycerin prior to arrival. The patient does have a history of coronary artery disease. She had a catheterization in April of this year. She was found to have diffuse coronary artery disease. The patient's EKG showed no changes from before but does show some ST segment depressions. The patient's cardiac biomarker was negative x 2. Given the patient's risk factors she is not a good candidate for outpatient management. I discussed her condition with the on-call [facility]. They have agreed to evaluate the patient in the emergency department for further management and disposition Triage Nursing notes reviewed. Prior medical records reviewed Vital Signs: reviewed and remarkable for no significant abnormalities Differential diagnosis: Cardiac ischemia, aortic dissection, pulmonary embolism, pneumothorax, pneumonia, pericarditis, myocarditis, esophageal rupture, GERD, cholecystitis, pancreatitis, musculoskeletal, as well as other pathologies. ER treatment provided: See below Diagnostics interpreted by me: ECG: EKG was obtained in the emergency department. My interpretation is sinus tachycardia at 107 bpm. There was no ectopy. Nonspecific ST depressions were noted in the inferior and lateral leads. This was compared to a tracing from April 30, 2024. There is an increase in the rate otherwise no changes were noted Cardiac Monitoring: An order was placed for continuous cardiac monitoring. The monitor shows a rate of 96 bpm with sinus rhythm Laboratory studies: As stated above and show below. Imaging studies: See below. Radiographic imaging was reviewed by myself Consultation(s): I discussed this case with Dr. Domingo who is on-call for the [facility] group. Past Med/Surg History Problem List (Updated 06/05/24 @ 21:56 by Ramy Contreras DO) Abnormal EKG (Acute) Chest pain (Acute) Hypertension S/P coronary artery stent placement Exertional angina Demand ischemia Acute CHF Elevated troponin (Acute) Hypervolemia (Acute) Chest pain (Acute) Atypical chest pain Stented coronary artery LVH (left ventricular hypertrophy) Rotator cuff tear arthropathy of right shoulder (HFpEF) heart failure with preserved ejection fraction (Acute) S/P CABG x 2 (Acute) Ambulatory dysfunction CAD (coronary artery disease) Severe aortic stenosis Right shoulder pain Arm pain (Acute) Chest pain (Acute) Antiplatelet or antithrombotic long-term use Neurogenic claudication Lumbar spinal stenosis Chronic pain syndrome (Acute) Atherosclerotic heart disease of [place] coronary artery without angina pectoris Hypothyroidism Hyperlipidemia GERD (gastroesophageal reflux disease) Essential hypertension Weakness generalized (Acute) Medical History 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 Depression, unspecified CHF (congestive heart failure) 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 Encephalopathy Surgical History H/O: section Hx of tonsillectomy History of knee replacement History of hip replacement H/O spinal fusion Family History Father Prostate cancer Mother Hypertension CHF (congestive heart failure) Brother Liver cancer Colon cancer Brother History of kidney cancer Diabetes CHF (congestive heart failure) Social History Smoking Status: Never smoker Hx Alcohol Use: Yes Alcohol type: wine Alcohol Intake Frequency: Monthly or Less Hx Substance Use: No Preferred Language: Swazi Communication Ability: Effective [employer] 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 Beliefs That Will Affect Care: None Current Living Situation: Personal Care Facility Feels Safe at Home: Yes Assistive Devices: Walker Allergies Allergies Allergy/AdvReac Type Severity Reaction Status Date / Time aripiprazole Allergy Unknown UNKNOWN Unverified 06/05/24 21:25 baclofen Allergy Unknown UNKNOWN Unverified 06/05/24 21:25 diazepam Allergy Unknown UNKNOWN Unverified 06/05/24 21:25 ketorolac Allergy Unknown UNKNOWN Unverified 06/05/24 21:25 oxaprozin Allergy Unknown UNKNOWN Unverified 06/05/24 21:25 Home Meds Home Medications Medication Instructions Recorded Confirmed polyethylene glycol 3350 17 gram 17 g PO DAILY PRN Constipation 04/22/24 06/05/24 oral powder packet (Miralax) Previous Rx's Medication Instructions Recorded aspirin 81 mg tablet,delayed 81 mg PO DAILY #30 tabs 05/04/24 release atenolol 25 mg tablet 25 mg PO BID #60 tabs 05/04/24 atorvastatin 40 mg tablet 40 mg PO DAILY #30 tabs 05/04/24 bumetanide 1 mg tablet 3 mg (3 x 1 mg) PO DAILY #30 tabs 05/04/24 duloxetine 30 mg capsule,delayed 30 mg PO DAILY #30 caps 05/04/24 release levothyroxine 137 mcg tablet 137 mcg PO DAILY #30 tabs 05/04/24 omeprazole 20 mg capsule,delayed 20 mg PO DAILY #60 caps 05/04/24 release oxybutynin chloride 10 mg 10 mg PO DAILY #30 tabs 05/04/24 tablet,extended release 24 hr potassium chloride 20 mEq 20 meq PO DAILY #30 tabs 05/04/24 tablet,extended release trazodone 150 mg tablet 150 mg PO HS #30 tabs 05/04/24 Results & Data (ED) Vital Signs Vital Signs - 24 hr 06/05/24 17:25 06/05/24 17:25 06/05/24 17:48 Temperature 36.5 C Temperature Source Oral Pulse Rate 111 H 108 H Pulse Rate [Apical] Respiratory Rate 17 Respiratory Effort / Characteristics Short of Breath Blood Pressure 140/101 H Blood Pressure [Left Arm] Blood Pressure Mean 114 Blood Pressure Mean [Left Arm] Blood Pressure Position Semi-fowlers Blood Pressure Position [Left Arm] Pulse Oximetry 94 Oxygen Delivery Method Room Air Room Air Sepsis Recent Fever Within 48 Hours No Sepsis New/Unexplained Change in Mental Status No Sepsis Action Taken by Nursing No Action Required 06/05/24 17:54 06/05/24 17:55 06/05/24 19:36 Temperature Temperature Source Pulse Rate 104 H 100 H Pulse Rate [Apical] Respiratory Rate 26 H 11 L Respiratory Effort / Characteristics Blood Pressure Blood Pressure [Left Arm] Blood Pressure Mean Blood Pressure Mean [Left Arm] Blood Pressure Position Blood Pressure Position [Left Arm] Pulse Oximetry 94 Oxygen Delivery Method Room Air Room Air Sepsis Recent Fever Within 48 Hours Sepsis New/Unexplained Change in Mental Status Sepsis Action Taken by Nursing 06/05/24 20:03 06/05/24 20:42 06/05/24 20:43 Temperature Temperature Source Pulse Rate 97 H 95 H Pulse Rate [Apical] Respiratory Rate 12 12 Respiratory Effort / Characteristics Blood Pressure 120/56 L Blood Pressure [Left Arm] Blood Pressure Mean 104 Blood Pressure Mean [Left Arm] Blood Pressure Position Blood Pressure Position [Left Arm] Pulse Oximetry 93 Oxygen Delivery Method Sepsis Recent Fever Within 48 Hours Sepsis New/Unexplained Change in Mental Status Sepsis Action Taken by Nursing 06/05/24 21:01 06/05/24 21:34 Temperature Temperature Source Pulse Rate 96 H Pulse Rate [Apical] 97 H Respiratory Rate 15 Respiratory Effort / Characteristics Blood Pressure Blood Pressure [Left Arm] 116/73 Blood Pressure Mean Blood Pressure Mean [Left Arm] 87 Blood Pressure Position Blood Pressure Position [Left Arm] Semi-fowlers Pulse Oximetry 95 Oxygen Delivery Method Room Air Sepsis Recent Fever Within 48 Hours Sepsis New/Unexplained Change in Mental Status Sepsis Action Taken by Snf Medications Current Medication List: was personally reviewed by me Laboratory Data Attestation: I reviewed the patient's lab results. 06/05/24 17:49 06/05/24 17:49 Lab Results 06/05/24 06/05/24 Range/Units 17:49 20:20 WBC 9.45 (4.8-10.8) K/ul RBC 4.15 L (4.20-5.40) M/uL Hgb 12.1 (12.0-16.0) g/dl Hct 36.5 L (37.0-47.0) % MCV 88.0 (80.0-100.0) fL MCH 29.2 (25.0-34.0) pg MCHC 33.2 (32.0-36.0) g/dL RDW Std Deviation 45.1 (36.4-46.3) fL RDW Coeff of Vy 14.1 (11.5-14.5) % Plt Count 204 (130-400) K/uL MPV 10.6 (9.4-12.4) fL Immature Gran % (Auto) 0.4 % Neut % (Auto) 68.6 % Lymph % (Auto) 19.2 % [place] % (Auto) 9.8 % Eos % (Auto) 1.7 % Baso % (Auto) 0.3 % Neut # (Auto) 6.48 (1.40-6.50) K/uL Lymph # (Auto) 1.81 (1.20-3.40) K/uL [place] # (Auto) 0.93 H (0.11-0.59) K/uL Eos # (Auto) 0.16 (0.00-0.50) K/uL Baso # (Auto) 0.03 (0.00-0.20) K/uL Immature Gran # (Auto) 0.04 (0.01-0.20) K/uL PT 10.3 (9.0-12.0) Seconds INR 0.9 (0.9-1.1) APTT 26 (21-31) Seconds PTT Ratio 1.0 Sodium 139 (136-145) mmol/L Potassium 3.9 (3.5-5.1) mmol/L Chloride 102 (98-107) mmol/L Carbon Dioxide 29 (21-32) mmol/L Anion Gap 8 (3-11) BUN 24 H (6-23) mg/dl Creatinine 0.86 (0.6-1.2) mg/dl Est Cr Clr Drug Dosing 49.6 ml/min eGFR 68.25 BUN/Creatinine Ratio 27.9 H (10-20) Glucose 102 H (70-99(Fasting)) mg/dl Calcium 9.6 (8.6-10.3) mg/dl Total Bilirubin 0.3 (0.2-1.0) mg/dl AST 19 (13-39) U/L ALT 16 (7-52) U/L Alkaline Phosphatase 88 (34-104) U/L Troponin I High Sens 10.2 11.9 (0-14) pg/ml Total Protein 7.0 (6.0-8.3) gm/dl Albumin 4.1 (3.4-5.0) gm/dl Globulin 2.9 (2.5-4.0) gm/dl Albumin/Globulin Ratio 1.4 (0.9-2) Lipase 53 (11-82) U/L Imaging Data Attestation: I personally reviewed and interpreted this imaging study as follows: My Impression: 1 view chest x-ray was obtained in the emergency department. My interpretation is no free air or definite infiltrate, final report below Radiologist's Impression: Chest X-Ray 06/05/24 17:24 Chest radiograph, one view History: Chest pain Comparison: 04/22/2024 Findings: Single AP view of the chest performed. No focal consolidation or pleural effusion. No pneumothorax. The cardiomediastinal silhouette is within normal limits. Normal pulmonary vascularity. No evidence for lymphadenopathy. No visualized bony or soft tissue abnormality. Left shoulder arthroplasty. Chronic bony remodeling of the glenoid again seen. Median sternotomy wires appear intact. Impression: Normal chest radiograph Electronically signed by Albino Barker 06-05-2024 7:20 PM Discharge Plan Visit Data Chief Complaint: Chest Pain Stated Complaint: CHEST PAIN ED Provider: Ramy Contreras Discharge Problem: Chest pain, Abnormal EKG Patient Disposition: Being Evaluated by Hospitalist Forms Stand Alone Forms: My [facility] [employer] Prescriptions Prescriptions: No Action polyethylene glycol 3350 [Miralax] 17 gram Powder In Packet 17 g PO DAILY PRN (Reason: Constipation) atorvastatin 40 mg Tablet 40 mg PO DAILY Qty: 30 0RF levothyroxine 137 mcg Tablet 137 mcg PO DAILY Qty: 30 0RF oxybutynin chloride 10 mg Tablet Extended Release 24hr 10 mg PO DAILY Qty: 30 0RF atenolol 25 mg Tablet 25 mg PO BID Qty: 60 0RF aspirin 81 mg Tablet,Delayed Release (Dr/Ec) 81 mg PO DAILY Qty: 30 0RF trazodone 150 mg Tablet 150 mg PO HS Qty: 30 0RF omeprazole 20 mg Capsule,Delayed Release(Dr/Ec) 20 mg PO DAILY Qty: 60 0RF bumetanide 1 mg Tablet 3 mg PO DAILY Qty: 30 0RF duloxetine 30 mg Capsule,Delayed Release(Dr/Ec) 30 mg PO DAILY Qty: 30 0RF potassium chloride 20 mEq Tablet Extended Release 20 meq PO DAILY Qty: 30 0RF Referrals Referrals: Eren Ybarra DO [Primary Care Provider] -
[2024-06-05 18:34] LABS: Basophils # (auto) 0.03 K/uL (0.00-0.20); Basophils % (auto) 0.3 %; Eosinophils # (auto) 0.16 K/uL (0.00-0.50); Eosinophils % (auto) 1.7 %; Hematocrit (blood only) 36.5 % (37.0-47.0); Hemoglobin 12.1 g/dl (12.0-16.0); Immature Granulocytes # (auto) 0.04 K/uL (0.01-0.20); Immature Granulocytes % (auto) 0.4 %; Lymphocytes # (auto) 1.81 K/uL (1.20-3.40); Lymphocytes % (auto) 19.2 %; Mean Corpuscular Hemoglobin 29.2 pg (25.0-34.0); Mean Corpuscular Hgb Conc 33.2 g/dL (32.0-36.0); Mean Platelet Volume 10.6 fL (9.4-12.4); Monocytes # (auto) 0.93 K/uL (0.11-0.59); Monocytes % (auto) 9.8 %; Neutrophils # (auto) 6.48 K/uL (1.40-6.50); Neutrophils % (auto) 68.6 %; Platelet Count 204 K/uL (130-400); RDW Coefficient of Variation 14.1 % (11.5-14.5); RDW Standard Deviation 45.1 fL (36.4-46.3); Red Blood Count 4.15 M/uL (4.20-5.40); White Blood Count 9.45 K/ul (4.8-10.8)
[2024-06-05 18:45] LABS: Albumin Globulin Ratio 1.4 (0.9-2); Albumin Level 4.1 gm/dl (3.4-5.0); BUN Creatinine Ratio 27.9 (10-20); Bilirubin,Total 0.3 mg/dl (0.2-1.0); Calcium 9.6 mg/dl (8.6-10.3); Creatinine Clr Calc Pharmacy 49.6 ml/min; Globulin 2.9 gm/dl (2.5-4.0); Potassium 3.9 mmol/L (3.5-5.1)
[2024-06-05 18:51] LABS: Troponin I High Sensitivity 10.2 pg/ml (0-14)
[2024-06-05 18:57] LABS: INR 0.9 (0.9-1.1); Partial Thromboplastin Time 26 Seconds (21-31); Prothrombin Time 10.3 Seconds (9.0-12.0)
--- NOTE | 2024-06-05 19:21 | XRay Report ---
Chest radiograph, one view History: Chest pain Comparison: 04/22/2024 Findings: Single AP view of the chest performed. No focal consolidation or pleural effusion. No pneumothorax. The cardiomediastinal silhouette is within normal limits. Normal pulmonary vascularity. No evidence for lymphadenopathy. No visualized bony or soft tissue abnormality. Left shoulder arthroplasty. Chronic bony remodeling of the glenoid again seen. Median sternotomy wires appear intact. Impression: Normal chest radiograph Electronically signed by Albino Barker 06-05-2024 7:20 PM
[2024-06-05] MEDS ORDERED: NITROGLYCERIN SL 0.4 MG/TAB TAB SL PRN (21:30)
--- NOTE | 2024-06-05 21:45 | History & Physical Report ---
Date of Service June 05, 2024 Assessment & Plan (1) Chest pain: (2) S/P coronary artery stent placement: (3) Severe aortic stenosis: Plan Patient is a 78-year-old female with Past medical history of CAD status post CABG, PCI x 2, severe aortic stenosis, heart failure with preserved ejection fraction, hypertension, GERD, hypothyroidism, depression Presents to the hospital with chest pain Chest pain History of CAD status post CABG, PCI Severe Patient with known history of CAD, severe presents with left-sided chest pain. High sensitive troponin x 2 negative Last echo in April 2024 shows EF of 65 to 70% with moderate concentric LVH, grade 1 diastolic dysfunction, severe aortic stenosis Last cardiac cath in April 30, 2024; severe multivessel CAD involving left main, LAD, circumflex and RCA including in-stent restenosis of LAD and RCA; patent HENDRIX to LAD and SVG to PDA. Patient has not followed up with [facility] for TAVR; reports that she changed her mind regarding the procedure; doesn't want any procedures. Will consult cardiology to see optimization of her medication can be done for the recurrent pain. Continue on aspirin, Lipitor 40 mg, atenolol, Telemonitoring Chronic conditions; HFpEF, compensatedecho as above; continue on bumetanide, atenolol Hypothyroidismcontinue levothyroxine Mood disordercontinue on duloxetine DNR/DNI as per discussion with the patient DVT prophylaxis heparin Please note the above document was generated using voice recognition software. It may contain grammatical, syntax or spelling errors. Any formal questions or concerns about the content, text or information contained within the body of this dictation should be directly addressed to the provider for clarification History of Present Illness Chief Complaint: Chest pain for 1 day Primary Care Provider: Eren Ybarra DO History obtained from chart review and interview with the patient. Past medical history of CAD status post CABG, PCI x 2, severe aortic stenosis, heart failure with preserved ejection fraction, hypertension, GERD, hypothyroidism, depression. Last admission in April 2024 for CHF; underwent cardiac cath on 04/30/2023; found to have severe multivessel CAD involving left main, LAD, circumflex and RCA including in-stent restenosis of LAD and RCA. Patent HENDRIX to LAD and SVG to PDA. It was done as a part of workup for possible TAVR in [place]. Patient was then discharged to rehab. Patient reports that she had acute onset of left-sided chest pain, radiating to the shoulder and jaw which came upon at rest. It subsided after receiving aspirin and nitroglycerin. Patient denies shortness of breath, palpitations, dizziness, abdomen pain or urinary symptoms. When discussed regarding follow-up regarding her severe at her [facility]; patient reported that she changed her mind she does not want any further interventions. In the ED, patient was found to be afebrile, normotensive and saturating well on room air. EKG showed normal sinus rhythm; no significant ST or T wave changes. High sensitive troponin negative. Chest x-ray did not show any acute finding. Patient referred for admission. Allergies Allergy/AdvReac Type Severity Reaction Status Date / Time aripiprazole Allergy Unknown UNKNOWN Unverified 06/05/24 21:25 baclofen Allergy Unknown UNKNOWN Unverified 06/05/24 21:25 diazepam Allergy Unknown UNKNOWN Unverified 06/05/24 21:25 ketorolac Allergy Unknown UNKNOWN Unverified 06/05/24 21:25 oxaprozin Allergy Unknown UNKNOWN Unverified 06/05/24 21:25 Home Medications Medication Instructions Recorded Confirmed Type polyethylene glycol 3350 17 gram 17 g PO DAILY PRN Constipation 04/22/24 06/05/24 History oral powder packet (Miralax) aspirin 81 mg tablet,delayed 81 mg PO DAILY #30 tabs 05/04/24 06/05/24 Rx release atenolol 25 mg tablet 25 mg PO BID #60 tabs 05/04/24 06/05/24 Rx atorvastatin 40 mg tablet 40 mg PO DAILY #30 tabs 05/04/24 06/05/24 Rx bumetanide 1 mg tablet 3 mg (3 x 1 mg) PO DAILY #30 tabs 05/04/24 06/05/24 Rx duloxetine 30 mg capsule,delayed 30 mg PO DAILY #30 caps 05/04/24 06/05/24 Rx release levothyroxine 137 mcg tablet 137 mcg PO DAILY #30 tabs 05/04/24 06/05/24 Rx omeprazole 20 mg capsule,delayed 20 mg PO DAILY #60 caps 05/04/24 06/05/24 Rx release oxybutynin chloride 10 mg 10 mg PO DAILY #30 tabs 05/04/24 06/05/24 Rx tablet,extended release 24 hr potassium chloride 20 mEq 20 meq PO DAILY #30 tabs 05/04/24 06/05/24 Rx tablet,extended release trazodone 150 mg tablet 150 mg PO HS #30 tabs 05/04/24 06/05/24 Rx Past Med/Surg History Problem List (Updated 06/05/24 @ 21:56 by Ramy Contreras DO) Abnormal EKG (Acute) Chest pain (Acute) Hypertension S/P coronary artery stent placement Exertional angina Demand ischemia Acute CHF Elevated troponin (Acute) Hypervolemia (Acute) Chest pain (Acute) Atypical chest pain Stented coronary artery LVH (left ventricular hypertrophy) Rotator cuff tear arthropathy of right shoulder (HFpEF) heart failure with preserved ejection fraction (Acute) S/P CABG x 2 (Acute) Ambulatory dysfunction CAD (coronary artery disease) Severe aortic stenosis Right shoulder pain Arm pain (Acute) Chest pain (Acute) Antiplatelet or antithrombotic long-term use Neurogenic claudication Lumbar spinal stenosis Chronic pain syndrome (Acute) Atherosclerotic heart disease of [place] coronary artery without angina pectoris Hypothyroidism Hyperlipidemia GERD (gastroesophageal reflux disease) Essential hypertension Weakness generalized (Acute) Medical History 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 Depression, unspecified CHF (congestive heart failure) 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 Encephalopathy Surgical History H/O: section Hx of tonsillectomy History of knee replacement History of hip replacement H/O spinal fusion Family History Father Prostate cancer Mother Hypertension CHF (congestive heart failure) Brother Liver cancer Colon cancer Brother History of kidney cancer Diabetes CHF (congestive heart failure) Social History Smoking Status: Never smoker Hx Alcohol Use: Yes Alcohol type: wine Alcohol Intake Frequency: Monthly or Less Hx Substance Use: No Preferred Language: Danish Communication Ability: Effective 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 Respiratory: Bilateral vesicular breath sound Cardiovascular: RRR, systolic murmur present Chest: normal inspection of chest Abdomen: normal bowel sounds, soft, nontender, no hepatosplenomegaly Musculoskeletal: Trace pitting edema present Neurologic: PERRL, EOMI, accommodation nl, no face palsy, no dysarthria CN's II- XI intact bilaterally and moves all extremities Psychiatric: A+Ox3, euthymic affect Results & Data Results & Data Vital Signs (Past 12 Hours) Vital Signs Temp Pulse Pulse Resp BP BP Pulse Ox 06/05/24 21:01 97 H 15 116/73 95 06/05/24 20:43 120/56 L 06/05/24 20:42 95 H 12 93 06/05/24 20:03 97 H 12 06/05/24 19:36 100 H 11 L 06/05/24 17:55 104 H 26 H 94 06/05/24 17:54 06/05/24 17:48 108 H 06/05/24 17:25 06/05/24 17:25 36.5 C 111 H 17 140/101 H 94 O2 Del Method 06/05/24 21:01 Room Air 06/05/24 20:43 06/05/24 20:42 06/05/24 20:03 06/05/24 19:36 06/05/24 17:55 Room Air 06/05/24 17:54 Room Air 06/05/24 17:48 06/05/24 17:25 Room Air 06/05/24 17:25 Room Air Code Status & VTE Plan VTE Prophylaxis Plan VTE Prophylaxis will be ordered: Yes (1) Chest pain Chest pain type: unspecified Qualified Code(s): R07.9 - Chest pain, unspecified
[2024-06-05] MEDS: HEPARIN SOD 5,000 UNIT/0.5 ML VIAL SQ SCH (22:47)
[2024-06-05] MEDS: ATORVASTATIN 40 MG TAB PO SCH (23:59)
[2024-06-06] MEDS: traZODone HCL 50 MG TAB PO SCH
[2024-06-06] MEDS: ATENOLOL 25 MG TABLET PO SCH
[2024-06-06] MEDS: LEVOTHYROXINE SODIUM 137 MCG TABLET PO SCH (05:45)
[2024-06-06] MEDS: ACETAMINOPHEN 325 MG TAB PO PRN (05:53)
[2024-06-06 07:10] LABS: Basophils # (auto) 0.05 K/uL (0.00-0.20); Basophils % (auto) 0.8 %; Eosinophils # (auto) 0.16 K/uL (0.00-0.50); Eosinophils % (auto) 2.6 %; Hematocrit (blood only) 36.1 % (37.0-47.0); Hemoglobin 11.8 g/dl (12.0-16.0); Immature Granulocytes # (auto) 0.02 K/uL (0.01-0.20); Immature Granulocytes % (auto) 0.3 %; Lymphocytes % (auto) 26.2 %; Mean Corpuscular Hgb Conc 32.7 g/dL (32.0-36.0); Mean Corpuscular Volume 88.7 fL (80.0-100.0); Mean Platelet Volume 10.6 fL (9.4-12.4); Monocytes # (auto) 0.58 K/uL (0.11-0.59); Monocytes % (auto) 9.5 %; Neutrophils # (auto) 3.69 K/uL (1.40-6.50); Neutrophils % (auto) 60.6 %; Platelet Count 192 K/uL (130-400); RDW Coefficient of Variation 14.2 % (11.5-14.5); RDW Standard Deviation 45.7 fL (36.4-46.3); Red Blood Count 4.07 M/uL (4.20-5.40)
[2024-06-06 07:26] LABS: BUN Creatinine Ratio 24.4 (10-20); Calcium 9.6 mg/dl (8.6-10.3); Creatinine Clr Calc Pharmacy 50.8 ml/min; Potassium 3.7 mmol/L (3.5-5.1)
[2024-06-06 07:33] LABS: Troponin I High Sensitivity 11.7 pg/ml (0-14)
[2024-06-06] MEDS: ASPIRIN 81 MG ECTAB PO SCH (08:07)
[2024-06-06] MEDS: OXYBUTYNIN CHLORIDE XL 5 MG TABCR PO SCH (08:08)
[2024-06-06] MEDS: PANTOprazole 40 MG TAB PO SCH (08:08)
[2024-06-06] MEDS: BUMETANIDE 1 MG TAB PO SCH (08:09)
[2024-06-06] MEDS: DULoxetine HCL 30 MG CAP PO SCH (08:09)
[2024-06-06] MEDS: POTASSIUM CHLORIDE CRTAB 20 MEQ TABCR PO SCH (08:10)
[2024-06-06] MEDS ORDERED: ATORVASTATIN 40 MG TAB PO SCH (09:00)
[2024-06-06] MEDS ORDERED: ATENOLOL 25 MG TABLET PO SCH (09:00)
--- NOTE | 2024-06-06 11:32 | Cardiology Consultation ---
Date of Consultation June 06, 2024 Assessment & Plan (1) Chest pain: -Review of the chart notes numerous complaints of a chest pain syndrome with normal troponins. -High-sensitivity troponin normal x 4 despite hours of chest discomfort. -No acute EKG changes. -Her chest discomfort does not represent coronary ischemia. (2) CAD (coronary artery disease): -Known three-vessel coronary disease by recent cardiac catheterization. -Both bypass grafts are patent. -Continue medical management. (3) Severe aortic stenosis: -Has been evaluated for a TAVR at [facility]. -Patient refuses any further procedures. -Cardiology will sign off. History of Present Illness Attending Physician: Efrain Brandon MD History of Present Illness Mrs. Pham is an 78-year-old female admitted yesterday with a chest pain syndrome. This consultation was ordered to assist in her cardiac management. Of note, the patient typically follows with Theron Larose PA-C in the outpatient setting. The patient was in her usual state of health until the day of presentation. She developed a chest pain syndrome characterized by discomfort in the substernal region radiating to her neck and jaw. There were no other associated symptoms such as shortness of breath, nausea, vomiting, or diaphoresis. The patient's discomfort lasted for several hours according to her report. It resolved after the administration of aspirin and nitroglycerin. The patient does have a history of severe three-vessel coronary artery disease. She underwent a cardiac catheterization last month which revealed a patent HENDRIX to the LAD, and a patent SVG to an OM branch. She had an 80% stenosis in the left main coronary artery extending into the proximal LAD. There was a 70% stenosis in the mid LAD within her stents. There are sequential 70% stenoses in the LCx. The proximal RCA had a 95% in-stent restenosis. There was a mid 95% RCA stenosis. She also carries a history of severe aortic stenosis. She was evaluated by the team at [facility] for a TAVR. She has decided against having any procedures. Currently, the patient is resting comfortably in bed and without complaints. Allergies Allergy/AdvReac Type Severity Reaction Status Date / Time aripiprazole Allergy Unknown UNKNOWN Unverified 06/05/24 21:25 baclofen Allergy Unknown UNKNOWN Unverified 06/05/24 21:25 diazepam Allergy Unknown UNKNOWN Unverified 06/05/24 21:25 ketorolac Allergy Unknown UNKNOWN Unverified 06/05/24 21:25 oxaprozin Allergy Unknown UNKNOWN Unverified 06/05/24 21:25 Home Medications Medication Instructions Recorded Confirmed Type polyethylene glycol 3350 17 gram 17 g PO DAILY PRN Constipation 04/22/24 06/05/24 History oral powder packet (Miralax) aspirin 81 mg tablet,delayed 81 mg PO DAILY #30 tabs 05/04/24 06/05/24 Rx release atenolol 25 mg tablet 25 mg PO BID #60 tabs 05/04/24 06/05/24 Rx atorvastatin 40 mg tablet 40 mg PO DAILY #30 tabs 05/04/24 06/05/24 Rx bumetanide 1 mg tablet 3 mg (3 x 1 mg) PO DAILY #30 tabs 05/04/24 06/05/24 Rx duloxetine 30 mg capsule,delayed 30 mg PO DAILY #30 caps 05/04/24 06/05/24 Rx release levothyroxine 137 mcg tablet 137 mcg PO DAILY #30 tabs 05/04/24 06/05/24 Rx omeprazole 20 mg capsule,delayed 20 mg PO DAILY #60 caps 05/04/24 06/05/24 Rx release oxybutynin chloride 10 mg 10 mg PO DAILY #30 tabs 05/04/24 06/05/24 Rx tablet,extended release 24 hr potassium chloride 20 mEq 20 meq PO DAILY #30 tabs 05/04/24 06/05/24 Rx tablet,extended release trazodone 150 mg tablet 150 mg PO HS #30 tabs 05/04/24 06/05/24 Rx Patient History Medical History 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 Depression, unspecified CHF (congestive heart failure) 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 Encephalopathy Surgical History H/O: section Hx of tonsillectomy History of knee replacement History of hip replacement H/O spinal fusion Family History Father Prostate cancer Mother Hypertension CHF (congestive heart failure) Brother Liver cancer Colon cancer Brother History of kidney cancer Diabetes CHF (congestive heart failure) Social History Smoking Status: Never smoker Do You Dip or Chew Tobacco: No; Hx Alcohol Use: Yes Alcohol type: wine Alcohol Intake Frequency: Monthly or Less Hx Substance Use: No Preferred Language: Kuwaiti Communication Ability: Effective Housing Case Manager Required: No Beliefs That Will Affect Care: None Current Living Situation: [facility] Other Information That Helps Us Care for You: No Feels Safe at Home: Yes Safety Concerns: Feels Safe At This Time Assistive Devices: Glasses and Walker Physical Exam Physical Exam: In general this is an obese white female lying supine in bed without complaints. HEENT exam is negative. Neck is supple with delayed and prolonged carotid upstrokes. No obvious bruits or transmitted murmurs. Cardiovascular Santos feels a regular rhythm with a 3/6 crescendo decrescendo systolic murmur heard loudest at the base. S2 is not audible at the apex. Lungs are clear without rales, rhonchi, or wheezes. Abdomen soft without bruits but extremities reveal intact radial artery pulse bilaterally. There is no peripheral edema. Results & Data Vital Signs (Past 12 Hours) Vital Signs Temp Pulse Pulse Resp BP BP Pulse Ox 06/06/24 09:32 06/06/24 08:19 36.3 C L 76 17 100/52 L 93 06/06/24 07:13 76 06/06/24 03:10 36.3 C L 76 18 105/71 93 06/06/24 00:11 06/05/24 23:33 36.6 C 91 H 20 154/84 H 96 O2 Del Method 06/06/24 09:32 Room Air 06/06/24 08:19 Room Air 06/06/24 07:13 06/06/24 03:10 Room Air 06/06/24 00:11 Room Air 06/05/24 23:33 Room Air Laboratory Results Initial high-sensitivity troponin was 10.2 with follow-up values of 11.9, 11.4, and 11.7. Diagnostic Findings EKG notes sinus tachycardia and poor R wave progression across anterior precordium. There is evidence of left trickle hypertrophy and repolarization changes. PG Care Time/CCT Total # of Minutes Spent Total Time Spent with Patient: Total time spent is greater than 50% in coordination of care (as documented) at patient's floor/unit and/or counseling patient: Coding Level of Care Code 72095 INT INP/OBS CARE 3/75MIN Diagnoses Chest pain R07.9 Coronary artery disease involving [place] coronary artery of [place] heart without angina pectoris I25.10 Coronary Disease-Associated Artery/Lesion type: [place] artery [place] vs. transplanted heart: [place] heart Associated angina: without angina Severe aortic stenosis I35.0 (2) CAD (coronary artery disease) Coronary Disease-Associated Artery/Lesion type: [place] artery [place] vs. transplanted heart: [place] heart Associated angina: without angina Qualified Code(s): I25.10 - Atherosclerotic heart disease of [place] coronary artery without angina pectoris
--- NOTE | 2024-06-06 13:29 | Hospitalist Progress Note ---
Date of Service June 06, 2024 Assessment & Plan (1) Chest pain: (2) S/P coronary artery stent placement: (3) Severe aortic stenosis: Plan 78-year-old female with Past medical history of CAD status post CABG, PCI x 2, severe aortic stenosis, heart failure with preserved ejection fraction, hypertension, GERD, hypothyroidism, depression presents to the hospital with chest pain. Chest pain History of CAD status post CABG, PCI Severe Patient with known history of CAD, severe presents with left-sided chest pain. High sensitive troponin x 4 negative, EKG w/ no acute ST or T changes. Last echo in April 2024 shows EF of 65 to 70% with moderate concentric LVH, grade 1 diastolic dysfunction, severe aortic stenosis Last cardiac cath in April 30, 2024; severe multivessel CAD involving left main, LAD, circumflex and RCA including in-stent restenosis of LAD and RCA; patent HENDRIX to LAD and SVG to PDA. Patient has not followed up with [facility] for TAVR; reports that she changed her mind regarding the procedure; doesn't want any procedures. Cardiology evaled, no further recs. Continue on aspirin, Lipitor 40 mg, atenolol Chronic conditions; HFpEF, compensatedecho as above; continue on bumetanide, atenolol Hypothyroidismcontinue levothyroxine Mood disordercontinue on duloxetine DNR/DNI as per discussion with the patient DVT prophylaxis heparin pt/ot, cm to assist w/ dc plan. Please note the above document was generated using voice recognition software. It may contain grammatical, syntax or spelling errors. Any formal questions or concerns about the content, text or information contained within the body of this dictation should be directly addressed to the provider for clarification Admission and Anticipated Discharge Date Admission Date: June 05, 2024 Subjective Pt was seen and examined at bedside. Pt was sitting up in bed, on RA, NAD. Pt reports chest pressure but reports now feeling better. Pt denies sob. Reports eating ok and moving bowels ok. Physical Exam Physical Exam: Constitutional: Alert oriented x 3; not in distress. Respiratory: Bilateral vesicular breath sound Cardiovascular: RRR, systolic murmur present Chest: normal inspection of chest Abdomen: normal bowel sounds, soft, nontender, no hepatosplenomegaly Musculoskeletal: Trace pitting edema present Neurologic: PERRL, EOMI, accommodation nl, no face palsy, no dysarthria CN's II- XI intact bilaterally and moves all extremities Psychiatric: A+Ox3, euthymic affect Results & Data Results & Data Vital Signs (Past 12 Hours) Vital Signs Temp Pulse Pulse Resp BP BP Pulse Ox 06/06/24 11:57 36.5 C 79 17 100/48 L 93 06/06/24 09:32 06/06/24 08:19 36.3 C L 76 17 100/52 L 93 06/06/24 07:13 76 06/06/24 03:10 36.3 C L 76 18 105/71 93 O2 Del Method 06/06/24 11:57 Room Air 06/06/24 09:32 Room Air 06/06/24 08:19 Room Air 06/06/24 07:13 06/06/24 03:10 Room Air (1) Chest pain Chest pain type: unspecified Qualified Code(s): R07.9 - Chest pain, unspecified
[2024-06-06] MEDS: LIDOCAINE 5% 1 PATCH TD STA (18:24)
[2024-06-06] MEDS: DICLOFENAC SOD 1% GEL 100 GM TUBE EXT PRN (19:20)
[2024-06-06] MEDS ORDERED: traZODone HCL 50 MG TAB PO SCH (21:00)
[2024-06-07 06:43] LABS: BUN Creatinine Ratio 29.5 (10-20); Calcium 9.6 mg/dl (8.6-10.3); Creatinine Clr Calc Pharmacy 43.9 ml/min; Magnesium 2.2 mg/dl (1.7-2.4); Phosphorus 3.3 mg/dl (2.5-4.9); Potassium 4.1 mmol/L (3.5-5.1)
[2024-06-07] MEDS ORDERED: LIDOCAINE 5% 1 PATCH TD SCH (09:00)
--- NOTE | 2024-06-07 09:50 | Electrocardiogram Report ---
Test Reason : Blood Pressure : */* mmHG Vent. Rate : 107 BPM Atrial Rate : 107 BPM P-R Int : 174 ms QRS Dur : 94 ms QT Int : 376 ms P-R-T Axes : 63 -12 115 degrees QTcB Int : 501 ms Sinus tachycardia Possible Left atrial enlargement Septal infarct , age undetermined Left ventricular hypertrophy with repolarization abnormality Abnormal ECG When compared with ECG of 30-Apr-2024 10:58, Vent. rate has increased by 43 bpm Septal infarct is now Present Confirmed by Ramy Garcia ([id number]) on 06/07/2024 9:49:36 AM Referred By: REFERRED SELF Confirmed By: Ramy Garcia
--- NOTE | 2024-06-07 11:08 | Hospitalist Progress Note ---
Date of Service June 07, 2024 Assessment & Plan (1) Chest pain: (2) S/P coronary artery stent placement: (3) Severe aortic stenosis: Plan 78-year-old female with Past medical history of CAD status post CABG, PCI x 2, severe aortic stenosis, heart failure with preserved ejection fraction, hypertension, GERD, hypothyroidism, depression presents to the hospital with chest pain. Chest pain History of CAD status post CABG, PCI Severe Patient with known history of CAD, severe presents with left-sided chest pain. High sensitive troponin x 4 negative, EKG w/ no acute ST or T changes. Last echo in April 2024 shows EF of 65 to 70% with moderate concentric LVH, grade 1 diastolic dysfunction, severe aortic stenosis Last cardiac cath in April 30, 2024; severe multivessel CAD involving left main, LAD, circumflex and RCA including in-stent restenosis of LAD and RCA; patent HENDRIX to LAD and SVG to PDA. Patient has not followed up with [facility] for TAVR; reports that she changed her mind regarding the procedure; doesn't want any procedures. Cardiology evaled, no further recs. Continue on aspirin, Lipitor 40 mg, atenolol Chronic conditions; HFpEF, compensatedecho as above; continue on bumetanide, atenolol Hypothyroidismcontinue levothyroxine Mood disordercontinue on duloxetine DNR/DNI as per discussion with the patient DVT prophylaxis heparin pt/ot, cm to assist w/ dc plan. Pt would benefit by establishing w/ palliative care as OP, it was d/w patient given that she doesn't want intervention for severe , she was agreeable. Please note the above document was generated using voice recognition software. It may contain grammatical, syntax or spelling errors. Any formal questions or concerns about the content, text or information contained within the body of this dictation should be directly addressed to the provider for clarification Admission and Anticipated Discharge Date Admission Date: June 05, 2024 Subjective Pt was seen and examined at bedside. Pt was sitting up in chair, on RA, NAD. Pt reports no chest pressure. Pt denies sob. Pt reports chronic low back pain, will use voltaren gel and K pad, if no improvement, trial small dose oxy. Reports eating ok and moving bowels ok. Physical Exam Physical Exam: Constitutional: Alert oriented x 3; not in distress. Respiratory: Bilateral vesicular breath sound Cardiovascular: RRR, systolic murmur present Chest: normal inspection of chest Abdomen: normal bowel sounds, soft, nontender, no hepatosplenomegaly Musculoskeletal: Trace pitting edema present Neurologic: PERRL, EOMI, accommodation nl, no face palsy, no dysarthria CN's II- XI intact bilaterally and moves all extremities Psychiatric: A+Ox3, euthymic affect Results & Data Results & Data Vital Signs (Past 12 Hours) Vital Signs Temp Pulse Pulse Pulse Resp BP Pulse Ox 06/07/24 10:02 06/07/24 07:45 36.3 C L 74 20 113/69 96 06/07/24 06:34 78 06/07/24 04:12 36.4 C L 72 18 104/68 96 O2 Del Method 06/07/24 10:02 Room Air 06/07/24 07:45 Room Air 06/07/24 06:34 06/07/24 04:12 Room Air (1) Chest pain Chest pain type: unspecified Qualified Code(s): R07.9 - Chest pain, unspecified
[2024-06-07] MEDS: oxyCODONE HCL IR 5 MG TAB (IMMEDIATE RELEASE) PO PRN (16:25)
--- NOTE | 2024-06-08 12:37 | Hospitalist Progress Note ---
Date of Service June 08, 2024 Assessment & Plan (1) Chest pain: (2) S/P coronary artery stent placement: (3) Severe aortic stenosis: Plan 78-year-old female with Past medical history of CAD status post CABG, PCI x 2, severe aortic stenosis, heart failure with preserved ejection fraction, hypertension, GERD, hypothyroidism, depression presents to the hospital with chest pain. Chest pain History of CAD status post CABG, PCI Severe Patient with known history of CAD, severe presents with left-sided chest pain. High sensitive troponin x 4 negative, EKG w/ no acute ST or T changes. Last echo in April 2024 shows EF of 65 to 70% with moderate concentric LVH, grade 1 diastolic dysfunction, severe aortic stenosis Last cardiac cath in April 30, 2024; severe multivessel CAD involving left main, LAD, circumflex and RCA including in-stent restenosis of LAD and RCA; patent HENDRIX to LAD and SVG to PDA. Patient has not followed up with [facility] for TAVR; reports that she changed her mind regarding the procedure; doesn't want any procedures. Pt agreeable for palliative care consult. Cardiology evaled, no further recs. Continue on aspirin, Lipitor 40 mg, atenolol Chronic conditions; HFpEF, compensatedecho as above; continue on bumetanide, atenolol Hypothyroidismcontinue levothyroxine Mood disordercontinue on duloxetine DNR/DNI as per discussion with the patient DVT prophylaxis heparin pt/ot, cm to assist w/ dc plan. Please note the above document was generated using voice recognition software. It may contain grammatical, syntax or spelling errors. Any formal questions or concerns about the content, text or information contained within the body of this dictation should be directly addressed to the provider for clarification Admission and Anticipated Discharge Date Admission Date: June 05, 2024 Subjective Pt was seen and examined at bedside. Pt was sitting up in chair, on RA, NAD. Pt reports some chest pressure. Pt denies sob. Pt reports better controlled chronic low back pain, c/t use voltaren gel and K pad, prn oxy. Reports eating ok and moving bowels ok. Physical Exam Physical Exam: Constitutional: Alert oriented x 3; not in distress. Respiratory: Bilateral vesicular breath sound Cardiovascular: RRR, systolic murmur present Chest: normal inspection of chest Abdomen: normal bowel sounds, soft, nontender, no hepatosplenomegaly Musculoskeletal: Trace pitting edema present Neurologic: PERRL, EOMI, accommodation nl, no face palsy, no dysarthria CN's II- XI intact bilaterally and moves all extremities Psychiatric: A+Ox3, euthymic affect Results & Data Results & Data Vital Signs (Past 12 Hours) Vital Signs Temp Pulse Pulse Resp BP Pulse Ox O2 Del Method 06/08/24 12:31 36.7 C 76 16 126/54 L 94 Room Air 06/08/24 07:47 36.6 C 78 20 104/54 L 94 Room Air 06/08/24 07:14 75 06/08/24 04:30 36.5 C 88 18 104/65 94 Room Air (1) Chest pain Chest pain type: unspecified Qualified Code(s): R07.9 - Chest pain, unspecified
[2024-06-08] MEDS: POLYETHYLENE (MIRALAX) 17 GM PACK PO PRN (19:35)
[2024-06-09 07:25] LABS: BUN Creatinine Ratio 28.1 (10-20); Calcium 9.6 mg/dl (8.6-10.3); Creatinine Clr Calc Pharmacy 46.3 ml/min; Potassium 4.4 mmol/L (3.5-5.1)
[2024-06-09 11:10] VITALS: TEMP 97.7
[2024-06-09] MEDS ORDERED: oxyCODONE HCL IR 5 MG TAB (IMMEDIATE RELEASE) PO PRN (12:13)
[2024-06-09] MEDS ORDERED: LORazepam 0.5 MG TAB PO PRN (12:13)
--- NOTE | 2024-06-09 13:51 | Hospitalist Progress Note ---
Date of Service June 09, 2024 Assessment & Plan (1) Chest pain: (2) S/P coronary artery stent placement: (3) Severe aortic stenosis: Plan 78-year-old female with Past medical history of CAD status post CABG, PCI x 2, severe aortic stenosis, heart failure with preserved ejection fraction, hypertension, GERD, hypothyroidism, depression presents to the hospital with chest pain. Chest pain History of CAD status post CABG, PCI Severe Patient with known history of CAD, severe presents with left-sided chest pain. High sensitive troponin x 4 negative, EKG w/ no acute ST or T changes. Last echo in April 2024 shows EF of 65 to 70% with moderate concentric LVH, grade 1 diastolic dysfunction, severe aortic stenosis Last cardiac cath in April 30, 2024; severe multivessel CAD involving left main, LAD, circumflex and RCA including in-stent restenosis of LAD and RCA; patent HENDRIX to LAD and SVG to PDA. Patient has not followed up with [facility] for TAVR; reports that she changed her mind regarding the procedure; doesn't want any procedures. Pt agreeable for palliative care consult. Cardiology evaled, no further recs. Continue on aspirin, Lipitor 40 mg, atenolol Palliative evaled, She wants comfort care with hospice at snf. Chronic conditions; HFpEF, compensatedecho as above; continue on bumetanide, atenolol Hypothyroidismcontinue levothyroxine Mood disordercontinue on duloxetine DNR/DNI as per discussion with the patient DVT prophylaxis heparin cm to assist w/ dc plan. to med surg until then. Please note the above document was generated using voice recognition software. It may contain grammatical, syntax or spelling errors. Any formal questions or concerns about the content, text or information contained within the body of this dictation should be directly addressed to the provider for clarification Admission and Anticipated Discharge Date Admission Date: June 05, 2024 Subjective Pt was seen and examined at bedside. Pt was lying in bed, on RA, NAD. Pt reports some chest pressure. Pt denies sob. Pt reports better controlled chronic low back pain, c/t use voltaren gel and K pad, prn oxy. Reports eating ok and moving bowels ok. d/w palliative, pt wants comfort care w/ hospice at snf. d/w CM they will work on setting her up for dc. updated pt's dtr emerson over the phone, she thanked me for updating on patient and her wishes to go on comfort care and hospice. Physical Exam Physical Exam: Constitutional: Alert oriented x 3; not in distress. Respiratory: Bilateral vesicular breath sound Cardiovascular: RRR, systolic murmur present Chest: normal inspection of chest Abdomen: normal bowel sounds, soft, nontender, no hepatosplenomegaly Musculoskeletal: Trace pitting edema present Neurologic: PERRL, EOMI, accommodation nl, no face palsy, no dysarthria CN's II- XI intact bilaterally and moves all extremities Psychiatric: A+Ox3, euthymic affect Results & Data Results & Data Vital Signs (Past 12 Hours) Vital Signs Temp Pulse Pulse Resp BP Pulse Ox O2 Del Method 06/09/24 11:09 36.5 C 75 20 97/56 L 96 Room Air 06/09/24 07:45 36.6 C 80 18 137/58 L 95 Room Air 06/09/24 06:45 73 06/09/24 02:56 36.3 C L 80 18 111/68 94 Room Air (1) Chest pain Chest pain type: unspecified Qualified Code(s): R07.9 - Chest pain, unspecified
[2024-06-09 15:38] VITALS: BP 110/69; PULSE 66; RESP 16; O2SAT 94
--- NOTE | 2024-06-09 16:30 | Discharge Summary ---
Date of Service June 09, 2024 Admission HPI Per Admitting Provider History obtained from chart review and interview with the patient. Past medical history of CAD status post CABG, PCI x 2, severe aortic stenosis, heart failure with preserved ejection fraction, hypertension, GERD, hypothyroidism, depression. Last admission in April 2024 for CHF; underwent cardiac cath on 04/30/2023; found to have severe multivessel CAD involving left main, LAD, circumflex and RCA including in-stent restenosis of LAD and RCA. Patent HENDRIX to LAD and SVG to PDA. It was done as a part of workup for possible TAVR in [place]. Patient was then discharged to rehab. Patient reports that she had acute onset of left-sided chest pain, radiating to the shoulder and jaw which came upon at rest. It subsided after receiving aspirin and nitroglycerin. Patient denies shortness of breath, palpitations, dizziness, abdomen pain or urinary symptoms. When discussed regarding follow-up regarding her severe at her [facility]; patient reported that she changed her mind she does not want any further interventions. In the ED, patient was found to be afebrile, normotensive and saturating well on room air. EKG showed normal sinus rhythm; no significant ST or T wave changes. High sensitive troponin negative. Chest x-ray did not show any acute finding. Patient referred for admission. Admission Exam Per Admitting Provider Constitutional: Alert oriented x 3; not in distress. Respiratory: Bilateral vesicular breath sound Cardiovascular: RRR, systolic murmur present Chest: normal inspection of chest Abdomen: normal bowel sounds, soft, nontender, no hepatosplenomegaly Musculoskeletal: Trace pitting edema present Neurologic: PERRL, EOMI, accommodation nl, no face palsy, no dysarthria CN's II- XI intact bilaterally and moves all extremities Psychiatric: A+Ox3, euthymic affect Principal Diagnosis Severe aortic stenosis Discharge Exam Constitutional: Alert oriented x 3; not in distress. Respiratory: Bilateral vesicular breath sound Cardiovascular: RRR, systolic murmur present Chest: normal inspection of chest Abdomen: normal bowel sounds, soft, nontender, no hepatosplenomegaly Musculoskeletal: Trace pitting edema present Neurologic: PERRL, EOMI, accommodation nl, no face palsy, no dysarthria CN's II- XI intact bilaterally and moves all extremities Psychiatric: A+Ox3, euthymic affect Discharge Data Allergies Allergy/AdvReac Type Severity Reaction Status Date / Time aripiprazole Allergy Unknown UNKNOWN Unverified 06/05/24 21:25 baclofen Allergy Unknown UNKNOWN Unverified 06/05/24 21:25 diazepam Allergy Unknown UNKNOWN Unverified 06/05/24 21:25 ketorolac Allergy Unknown UNKNOWN Unverified 06/05/24 21:25 oxaprozin Allergy Unknown UNKNOWN Unverified 06/05/24 21:25 Consultations 06/05/24 21:21 ED Decision to Admit Stat 06/06/24 08:00 Consult Cardiology Routine 06/08/24 12:34 Consult Palliative Care Routine Hospital Course (1) Chest pain: (2) S/P coronary artery stent placement: (3) Severe aortic stenosis: Plan 78-year-old female with Past medical history of CAD status post CABG, PCI x 2, severe aortic stenosis, heart failure with preserved ejection fraction, hypertension, GERD, hypothyroidism, depression presents to the hospital with chest pain. Chest pain History of CAD status post CABG, PCI Severe Patient with known history of CAD, severe presents with left-sided chest pain. High sensitive troponin x 4 negative, EKG w/ no acute ST or T changes. Last echo in April 2024 shows EF of 65 to 70% with moderate concentric LVH, grade 1 diastolic dysfunction, severe aortic stenosis Last cardiac cath in April 30, 2024; severe multivessel CAD involving left main, LAD, circumflex and RCA including in-stent restenosis of LAD and RCA; patent HENDRIX to LAD and SVG to PDA. Patient has not followed up with [facility] for TAVR; reports that she changed her mind regarding the procedure; doesn't want any procedures. Pt agreeable for palliative care consult. Cardiology evaled, no further recs. Continue on aspirin, Lipitor 40 mg, atenolol Palliative evaled, She wants comfort care with hospice at snf. Chronic conditions; HFpEF, compensatedecho as above; continue on bumetanide, atenolol Hypothyroidismcontinue levothyroxine Mood disordercontinue on duloxetine DNR/DNI as per discussion with the patient DVT prophylaxis heparin patient is being discharged to medical facility with hospice. Please note the above document was generated using voice recognition software. It may contain grammatical, syntax or spelling errors. Any formal questions or concerns about the content, text or information contained within the body of this dictation should be directly addressed to the provider for clarification Home Health Attestation I certify that this patient is under my care and that I, or a physicians teachers assistant working with me, had a face to-face encounter that meets the home health [id number] encounter requirements with this patient. The encounter with the patient was in whole, or in part, for the following medical condition, which is the primary reason for home health care (list medical condition): I certify that, based on my findings, the following services are medically necessary home health services: My clinical findings support the need for the above services because: Further, I certify that my clinical findings support that this patient is homebound (i.e. absences from home require considerable and taxing effort and are for medical reasons or evangelical services or infrequently or of short duration when for other reasons) because: Certification for Home Health Services: Based on the above findings, I certify that this patient is confined to the home and needs intermittent senior living care, physical therapy and/or speech therapy or continues to need occupational therapy. The patient is under my care, and I have initiated the establishment of the plan of care. This patient will be followed by a physician who will periodically review the plan of care. Total Time Total Time Spent Total Time Spent (In Minutes): 45 Discharge Plan Discharge Items Patient Disposition: Hospice - Medical Facility Reason For Visit: CHEST PAIN Discharge Diagnosis: Severe aortic stenosis Activity: Resume your previous activity Non-emergency contact: Primary Care Provider Call non-emergency contact if: you have any medication questions Follow-up/Referrals: Eren Ybarra DO [Primary Care Provider] - Diet: Heart Healthy Addtl Attending Provider Instructions: You are being discharged to residential with hospice. Hospice provider will take over care of your medications once discharged. Pending Studies at Discharge: No Stand-Alone Forms: My [facility] Skilled Items Patient informed of condition?: Yes DNR: Yes Discharge Level of Care: Skilled Communicable Disease: No Discharge Prognosis: Stable Lines: None Urinary Catheter: No Medications and DC Order Prescriptions: New oxycodone 5 mg Tablet 5 mg PO Q4H PRN (Reason: back pain) Qty: 10 0RF Continued polyethylene glycol 3350 [Miralax] 17 gram Powder In Packet 17 g PO DAILY PRN (Reason: Constipation) atorvastatin 40 mg Tablet 40 mg PO DAILY Qty: 30 0RF levothyroxine 137 mcg Tablet 137 mcg PO DAILY Qty: 30 0RF oxybutynin chloride 10 mg Tablet Extended Release 24hr 10 mg PO DAILY Qty: 30 0RF atenolol 25 mg Tablet 25 mg PO BID Qty: 60 0RF aspirin 81 mg Tablet,Delayed Release (Dr/Ec) 81 mg PO DAILY Qty: 30 0RF trazodone 150 mg Tablet 150 mg PO HS Qty: 30 0RF omeprazole 20 mg Capsule,Delayed Release(Dr/Ec) 20 mg PO DAILY Qty: 60 0RF bumetanide 1 mg Tablet 3 mg PO DAILY Qty: 30 0RF duloxetine 30 mg Capsule,Delayed Release(Dr/Ec) 30 mg PO DAILY Qty: 30 0RF potassium chloride 20 mEq Tablet Extended Release 20 meq PO DAILY Qty: 30 0RF Discharge Orders: Discharge Order (Routine); Ordered 06/09/24 Ordered By: Efrain Brandon Admission Data Admit Date/Time: 06/05/24 21:30 Attending Provider: Efrain Brandon Admit Provider: Rigo Domingo Primary Care Provider: Eren Ybarra Other Providers: Rigo Domingo; Theron Larose; Shawn Kumar; Ramy Garcia; Carlos Escobar; Johnnie Cox; Rajiv Xiao Jr; Hunter Siegel; Corinna Womack; Katia Cruz; Albino Carnes; Albino Power; Shorty Gonzalez; Azucena Gutierrez; Eren Ojeda; Irina Buck; Eren Rodriguez; Kelcehi Lezama; Tee Harp Joann; Britt Orozco
--- NOTE | 2024-06-09 18:45 | Palliative Care Consultation ---
Date of Consultation June 09, 2024 Assessment & Plan (1) Chest pain: Generalized chest pain - Oxy IR 5mg PO q4h prn (2) Anxiety disorder due to medical condition: Ativan 0.5mg PO q4h prn anxiety,insomnia,nausea (3) Advanced care planning/counseling discussion: I met with Claudia face to face for 60min in an ACP meeting We spoke about her valvular HF and desire to avoid more surgery She told me about her declining health for past year and how much she has been losing, ultimately leading to [place] [facility], She is saddened by her loss of autonomy and freedom. She was very active and social and now she feels she is merely existing, has little to no social interaction, family does not visit and she is tired all the time. All days are bad days and she does not feel she has meaningful QOL. We spoke about what she wants to focus on at this time and she tells me it should be more about her comfort. She does not want to prolong anything and she wants to have less pain. We discussed a transition to comfort focused care and reviewed hospice. I p rovided education about the hospice benefit: an interdisciplinary program offered by nurses, nurses aides, social workers, chaplains and a biomedical engineering technician for patients with a terminal condition and a life expectancy of less than 6 months. This is covered by Medicare at 100%/no out of pocket expense to patient and all meds/supplies needed by patient for the reason they are on hospice are paid for/covered by hospice. The goal is assure quality of life of the patient in their home setting (home, [place] [facility], inpatient hospice setting) by providing symptoms management, psychosocial and spiritual support. However, they cannot offer 24 hours care and if the family is unable to provide that care, they will have to consider personal care with out of pocket cost vs. [place] [facility] placement. We discussed the goals of hospice as a patient service and the goals of care; we discussed EOL trajectories and transitions leticia the emotional impact of realizing mortality as a concrete reality from prior abstract considerations. Pt was reassured that no matter where they are along this trajectory, they are not alone - their medical team will remain by their side through their journey. Discussed the pros/cons of accepting help when especially weakened and distressed by pain-which would also help provide relief/decrease caregiver burden/strain. She tells me she is unafraid of dying, and has made peace with where her life is and how things are not getting better. She is upset her social chilkat did not keep in touch after her transition to SNF but she states at this time she just wants a peaceful ending. (4) Encounter for hospice care discussion: (5) Palliative care by specialist: Introduced Palliative Medicine and explained our role in patient's care. Patient and/or family were receptive to palliative services for goals of care discussions. Reviewed we are different from hospice, a home health nurse visiting service. Plan As above return to SNF with hospice OxyIR and prn Ativan for sx mgt ordered Thank you for allowing us to participate in the ongoing care of this patient. Please page with any additional concerns. Karlee Orozco DNP Director, Palliative Medicine History of Present Illness Attending Physician: Efrain Brandon MD History of Present Illness Claudia is an 78yo female with CAD status post CABG, PCI x 2, severe aortic stenosis, heart failure with preserved ejection fraction, hypertension, GERD, hypothyroidism, depression. Last admission in April 2024 for CHF; underwent cardiac cath on 04/30/2023; found to have severe multivessel CAD involving left main, LAD, circumflex and RCA including in-stent restenosis of LAD and RCA. Patent HENDRIX to LAD and SVG to PDA. It was done as a part of workup for possible TAVR in [place]. Patient was then discharged to rehab. Patient reports that she had acute onset of left-sided chest pain, radiating to the shoulder and jaw which came upon at rest. It subsided after receiving aspirin and nitroglycerin. Patient denies shortness of breath, palpitations, dizziness, abdomen pain or urinary symptoms. When discussed regarding follow-up regarding her severe at her [facility]; patient reported that she changed her mind she does not want any further interventions. In the ED, patient was found to be afebrile, normotensive and saturating well on room air. EKG showed normal sinus rhythm; no significant ST or T wave changes. High sensitive troponin negative. Chest x-ray did not show any acute finding. Patient referred for admission. Claudia reports uncontrolled pain and anxiety. She declined any further cardiac intervention She resides in the [place] section of facility where she was moved a few months ago and she tells me she hates her life with so much more limitation, lack of autonomy and declining health with declining QOL. She has inc SOB She knows she is in an end of life stage from adv heart failure, valve failure and does not want more surgery She wants to focus on comfort and not have return to hospital Allergies Allergy/AdvReac Type Severity Reaction Status Date / Time aripiprazole Allergy Unknown UNKNOWN Unverified 06/05/24 21: baclofen Allergy Unknown UNKNOWN Unverified 06/05/24: diazepam Allergy Unknown UNKNOWN Unverified 06/05/24:25 ketorolac Allergy Unknown UNKNOWN Unverified 06/05/24: oxaprozin Allergy Unknown UNKNOWN Unverified 06/05/24: Home Medications Medication Instructions Recorded Confirmed Type polyethylene glycol 3350 17 gram 17 g PO DAILY PRN Constipation 04/22/24 06/05/24 History oral powder packet (Miralax) aspirin 81 mg tablet,delayed 81 mg PO DAILY #30 tabs 05/04/24 06/05/24 Rx release atenolol 25 mg tablet 25 mg PO BID #60 tabs 05/04/24 06/05/24 Rx atorvastatin 40 mg tablet 40 mg PO DAILY #30 tabs 05/04/24 06/05/24 Rx bumetanide 1 mg tablet 3 mg (3 x 1 mg) PO DAILY #30 tabs 05/04/24 06/05/24 Rx duloxetine 30 mg capsule,delayed 30 mg PO DAILY #30 caps 05/04/24 06/05/24 Rx release levothyroxine 137 mcg tablet 137 mcg PO DAILY #30 tabs 05/04/24 06/05/24 Rx omeprazole 20 mg capsule,delayed 20 mg PO DAILY #60 caps 05/04/24 06/05/24 Rx release oxybutynin chloride 10 mg 10 mg PO DAILY #30 tabs 05/04/24 06/05/24 Rx tablet,extended release 24 hr potassium chloride 20 mEq 20 meq PO DAILY #30 tabs 05/04/24 06/05/24 Rx tablet,extended release trazodone 150 mg tablet 150 mg PO HS #30 tabs 05/04/24 06/05/24 Rx oxycodone 5 mg tablet 5 mg PO Q4H PRN back pain #10 tabs 06/09/24 Rx Patient History Medical History 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 Depression, unspecified CHF (congestive heart failure) 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 Encephalopathy Surgical History H/O: section Hx of tonsillectomy History of knee replacement History of hip replacement H/O spinal fusion Family History Father Prostate cancer Mother Hypertension CHF (congestive heart failure) Brother Liver cancer Colon cancer Brother History of kidney cancer Diabetes CHF (congestive heart failure) Social History Smoking Status: Never smoker Do You Dip or Chew Tobacco: No; Hx Alcohol Use: Yes Alcohol type: wine Alcohol Intake Frequency: Monthly or Less Hx Substance Use: No Preferred Language: Thai Communication Ability: Effective Agile Project Manager Required: No Beliefs That Will Affect Care: Confucianism Current Living Situation: Skilled Nursing Feels Safe at Home: Yes Assistive Devices: Walker Review of Systems Review of Systems: All systems reviewed & are unremarkable except as noted in Subjective Physical Exam Physical Exam: elderly female, mod distress resting in bed ncat, perrla neck supple, no bruits +3/6 crescendo decrescendo systolic murm ur heard loudest at the base, S1 noted, S2 obscured Chest diminished Abd soft, obese, BS+ Gen weakness Mood irritable, angry outbursts at times Skin pale, cool Results & Data Vital Signs (Past 12 Hours) Vital Signs Temp Pulse Pulse Resp BP Pulse Ox O2 Del Method 06/09/24 15:36 36.5 C 66 16 110/69 94 Room Air 06/09/24 13:01 75 06/09/24 11:09 36.5 C 75 20 97/56 L 96 Room Air 06/09/24 07:45 36.6 C 80 18 137/58 L 95 Room Air 06/09/24 06:45 73 Laboratory Results 06/09/24 06/07/24 06/06/24 Range/Units 06:40 05:47 06:28 WBC 6.10 (4.8-10.8) K/ul RBC 4.07 L (4.20-5.40) M/uL Hgb 11.8 L (12.0-16.0) g/dl Hct 36.1 L (37.0-47.0) % MCV 88.7 (80.0-100.0) fL MCH 29.0 (25.0-34.0) pg MCHC 32.7 (32.0-36.0) g/dL RDW Std Deviation 45.7 (36.4-46.3) fL RDW Coeff of Vy 14.2 (11.5-14.5) % Plt Count 192 (130-400) K/uL MPV 10.6 (9.4-12.4) fL Immature Gran % (Auto) 0.3 % Neut % (Auto) 60.6 % Lymph % (Auto) 26.2 % [place] % (Auto) 9.5 % Eos % (Auto) 2.6 % Baso % (Auto) 0.8 % Neut # (Auto) 3.69 (1.40-6.50) K/uL Lymph # (Auto) 1.60 (1.20-3.40) K/uL [place] # (Auto) 0.58 (0.11-0.59) K/uL Eos # (Auto) 0.16 (0.00-0.50) K/uL Baso # (Auto) 0.05 (0.00-0.20) K/uL Immature Gran # (Auto) 0.02 (0.01-0.20) K/uL PT (9.0-12.0) Seconds INR (0.9-1.1) APTT (21-31) Seconds PTT Ratio Sodium 140 140 141 (136-145) mmol/L Potassium 4.4 4.1 3.7 (3.5-5.1) mmol/L Chloride 103 105 104 (98-107) mmol/L Carbon Dioxide 28 29 31 (21-32) mmol/L Anion Gap 9 6 6 (3-11) BUN 25 H 28 H 20 (6-23) mg/dl Creatinine 0.89 0.95 0.82 (0.6-1.2) mg/dl Est Cr Clr Drug Dosing 46.3 43.9 50.8 ml/min eGFR 65.50 60.57 72.27 BUN/Creatinine Ratio 28.1 H 29.5 H 24.4 H (10-20) Glucose 95 93 88 (70-99(Fasting)) mg/dl Calcium 9.6 9.6 9.6 (8.6-10.3) mg/dl Phosphorus 3.3 (2.5-4.9) mg/dl Magnesium 2.2 (1.7-2.4) mg/dl Total Bilirubin (0.2-1.0) mg/dl AST (13-39) U/L ALT (7-52) U/L Alkaline Phosphatase (34-104) U/L Troponin I High Sens 11.7 (0-14) pg/ml Total Protein (6.0-8.3) gm/dl Albumin (3.4-5.0) gm/dl Globulin (2.5-4.0) gm/dl Albumin/Globulin Ratio (0.9-2) Lipase (11-82) U/L Nasal Screen MRSA (PCR) (Negative) 06/05/24 06/05/24 06/05/24 Range/Units 22:50 21:36 20:20 WBC (4.8-10.8) K/ul RBC (4.20-5.40) M/uL Hgb (12.0-16.0) g/dl Hct (37.0-47.0) % MCV (80.0-100.0) fL MCH (25.0-34.0) pg MCHC (32.0-36.0) g/dL RDW Std Deviation (36.4-46.3) fL RDW Coeff of Vy (11.5-14.5) % Plt Count (130-400) K/uL MPV (9.4-12.4) fL Immature Gran % (Auto) % Neut % (Auto) % Lymph % (Auto) % [place] % (Auto) % Eos % (Auto) % Baso % (Auto) % Neut # (Auto) (1.40-6.50) K/uL Lymph # (Auto) (1.20-3.40) K/uL [place] # (Auto) (0.11-0.59) K/uL Eos # (Auto) (0.00-0.50) K/uL Baso # (Auto) (0.00-0.20) K/uL Immature Gran # (Auto) (0.01-0.20) K/uL PT (9.0-12.0) Seconds INR (0.9-1.1) APTT (21-31) Seconds PTT Ratio Sodium (136-145) mmol/L Potassium (3.5-5.1) mmol/L Chloride (98-107) mmol/L Carbon Dioxide (21-32) mmol/L Anion Gap (3-11) BUN (6-23) mg/dl Creatinine (0.6-1.2) mg/dl Est Cr Clr Drug Dosing ml/min eGFR BUN/Creatinine Ratio (10-20) Glucose (70-99(Fasting)) mg/dl Calcium (8.6-10.3) mg/dl Phosphorus (2.5-4.9) mg/dl Magnesium (1.7-2.4) mg/dl Total Bilirubin (0.2-1.0) mg/dl AST (13-39) U/L ALT (7-52) U/L Alkaline Phosphatase (34-104) U/L Troponin I High Sens 11.4 11.9 (0-14) pg/ml Total Protein (6.0-8.3) gm/dl Albumin (3.4-5.0) gm/dl Globulin (2.5-4.0) gm/dl Albumin/Globulin Ratio (0.9-2) Lipase (11-82) U/L Nasal Screen MRSA (PCR) Negative (Negative) 06/05/24 Range/Units 17:49 WBC 9.45 (4.8-10.8) K/ul RBC 4.15 L (4.20-5.40) M/uL Hgb 12.1 (12.0-16.0) g/dl Hct 36.5 L (37.0-47.0) % MCV 88.0 (80.0-100.0) fL MCH 29.2 (25.0-34.0) pg MCHC 33.2 (32.0-36.0) g/dL RDW Std Deviation 45.1 (36.4-46.3) fL RDW Coeff of Vy 14.1 (11.5-14.5) % Plt Count 204 (130-400) K/uL MPV 10.6 (9.4-12.4) fL Immature Gran % (Auto) 0.4 % Neut % (Auto) 68.6 % Lymph % (Auto) 19.2 % [place] % (Auto) 9.8 % Eos % (Auto) 1.7 % Baso % (Auto) 0.3 % Neut # (Auto) 6.48 (1.40-6.50) K/uL Lymph # (Auto) 1.81 (1.20-3.40) K/uL [place] # (Auto) 0.93 H (0.11-0.59) K/uL Eos # (Auto) 0.16 (0.00-0.50) K/uL Baso # (Auto) 0.03 (0.00-0.20) K/uL Immature Gran # (Auto) 0.04 (0.01-0.20) K/uL PT 10.3 (9.0-12.0) Seconds INR 0.9 (0.9-1.1) APTT 26 (21-31) Seconds PTT Ratio 1.0 Sodium 139 (136-145) mmol/L Potassium 3.9 (3.5-5.1) mmol/L Chloride 102 (98-107) mmol/L Carbon Dioxide 29 (21-32) mmol/L Anion Gap 8 (3-11) BUN 24 H (6-23) mg/dl Creatinine 0.86 (0.6-1.2) mg/dl Est Cr Clr Drug Dosing 49.6 ml/min eGFR 68.25 BUN/Creatinine Ratio 27.9 H (10-20) Glucose 102 H (70-99(Fasting)) mg/dl Calcium 9.6 (8.6-10.3) mg/dl Phosphorus (2.5-4.9) mg/dl Magnesium (1.7-2.4) mg/dl Total Bilirubin 0.3 (0.2-1.0) mg/dl AST 19 (13-39) U/L ALT 16 (7-52) U/L Alkaline Phosphatase 88 (34-104) U/L Troponin I High Sens 10.2 (0-14) pg/ml Total Protein 7.0 (6.0-8.3) gm/dl Albumin 4.1 (3.4-5.0) gm/dl Globulin 2.9 (2.5-4.0) gm/dl Albumin/Globulin Ratio 1.4 (0.9-2) Lipase 53 (11-82) U/L Nasal Screen MRSA (PCR) (Negative) Diagnostic Findings Chest X-Ray 06/05/24 17:24 Chest radiograph, one view History: Chest pain Comparison: 04/22/2024 Findings: Single AP view of the chest performed. No focal consolidation or pleural effusion. No pneumothorax. The cardiomediastinal silhouette is within normal limits. Normal pulmonary vascularity. No evidence for lymphadenopathy. No visualized bony or soft tissue abnormality. Left shoulder arthroplasty. Chronic bony remodeling of the glenoid again seen. Median sternotomy wires appear intact. Impression: Normal chest radiograph Electronically signed by Albino Barker 06-05-2024 7:20 PM PG Care Time/CCT Total # of Minutes Spent Total Time Spent with Patient: Total time spent is greater than 50% in coordination of care (as documented) at patient's floor/unit and/or counseling patient: I spent 130 minutes overall addressing this case: 15 min in medical data review/discussion with referring provider(s) and/or preparation for the visit 20 min in direct interaction with the patient/exam 60 min in Advance Care Planning/Goals of Care discussions as detailed above in note (must be >16min) 15 min in subsequent review and synthesis of assessment and plan 20 min communicating with other providers regarding the patient's case: Advanced Care Planning 52080 Advanced Care Planning 30 Min 38772 Advanced Care Planning Additional 30 [place] [address] IN/OBS CONSULT LVL 5,80M (25 - SIGNIFICANT, SEPARATELY IDENTIFIABLE ) Patient Type New Medical Decision Making High Complexity Diagnoses Chest pain R07.9 Anxiety disorder due to medical condition F06.4 Advanced care planning/counseling discussion Z71.89 Encounter for hospice care discussion Z71.89 Palliative care by specialist Z51.5 Additional Codes Advanced Care Planning - 41020 Advanced Care Planning 30 Min: 85103 Advanced Care Planning 30 Min ([id number]) Advanced Care Planning - 15567 Advanced Care Planning Additional 30 Min: 39525 Advanced Care Planning Additional 30 Min ([id number])
--- NOTE | 2024-06-10 08:09 | Coding Query ---
CODING QUERY To promote full compliance with coding requirements relating to patient care, provider participation is requested in all cases of spray cementer uncertainty. Please assist us with the question(s) below: Coding Question(s): Please specify below, in your clinical opinion, the most likely cause of chest pain during this admission: ( ) Unknown likely cause of chest pain (x) Most likely Severe Aortic Stenosis ( ) Most likely Other: Please Specify Physician's Response(s): Thank you Loulou Garner Principal Diagnosis: "that condition established after study, to be chiefly responsible for occasioning the admission of the patient to the hospital for care." Co-Existing Principal Diagnosis: "when two or more diagnoses equally meet the criteria for principal diagnosis as determined by the circumstances of admission, diagnostic work up, and/or therapy provided, and the Alphabetic Index, Tabular List, or another coding guideline does not provide sequencing direction, any one of the diagnoses may be sequenced first." "When the physician has documented what appears to be a current diagnosis in the body of the record, but has not included the diagnosis in the final diagnostic statement, the physician should be asked whether the diagnosis should be added." (Source Coding Clinic 2 QTR90. p3-4) JAREN
== END 2024-06-09 17:10 | disposition hospice, inpatient (51) | DRG 307 ==
LOC: ED 17:21 → EDINP 21:30 → 2N 22:06